=== PATIENT | female | born 1940 | race Caucasian/White ===

== ENCOUNTER 2018-04-17 18:29 | Emergency (ER) | payer MEDICARE, OTHER, SELFPAY ==
[2018-04-17] VITALS (12 sets, daily range): BP systolic 121–184; BP diastolic 53–89; PULSE 18–74; RESP 13–72; TEMP 37.4; O2SAT 58–99; BMI 42.5
--- NOTE | 2018-04-17 18:37 | DI.CT.S_ITS ---
PROCEDURE: CT HEAD/BRAIN WO CON INDICATIONS: visual changes in L eye, Pressure in head TECHNIQUE: Noncontrast 4.5 mm thick angled axial sections acquired from the foramen magnum to the vertex, with coronal and sagittal reformats. For radiation dose reduction, the following was used: automated exposure control, adjustment of mA and/or kV according to patient size. COMPARISON: [facility], CT, HEAD WITHOUT CONTRAST, 04/02/2016, 15:59. [facility], CT, HEAD WITHOUT CONTRAST, 11/27/2017, 9:40. FINDINGS: Image quality: Excellent. CSF spaces: Basal cisterns are patent. No extra-axial fluid collections. The ventricles are symmetric in size and shape. Brain: Linear 5 mm hyperdensity seen in the left frontal lobe on image 21 series 2. Elsewhere, no intracranial hemorrhage or masses. There is cerebral volume loss for age, with resultant ventricular and sulcal prominence. There are periventricular and deep white matter chronic small vessel ischemic changes. There is intracranial internal carotid artery atherosclerosis. Skull and face: Calvarium and visualized facial bones appear intact, without suspicious lesions. Sinuses: Mild left sphenoid sinus disease. IMPRESSION: Linear 5 mm hyperdensity in left frontal lobe, which is technically indeterminate, possibly cortical vessel, volume averaging artifact or calcification although this was not present on the prior studies. Technically cannot entirely exclude acute blood therefore as clinically warranted, a followup head CT in 6 hours could be performed. Elsewhere, no acute intracranial abnormality. Dictated by: Josse Marshall M.D. on 04/17/2018 at 19:36 Approved by: Josse Marshall M.D. on 04/17/2018 at 19:40
--- NOTE | 2018-04-17 18:44 | ED.HA ---
HPI - Headache General Chief Complaint: Headache Stated Complaint: HEAD PRESSURE AND HIGH BLOOD PRESSURE Time Seen by Provider: 04/17/18 18:44 Source: patient Mode of arrival: wheelchair Limitations: no limitations History of Present Illness HPI Narrative: The patient arrives with a headache, she describes a headache primarily as pressure. She has discomfort in the left adventism, and in the occipital area of the scalp. The discomfort is moderate. She has blurring to the left eye, but no visual field cut. She denies confusion or dysarthria. She is currently mobile and wheelchair. She has no new focal weakness. She denies recent illness. She has a prior history of CVA this started with similar symptoms. She does not currently feel ill other than the headache. Related Data Home Medications Medication Instructions Recorded Confirmed fluoxetine [Prozac] 10 mg PO QPM #0 05/06/10 [GLUCOSAMINE/CHONDROI] PO BID #0 11/27/17 acetaminophen 500 mg PO PRN PRN #0 11/27/17 calcium carbonate-vitamin D3 PO QDAY #0 11/27/17 [Oyster Shell Calcium-Vit D3] cyanocobalamin (vitamin B-12) 1,000 mcg PO QDAY #0 11/27/17 docusate sodium 100 mg PO BID #0 11/27/17 levothyroxine 0.112 mg PO QAM #0 11/27/17 loratadine 10 mg PO QDAY #0 11/27/17 multivitamin [Multiple Vitamins] 1 tab PO QDAY #0 11/27/17 primidone PO SEE INSTRUCTIONS #0 11/27/17 psyllium husk [Metamucil] 0.52 gm PO QID #0 11/27/17 sennosides-docusate sodium [Senna 1 tab PO BIDP PRN #0 11/27/17 with Docusate Sodium] triamcinolone acetonide [Nasacort] #0 11/27/17 vit C,H-Pm-tubbp-lutein-zeaxan 1 cap PO QPM #0 11/27/17 [Ocuvite Lutein and Zeaxanthin] diphenhydramine HCl [Benadryl 25 mg PO QPM #0 12/02/17 Allergy] Previous Rx's Medication Instructions Recorded carvedilol [Coreg] 25 mg PO BID 30 Days #0 tab 11/29/17 gabapentin [Neurontin] 300 mg PO HS 30 Days #0 cap 11/29/17 prednisone 10 mg PO [facility] #20 tab 11/29/17 Allergies Allergy/AdvReac Type Severity Reaction Status Date / Time ampicillin [AMPICILLIN] Allergy Unknown Unverified 02/12/18 11:55 Review of Systems Review of Systems All systems reviewed & are unremarkable except as noted in HPI and below Constitutional Denies chills, Denies fever(s), Reports headache(s), Denies lethargy and Reports weakness Eyes Reports as per HPI, Reports blurry vision, Denies loss of peripheral vision and Denies loss of vision ENT Ears, Nose, Mouth, and Throat: Reports headache(s) Cardiovascular Denies chest pain, Denies irregular heart rhythm, Denies lightheadedness, Denies palpitations, Denies dyspnea, Denies dyspnea on exertion and Denies orthopnea Respiratory Denies cough, Denies dyspnea, Denies dyspnea on exertion and Denies wheezing Gastrointestinal Gastrointestinal: Denies abdominal pain, Denies change in bowel habits, Denies diarrhea, Denies nausea and Denies vomiting Musculoskeletal Denies back pain, Reports muscle weakness ( Nonacute.), Denies numbness and Denies tingling Integumentary/Breasts Denies erythema and Denies rash Neurologic Reports headache(s), Denies loss of vision, Denies numbness, Denies tingling and Reports weakness Endocrine Denies palpitations Allergic/Immunologic Denies wheezing [facility] Social History Smoking Status: Never smoker Exam Initial Vital Signs Initial Vital Signs: Vital Signs Temperature 99.3 F 04/17/18 18:32 Pulse Rate 18 L 04/17/18 18:32 Respiratory Rate 72 H 04/17/18 18:32 Blood Pressure 134/73 H 04/17/18 18:32 Pulse Oximetry 98 04/17/18 18:32 Const General: cooperative, ill appearing and well hydrated Nutritional Appearance: well nourished Orientation: alert, awake, oriented x3 and not confused [facility] Head: normocephalic and atraumatic Ears: external ears normal and TM's normal bilaterally Nose: external nose normal and No nasal discharge Face and sinus: sinuses nontender, face symmetric, no sinus tenderness and No dry mucous membranes Mouth: oral mucosae normal and moist mucous membranes Teeth and gingiva: dentition normal Throat: tonsils normal and uvula midline Eyes General: appearance normal, both eyes and all related structures Visual Lambert: normal visual lambert by confrontation Eyelids: eyelids normal Conjunctivae: conjunctivae normal Sclera: sclerae normal Pupils: PERRL EOM: EOM intact bilaterally Neck Neck: normal visual inspection, trachea midline, No lymphadenopathy, No midline deformity, No JVD and other ( Palpable tenderness at the C1 level, left greater than right. no meningeal signs.) Thyroid: thyroid normal Lymphatic: No lymphedema Chest Chest: normal inspection of the chest Resp Effort & Inspection: normal respiratory effort, able to speak in complete sentences, no respiratory distress and no use of accessory muscles Auscultation: clear to auscultation bilaterally, no rales, no rhonchi and no wheezes GI Inspection: non-distended Palpation: soft, no hepatosplenomegaly, No guarding, No pulsatile mass and No tender Auscultation: normal bowel sounds Skin General: no rashes or lesions noted, No jaundice and No petechiae Neuro General: alert, oriented x3, no meningeal signs and no focal motor deficits Speech: speech normal Extrem General: normal to inspection, full ROM, no clubbing, cyanosis or edema and no pedal edema Course Hospital Course: 8:[address] result has been reviewed. Radiology suggested a repeat CT in 6 hr. The area of concern is small, there is no shift, and no obvious mass effect. I explored the possibility of an MRI, the MRI department is closed. The patient will be retained here for 6 hr for repeat head CT. Orders Ordered: ED Orders 04/17/18 18:37 CT head/brain wo con Stat 04/17/18 19:08 EKG-12 Lead Stat 04/17/18 20:37 B Type Natriuretic Peptide Stat Complete Blood Count AUTO DIFF Stat Comprehensive Metabolic Panel Stat Lipase Stat Partial Thromboplastin Time Stat Prothrombin Time INR Stat Troponin with CK Cardiac Panel Stat 04/18/18 00:25 Urine Microscopic Stat 04/18/18 00:32 CT head/brain wo con Stat Sodium Chloride (Normal Saline 0.9%) 1,000 mls @ 150 mls/hr IV CONT CB Last Admin: 04/17/18 22:00 Dose: 150 mls/hr Discontinued Medications Sodium Chloride (Normal Saline 0.9%) 1,000 mls @ 1,000 mls/hr IV BOLUS ONE Stop: 04/17/18 20:07 Last Infusion: 04/17/18 22:00 Dose: 1,000 mls/hr Admin: 04/17/18 19:49 Dose: 1,000 mls/hr Vital Signs - 8 hr 04/17/18 18:32 04/17/18 19:03 04/17/18 19:28 Temperature 99.3 F Pulse Rate 18 L 64 Pulse Rate [Orthostatic Lying] 63 Pulse Rate [Orthostatic Sitting] 69 Pulse Rate [Orthostatic Standing] 74 Respiratory Rate 72 H Blood Pressure 134/73 H Blood Pressure [Left Arm] 159/66 H Blood Pressure [Orthostatic Lying] 144/53 H Blood Pressure [Orthostatic Sitting] 164/75 H Blood Pressure [Orthostatic Standing] 146/70 H Blood Pressure [Right Arm] Pulse Oximetry 98 99 04/17/18 19:29 04/17/18 20:00 04/17/18 20:48 Temperature Pulse Rate 74 60 58 L Pulse Rate [Orthostatic Lying] Pulse Rate [Orthostatic Sitting] Pulse Rate [Orthostatic Standing] Respiratory Rate 13 16 20 Blood Pressure Blood Pressure [Left Arm] 146/70 H Blood Pressure [Orthostatic Lying] Blood Pressure [Orthostatic Sitting] Blood Pressure [Orthostatic Standing] Blood Pressure [Right Arm] 184/89 H Pulse Oximetry 99 94 04/17/18 21:00 04/17/18 21:30 04/17/18 22:00 Temperature Pulse Rate 58 L 68 63 Pulse Rate [Orthostatic Lying] Pulse Rate [Orthostatic Sitting] Pulse Rate [Orthostatic Standing] Respiratory Rate Blood Pressure Blood Pressure [Left Arm] 160/56 H Blood Pressure [Orthostatic Lying] Blood Pressure [Orthostatic Sitting] Blood Pressure [Orthostatic Standing] Blood Pressure [Right Arm] 130/81 H 135/66 H Pulse Oximetry 58 L 97 04/17/18 22:30 04/17/18 23:00 04/17/18 23:22 Temperature Pulse Rate 63 58 L 60 Pulse Rate [Orthostatic Lying] Pulse Rate [Orthostatic Sitting] Pulse Rate [Orthostatic Standing] Respiratory Rate 18 Blood Pressure Blood Pressure [Left Arm] Blood Pressure [Orthostatic Lying] Blood Pressure [Orthostatic Sitting] Blood Pressure [Orthostatic Standing] Blood Pressure [Right Arm] 135/66 H 126/60 H 121/59 H Pulse Oximetry 97 94 94 MDM - Headache Lab Data Result diagrams: 04/17/18 20:37 04/17/18 20:37 Lab Results 04/17/18 04/17/18 04/17/18 Range/Units 20:37 20:37 20:37 WBC 5.7 (4.5-11.0) X10^3/uL RBC 3.00 L (4.0-5.2) X10^6/uL Hgb 10.7 L (12.0-16.0) g/dL Hct 31.1 L (36-46) % MCV 103.4 H (80-100) fL MCH 35.6 H (26-34) PG MCHC 34.5 (30-36) % RDW 13.2 (11.6-14.8) % Plt Count 177 (150-400) X10^3/uL Neut % (Auto) 62.5 (50-75) % Lymph % (Auto) 21.9 L (25-40) % [place] % (Auto) 11.4 (3-14) % Eos % (Auto) 2.9 (2-4) % Baso % (Auto) 1.3 (0-2) % Neut # (Auto) 3600 (2018-0488) /uL PT 11.3 (10.1-12.7) SECONDS INR 1.0 (0.9-1.3) APTT 24 L (26.4-36.2) SECONDS Sodium 141 (137-145) mmol/L Potassium 4.7 (3.4-5.1) mmol/L Chloride 108 H (98-107) mmol/L Carbon Dioxide 26 (22-32) mmol/L BUN 33 H (7-17) mg/dL Creatinine 1.40 H (0.52-1.04) mg/dL Estimated GFR 36.4 L (>60) mL/min BUN/Creatinine Ratio 23.6 H (6-22) Glucose 102 (80-110) mg/dL Calcium 9.2 (8.4-10.2) mg/dL Total Bilirubin 0.2 (0.2-1.3) mg/dL AST 17 (14-36) IU/L ALT 28 (9-52) IU/L Alkaline Phosphatase 86 (38-126) U/L Total Creatine Kinase < 20 L (30-135) U/L Troponin I < 0.012 (0.01-0.034) ng/mL B-Natriuretic Peptide (<100) Total Protein 6.5 (6.3-8.2) g/dL Albumin 3.5 (3.5-5.0) g/dL Globulin 3.0 (1.7-4.1) g/dL Albumin/Globulin Ratio 1.2 (1.0-2.8) Lipase 143 (23-300) U/L / Range/Units 20:37 WBC (4.5-11.0) X10^3/uL RBC (4.0-5.2) X10^6/uL Hgb (12.0-16.0) g/dL Hct (36-46) % MCV (80-100) fL MCH (26-34) PG MCHC (30-36) % RDW (11.6-14.8) % Plt Count (150-400) X10^3/uL Neut % (Auto) (50-75) % Lymph % (Auto) (25-40) % Canyon % (Auto) (3-14) % Eos % (Auto) (2-4) % Baso % (Auto) (0-2) % Neut # (Auto) (0379-3405) /uL PT (10.1-12.7) SECONDS INR (0.9-1.3) APTT (26.4-36.2) SECONDS Sodium (137-145) mmol/L Potassium (3.4-5.1) mmol/L Chloride (98-107) mmol/L Carbon Dioxide (22-32) mmol/L BUN (7-17) mg/dL Creatinine (0.52-1.04) mg/dL Estimated GFR (>60) mL/min BUN/Creatinine Ratio (6-22) Glucose (80-110) mg/dL Calcium (8.4-10.2) mg/dL Total Bilirubin (0.2-1.3) mg/dL AST (14-36) IU/L ALT (9-52) IU/L Alkaline Phosphatase (38-126) U/L Total Creatine Kinase (30-135) U/L Troponin I (0.01-0.034) ng/mL B-Natriuretic Peptide 64.3 (<100) Total Protein (6.3-8.2) g/dL Albumin (3.5-5.0) g/dL Globulin (1.7-4.1) g/dL Albumin/Globulin Ratio (1.0-2.8) Lipase (23-300) U/L Imaging Data CT scan - head: Radiologist's impression: Linear 5 mm hyperdensity in left frontal lobe, which is technically indeterminate, possibly cortical vessel, volume averaging artifact or calcification although this was not present on the prior studies Repeat Head CT: Radiologist's impression: No acute intracranial process is identified. Atrophic changes are noted. Age-related ischemic changes are also noted in the white matter. The previously noted hyperdense linear focus is not appreciated. ECG Data Attestation: I personally reviewed and interpreted this ECG as follows: ( Sinus bradycardia rate 59. nonspecific ST T wave changes. No acute changes. Normal intervals. No ectopy.) Discharge Plan Departure Patient Disposition: Home, Self-Care Clinical Impression: Acute tension headache Instructions: Tension Headache Activity Restrictions/Additional Instructions: Tylenol 2 tablets every 4 hours as needed for headache, or Advil 2 tablets every 6 hours as needed for headache. Apply warm compresses to your posterior neck, this may help the headache also. Follow up with your doctor if symptoms persist, return here if significantly worse. Prescriptions: No Action fluoxetine [Prozac] 10 MG capsule 10 mg PO QPM Qty: 0 RF: 0 levothyroxine 112 MCG tablet 0.112 mg PO QAM Qty: 0 RF: 0 primidone 250 MG tablet PO SEE INSTRUCTIONS Qty: 0 RF: 0 calcium carbonate-vitamin D3 [Oyster Shell Calcium-Vit D3] 500 mg(1,250mg) -200 unit Tablet PO QDAY Qty: 0 RF: 0 acetaminophen 500 MG tablet 500 mg PO PRN PRNQty: 0 RF: 0 loratadine 10 MG tablet 10 mg PO QDAY Qty: 0 RF: 0 triamcinolone acetonide [Nasacort] 55 MCG/PUFF aerosol,spray Qty: 0 RF: 0 [GLUCOSAMINE/CHONDROI] PO BID Qty: 0 RF: 0 cyanocobalamin (vitamin B-12) 1,000 MCG tablet extended release 1,000 mcg PO QDAY Qty: 0 RF: 0 multivitamin [Multiple Vitamins] 1 EACH tablet 1 tab PO QDAY Qty: 0 RF: 0 vit C,P-Yt-ztuwf-lutein-zeaxan [Ocuvite Lutein and Zeaxanthin] 1 EACH capsule 1 cap PO QPM Qty: 0 RF: 0 docusate sodium 100 MG capsule 100 mg PO BID Qty: 0 RF: 0 psyllium husk [Metamucil] 0.52 GM capsule 0.52 gm PO QID Qty: 0 RF: 0 sennosides-docusate sodium [Senna with Docusate Sodium] 8.6 MG/50 MG tablet 1 tab PO BIDP PRNQty: 0 RF: 0 carvedilol [Coreg] 25 MG tablet 25 mg PO BID 30 Days Qty: 0 RF: 0 gabapentin [Neurontin] 300 MG capsule 300 mg PO HS 30 Days Qty: 0 RF: 0 prednisone 10 MG tablet 10 mg PO [facility] Qty: 20 RF: 0 diphenhydramine HCl [Benadryl Allergy] 25 MG tablet 25 mg PO QPM Qty: 0 RF: 0
--- NOTE | 2018-04-17 18:50 | ED_ITS ---
HPI - Headache General Chief Complaint: Headache Stated Complaint: HEAD PRESSURE AND HIGH BLOOD PRESSURE Time Seen by Provider: 04/17/18 18:44 Source: patient Mode of arrival: wheelchair Limitations: no limitations History of Present Illness HPI Narrative: The patient arrives with a headache, she describes a headache primarily as pressure. She has discomfort in the left jainism, and in the occipital area of the scalp. The discomfort is moderate. She has blurring to the left eye, but no visual field cut. She denies confusion or dysarthria. She is currently mobile and wheelchair. She has no new focal weakness. She denies recent illness. She has a prior history of CVA this started with similar symptoms. She does not currently feel ill other than the headache. Related Data Home Medications Medication Instructions Recorded Confirmed fluoxetine [Prozac] 10 mg PO QPM #0 05/06/10 [GLUCOSAMINE/CHONDROI] PO BID #0 11/27/17 acetaminophen 500 mg PO PRN PRN #0 11/27/17 calcium carbonate-vitamin D3 PO QDAY #0 11/27/17 [Oyster Shell Calcium-Vit D3] cyanocobalamin (vitamin B-12) 1,000 mcg PO QDAY #0 11/27/17 docusate sodium 100 mg PO BID #0 11/27/17 levothyroxine 0.112 mg PO QAM #0 11/27/17 loratadine 10 mg PO QDAY #0 11/27/17 multivitamin [Multiple Vitamins] 1 tab PO QDAY #0 11/27/17 primidone PO SEE INSTRUCTIONS #0 11/27/17 psyllium husk [Metamucil] 0.52 gm PO QID #0 11/27/17 sennosides-docusate sodium [Senna 1 tab PO BIDP PRN #0 11/27/17 with Docusate Sodium] triamcinolone acetonide [Nasacort] #0 11/27/17 vit C,A-Rs-yaeua-lutein-zeaxan 1 cap PO QPM #0 11/27/17 [Ocuvite Lutein and Zeaxanthin] diphenhydramine HCl [Benadryl 25 mg PO QPM #0 12/02/17 Allergy] Previous Rx's Medication Instructions Recorded carvedilol [Coreg] 25 mg PO BID 30 Days #0 tab 11/29/17 gabapentin [Neurontin] 300 mg PO HS 30 Days #0 cap 11/29/17 prednisone 10 mg PO [facility] #20 tab 11/29/17 Allergies Allergy/AdvReac Type Severity Reaction Status Date / Time ampicillin [AMPICILLIN] Allergy Unknown Unverified 02/12/18 11:55 Review of Systems Review of Systems All systems reviewed & are unremarkable except as noted in HPI and below Constitutional Denies chills, Denies fever(s), Reports headache(s), Denies lethargy and Reports weakness Eyes Reports as per HPI, Reports blurry vision, Denies loss of peripheral vision and Denies loss of vision ENT Ears, Nose, Mouth, and Throat: Reports headache(s) Cardiovascular Denies chest pain, Denies irregular heart rhythm, Denies lightheadedness, Denies palpitations, Denies dyspnea, Denies dyspnea on exertion and Denies orthopnea Respiratory Denies cough, Denies dyspnea, Denies dyspnea on exertion and Denies wheezing Gastrointestinal Gastrointestinal: Denies abdominal pain, Denies change in bowel habits, Denies diarrhea, Denies nausea and Denies vomiting Musculoskeletal Denies back pain, Reports muscle weakness ( Nonacute.), Denies numbness and Denies tingling Integumentary/Breasts Denies erythema and Denies rash Neurologic Reports headache(s), Denies loss of vision, Denies numbness, Denies tingling and Reports weakness Endocrine Denies palpitations Allergic/Immunologic Denies wheezing [facility] Social History Smoking Status: Never smoker Exam Initial Vital Signs Initial Vital Signs: Vital Signs Temperature 99.3 F 04/17/18 18:32 Pulse Rate 18 L 04/17/18 18:32 Respiratory Rate 72 H 04/17/18 18:32 Blood Pressure 134/73 H 04/17/18 18:32 Pulse Oximetry 98 04/17/18 18:32 Const General: cooperative, ill appearing and well hydrated Nutritional Appearance: well nourished Orientation: alert, awake, oriented x3 and not confused [facility] Head: normocephalic and atraumatic Ears: external ears normal and TM's normal bilaterally Nose: external nose normal and No nasal discharge Face and sinus: sinuses nontender, face symmetric, no sinus tenderness and No dry mucous membranes Mouth: oral mucosae normal and moist mucous membranes Teeth and gingiva: dentition normal Throat: tonsils normal and uvula midline Eyes General: appearance normal, both eyes and all related structures Visual Lambert: normal visual lambert by confrontation Eyelids: eyelids normal Conjunctivae: conjunctivae normal Sclera: sclerae normal Pupils: PERRL EOM: EOM intact bilaterally Neck Neck: normal visual inspection, trachea midline, No lymphadenopathy, No midline deformity, No JVD and other ( Palpable tenderness at the C1 level, left greater than right. no meningeal signs.) Thyroid: thyroid normal Lymphatic: No lymphedema Chest Chest: normal inspection of the chest Resp Effort & Inspection: normal respiratory effort, able to speak in complete sentences, no respiratory distress and no use of accessory muscles Auscultation: clear to auscultation bilaterally, no rales, no rhonchi and no wheezes GI Inspection: non-distended Palpation: soft, no hepatosplenomegaly, No guarding, No pulsatile mass and No tender Auscultation: normal bowel sounds Skin General: no rashes or lesions noted, No jaundice and No petechiae Neuro General: alert, oriented x3, no meningeal signs and no focal motor deficits Speech: speech normal Extrem General: normal to inspection, full ROM, no clubbing, cyanosis or edema and no pedal edema Course Hospital Course: 8:[address] result has been reviewed. Radiology suggested a repeat CT in 6 hr. The area of concern is small, there is no shift, and no obvious mass effect. I explored the possibility of an MRI, the MRI department is closed. The patient will be retained here for 6 hr for repeat head CT. Orders Ordered: ED Orders 04/17/18 18:37 CT head/brain wo con Stat 04/17/18 19:08 EKG-12 Lead Stat 04/17/18 20:37 B Type Natriuretic Peptide Stat Complete Blood Count AUTO DIFF Stat Comprehensive Metabolic Panel Stat Lipase Stat Partial Thromboplastin Time Stat Prothrombin Time INR Stat Troponin with CK Cardiac Panel Stat 04/18/18 00:25 Urine Microscopic Stat 04/18/18 00:32 CT head/brain wo con Stat Sodium Chloride (Normal Saline 0.9%) 1,000 mls @ 150 mls/hr IV CONT CB Last Admin: 04/17/18 22:00 Dose: 150 mls/hr Discontinued Medications Sodium Chloride (Normal Saline 0.9%) 1,000 mls @ 1,000 mls/hr IV BOLUS ONE Stop: 04/17/18 20:07 Last Infusion: 04/17/18 22:00 Dose: 1,000 mls/hr Admin: 04/17/18 19:49 Dose: 1,000 mls/hr Vital Signs - 8 hr 04/17/18 18:32 04/17/18 19:03 04/17/18 19:28 Temperature 99.3 F Pulse Rate 18 L 64 Pulse Rate [Orthostatic Lying] 63 Pulse Rate [Orthostatic Sitting] 69 Pulse Rate [Orthostatic Standing] 74 Respiratory Rate 72 H Blood Pressure 134/73 H Blood Pressure [Left Arm] 159/66 H Blood Pressure [Orthostatic Lying] 144/53 H Blood Pressure [Orthostatic Sitting] 164/75 H Blood Pressure [Orthostatic Standing] 146/70 H Blood Pressure [Right Arm] Pulse Oximetry 98 99 04/17/18 19:29 04/17/18 20:00 04/17/18 20:48 Temperature Pulse Rate 74 60 58 L Pulse Rate [Orthostatic Lying] Pulse Rate [Orthostatic Sitting] Pulse Rate [Orthostatic Standing] Respiratory Rate 13 16 20 Blood Pressure Blood Pressure [Left Arm] 146/70 H Blood Pressure [Orthostatic Lying] Blood Pressure [Orthostatic Sitting] Blood Pressure [Orthostatic Standing] Blood Pressure [Right Arm] 184/89 H Pulse Oximetry 99 94 04/17/18 21:00 04/17/18 21:30 04/17/18 22:00 Temperature Pulse Rate 58 L 68 63 Pulse Rate [Orthostatic Lying] Pulse Rate [Orthostatic Sitting] Pulse Rate [Orthostatic Standing] Respiratory Rate Blood Pressure Blood Pressure [Left Arm] 160/56 H Blood Pressure [Orthostatic Lying] Blood Pressure [Orthostatic Sitting] Blood Pressure [Orthostatic Standing] Blood Pressure [Right Arm] 130/81 H 135/66 H Pulse Oximetry 58 L 97 04/17/18 22:30 04/17/18 23:00 04/17/18 23:22 Temperature Pulse Rate 63 58 L 60 Pulse Rate [Orthostatic Lying] Pulse Rate [Orthostatic Sitting] Pulse Rate [Orthostatic Standing] Respiratory Rate 18 Blood Pressure Blood Pressure [Left Arm] Blood Pressure [Orthostatic Lying] Blood Pressure [Orthostatic Sitting] Blood Pressure [Orthostatic Standing] Blood Pressure [Right Arm] 135/66 H 126/60 H 121/59 H Pulse Oximetry 97 94 94 MDM - Headache Lab Data Result diagrams: 04/17/18 20:37 04/17/18 20:37 Lab Results 04/17/18 04/17/18 04/17/18 Range/Units 20:37 20:37 20:37 WBC 5.7 (4.5-11.0) X10^3/uL RBC 3.00 L (4.0-5.2) X10^6/uL Hgb 10.7 L (12.0-16.0) g/dL Hct 31.1 L (36-46) % MCV 103.4 H (80-100) fL MCH 35.6 H (26-34) PG MCHC 34.5 (30-36) % RDW 13.2 (11.6-14.8) % Plt Count 177 (150-400) X10^3/uL Neut % (Auto) 62.5 (50-75) % Lymph % (Auto) 21.9 L (25-40) % [place] % (Auto) 11.4 (3-14) % Eos % (Auto) 2.9 (2-4) % Baso % (Auto) 1.3 (0-2) % Neut # (Auto) 3600 (0190-1546) /uL PT 11.3 (10.1-12.7) SECONDS INR 1.0 (0.9-1.3) APTT 24 L (26.4-36.2) SECONDS Sodium 141 (137-145) mmol/L Potassium 4.7 (3.4-5.1) mmol/L Chloride 108 H (98-107) mmol/L Carbon Dioxide 26 (22-32) mmol/L BUN 33 H (7-17) mg/dL Creatinine 1.40 H (0.52-1.04) mg/dL Estimated GFR 36.4 L (>60) mL/min BUN/Creatinine Ratio 23.6 H (6-22) Glucose 102 (80-110) mg/dL Calcium 9.2 (8.4-10.2) mg/dL Total Bilirubin 0.2 (0.2-1.3) mg/dL AST 17 (14-36) IU/L ALT 28 (9-52) IU/L Alkaline Phosphatase 86 (38-126) U/L Total Creatine Kinase < 20 L (30-135) U/L Troponin I < 0.012 (0.01-0.034) ng/mL B-Natriuretic Peptide (<100) Total Protein 6.5 (6.3-8.2) g/dL Albumin 3.5 (3.5-5.0) g/dL Globulin 3.0 (1.7-4.1) g/dL Albumin/Globulin Ratio 1.2 (1.0-2.8) Lipase 143 (23-300) U/L / Range/Units 20:37 WBC (4.5-11.0) X10^3/uL RBC (4.0-5.2) X10^6/uL Hgb (12.0-16.0) g/dL Hct (36-46) % MCV (80-100) fL MCH (26-34) PG MCHC (30-36) % RDW (11.6-14.8) % Plt Count (150-400) X10^3/uL Neut % (Auto) (50-75) % Lymph % (Auto) (25-40) % [place] % (Auto) (3-14) % Eos % (Auto) (2-4) % Baso % (Auto) (0-2) % Neut # (Auto) (6925-5036) /uL PT (10.1-12.7) SECONDS INR (0.9-1.3) APTT (26.4-36.2) SECONDS Sodium (137-145) mmol/L Potassium (3.4-5.1) mmol/L Chloride (98-107) mmol/L Carbon Dioxide (22-32) mmol/L BUN (7-17) mg/dL Creatinine (0.52-1.04) mg/dL Estimated GFR (>60) mL/min BUN/Creatinine Ratio (6-22) Glucose (80-110) mg/dL Calcium (8.4-10.2) mg/dL Total Bilirubin (0.2-1.3) mg/dL AST (14-36) IU/L ALT (9-52) IU/L Alkaline Phosphatase (38-126) U/L Total Creatine Kinase (30-135) U/L Troponin I (0.01-0.034) ng/mL B-Natriuretic Peptide 64.3 (<100) Total Protein (6.3-8.2) g/dL Albumin (3.5-5.0) g/dL Globulin (1.7-4.1) g/dL Albumin/Globulin Ratio (1.0-2.8) Lipase (23-300) U/L Imaging Data CT scan - head: Radiologist's impression: Linear 5 mm hyperdensity in left frontal lobe, which is technically indeterminate, possibly cortical vessel, volume averaging artifact or calcification although this was not present on the prior studies Repeat Head CT: Radiologist's impression: No acute intracranial process is identified. Atrophic changes are noted. Age-related ischemic changes are also noted in the white matter. The previously noted hyperdense linear focus is not appreciated. ECG Data Attestation: I personally reviewed and interpreted this ECG as follows: ( Sinus bradycardia rate 59. nonspecific ST T wave changes. No acute changes. Normal intervals. No ectopy.) Discharge Plan Departure Patient Disposition: Home, Self-Care Clinical Impression: Acute tension headache Instructions: Tension Headache Activity Restrictions/Additional Instructions: Tylenol 2 tablets every 4 hours as needed for headache, or Advil 2 tablets every 6 hours as needed for headache. Apply warm compresses to your posterior neck, this may help the headache also. Follow up with your doctor if symptoms persist, return here if significantly worse. Prescriptions: No Action fluoxetine [Prozac] 10 MG capsule 10 mg PO QPM Qty: 0 RF: 0 levothyroxine 112 MCG tablet 0.112 mg PO QAM Qty: 0 RF: 0 primidone 250 MG tablet PO SEE INSTRUCTIONS Qty: 0 RF: 0 calcium carbonate-vitamin D3 [Oyster Shell Calcium-Vit D3] 500 mg(1,250mg) - 200 unit Tablet PO QDAY Qty: 0 RF: 0 acetaminophen 500 MG tablet 500 mg PO PRN PRNQty: 0 RF: 0 loratadine 10 MG tablet 10 mg PO QDAY Qty: 0 RF: 0 triamcinolone acetonide [Nasacort] 55 MCG/PUFF aerosol,spray Qty: 0 RF: 0 [GLUCOSAMINE/CHONDROI] PO BID Qty: 0 RF: 0 cyanocobalamin (vitamin B-12) 1,000 MCG tablet extended release 1,000 mcg PO QDAY Qty: 0 RF: 0 multivitamin [Multiple Vitamins] 1 EACH tablet 1 tab PO QDAY Qty: 0 RF: 0 vit C,F-Jd-bmfpc-lutein-zeaxan [Ocuvite Lutein and Zeaxanthin] 1 EACH capsule 1 cap PO QPM Qty: 0 RF: 0 docusate sodium 100 MG capsule 100 mg PO BID Qty: 0 RF: 0 psyllium husk [Metamucil] 0.52 GM capsule 0.52 gm PO QID Qty: 0 RF: 0 sennosides-docusate sodium [Senna with Docusate Sodium] 8.6 MG/50 MG tablet 1 tab PO BIDP PRNQty: 0 RF: 0 carvedilol [Coreg] 25 MG tablet 25 mg PO BID 30 Days Qty: 0 RF: 0 gabapentin [Neurontin] 300 MG capsule 300 mg PO HS 30 Days Qty: 0 RF: 0 prednisone 10 MG tablet 10 mg PO [facility] Qty: 20 RF: 0 diphenhydramine HCl [Benadryl Allergy] 25 MG tablet 25 mg PO QPM Qty: 0 RF: 0
[2018-04-17] MEDS: SODIUM CHLORIDE 0.9% 1,000 ML 1000 ML IV (19:49)
[2018-04-17 20:58] LABS: Alanine Aminotransferase 28 IU/L (9-52); Albumin 3.5 g/dL (3.5-5.0); Albumin Globulin Ratio 1.2 (1.0-2.8); Alkaline Phosphatase 86 U/L (38-126); Aspartate Aminotransferase 17 IU/L (14-36); BUN Creatinine Ratio 23.6 (6-22); Bilirubin Total 0.2 mg/dL (0.2-1.3); Blood Urea Nitrogen 33 mg/dL (7-17); Calcium 9.2 mg/dL (8.4-10.2); Carbon Dioxide 26 mmol/L (22-32); Chloride 108 mmol/L (98-107); Creatine Kinase < 20 U/L (30-135); Estimated Glomerular Filt Rate 36.4 mL/min (>60); Glucose 102 mg/dL (80-110); HEMOLYSIS < 15 (0-50); Lipase 143 U/L (23-300); Potassium 4.7 mmol/L (3.4-5.1); Sodium 141 mmol/L (137-145); Total Protein 6.5 g/dL (6.3-8.2)
[2018-04-17 21:00] LABS: Prothrombin Time 11.3 SECONDS (10.1-12.7)
[2018-04-17 21:03] LABS: PTT Partial Thromboplastin Tim 24 SECONDS (26.4-36.2)
[2018-04-17 21:10] LABS: Troponin I < 0.012 ng/mL (0.01-0.034)
[2018-04-17 21:14] LABS: Add Manual Diff / Slide Review NO; Basophils Percent Auto 1.3 % (0-2); Eosinophils Percent Auto 2.9 % (2-4); Hematocrit 31.1 % (36-46); Hemoglobin 10.7 g/dL (12.0-16.0); Lymphocytes Percent Auto 21.9 % (25-40); Mean Corpuscular HGB Conc 34.5 % (30-36); Mean Corpuscular Hemoglobin 35.6 PG (26-34); Mean Corpuscular Volume 103.4 fL (80-100); Monocytes Percent Auto 11.4 % (3-14); Neutrophils Absolute Auto 3600 /uL (3000-5900); Neutrophils Percent Auto 62.5 % (50-75); Platelet Count 177 X10^3/uL (150-400); Red Cell Distribution Width 13.2 % (11.6-14.8); White Blood Cell Count 5.7 X10^3/uL (4.5-11.0)
[2018-04-17 21:28] LABS: B Type Natriuretic Peptide 64.3 (<100)
[2018-04-17] MEDS: SODIUM CHLORIDE 0.9% 1,000 ML 150 ML IV (22:00)
[2018-04-18] VITALS: BP 123/52; PULSE 68; RESP 17; O2SAT 96
--- NOTE | 2018-04-18 00:32 | DI.CT.S_ITS ---
PROCEDURE: CT HEAD/BRAIN WO CON INDICATIONS: Headache. Possible small hemorrhage TECHNIQUE: Noncontrast 4.5 mm thick angled axial sections acquired from the foramen magnum to the vertex, with coronal and sagittal reformats. For radiation dose reduction, the following was used: automated exposure control, adjustment of mA and/or kV according to patient size. COMPARISON: [facility], CT, HEAD WITHOUT CONTRAST, 11/27/2017, 9:40. [facility], CT, CT HEAD/BRAIN WO CON, 04/17/2018, 18:35. [facility], CT, HEAD WITHOUT CONTRAST, 04/02/2016, 15:59. [facility], CT, HEAD WITHOUT CONTRAST, 06/20/2015, 15:25. FINDINGS: Image quality: Excellent. CSF spaces: Basal cisterns are patent. No extra-axial fluid collections. The ventricles are symmetric in size and shape. Brain: No intracranial bleeds or masses. Hyperdensity is identified in the posterior left frontal lobe is not seen on the current study. There is cerebral volume loss for age, with resultant ventricular and sulcal prominence. There are periventricular and deep white matter chronic small vessel ischemic changes. Small, chronic bilateral internal capsule lacunar infarcts are stable compared to prior exams. There is intracranial internal carotid artery atherosclerosis. Skull and face: Calvarium and visualized facial bones appear intact, without suspicious lesions. Sinuses: Visualized sinuses and mastoids are clear. IMPRESSION: No acute intracranial disease process. Dictated by: Delia Diaz MD, PhD on 04/18/2018 at 7:22 Approved by: Delia Diaz MD, PhD on 04/18/2018 at 7:27
[2018-04-18 01:42] LABS: RBC Urine None Seen (0-5/HPF)
[2018-04-18 01:48] LABS: WBC Urine 1-5/HPF (0-5/HPF)
[2018-04-18 01:49] VITALS: BP 166/69; PULSE 62; RESP 13; O2SAT 96
[2018-04-18 01:49] LABS: Bacteria Urine Few (2-10); Culture Indicated Urine Specimen Cultured; Hyaline Casts Urine 0-1/LPF
== END 2018-04-18 01:49 | disposition home or self-care (01) ==
PROVIDERS: Emergency Provider Emergency Medicine; PCP Family Medicine
DX: G44.209 Tension-type headache, unspecified, not intractable (principal)
CPT/HCPCS: 70450; 80053; 81003; 81015; 82550; 82553; 83690; 83880; 84484; 85025; 85610; 85730; 87086; 93005; 96360; 96361; 99285

== ENCOUNTER → 2021-11-09 15:37 | Outpatient (CLI) | payer MEDICARE, OTHER, MEDICAID, SELFPAY ==
--- NOTE | 2021-11-09 15:45 | DI.MRI.S_ITS ---
PROCEDURE: MR HIP RT WO CON INDICATIONS: RULING OUT FRACTURE TECHNIQUE: Noncontrast coronal T1 spin echo and STIR through the bony pelvis. Coronal and axial T2 fast spin echo with fat saturation, sagittal T1 spin echo, and oblique axial T2 fast spin echo with fat saturation through the hip. COMPARISON: None. FINDINGS: Image quality: Excellent. Bones and joints: Osteoarthritic changes are noted in bilateral hip joints slightly worse on the right side with bilateral superior joint space narrowing, subchondral sclerosis and lateral small marginal osteophyte formation. No marrow edema. No intraosseous lesions or fractures. No avascular necrosis of the femoral heads. The visualized lower lumbar spine appears normally aligned. Tendons and ligaments: Right gluteus medius and minimus tendinosis and low-grade partial-thickness tear at their insertions on greater trochanter is seen extending to musculotendinous junction, without associated muscle atrophy. The nearby proximal iliotibial band also appears intact. The iliopsoas tendon appears intact, without adjacent bursal fluid collections or evidence for impingement syndrome. Tendinosis involving origin of hamstring tendons at their insertions on ischial tuberosity is seen. There is mild muscle strain/low-grade partial-thickness tear involving right pectineus muscle and right adductor longus and brevis muscles. The ligamentum teres appears intact where visualized. Labrum and cartilage: Focal area of signal abnormality involving superior anterior right hip labrum concerning for focal labral tear. Thinning of articulating cartilages of femoral head is also seen. The alpha angle of the femur is within normal limits at less than 55 degrees. Soft tissues: Visualized muscles demonstrate normal bulk and internal signal. Quadratus femoris muscle demonstrates no internal edema to suggest ischiofemoral impingement. The proximal sciatic neurovascular bundle appears normal adjacent to the hamstring tendons. No free pelvic fluid. Bladder wall thickness is normal. Genitourinary structures and bowel loops appear normal where visualized. IMPRESSION: 1. No acute pelvic or right hip fracture. No hip dislocation. Right worse than left bilateral hip joint osteoarthritis. No evidence of avascular necrosis of femoral head. 2. Tendinosis and low-grade partial-thickness tear involving right gluteus medius and minimus tendons extending to musculotendinous junction. Tendinosis involving right hamstring tendon origins at ischial tuberosity. Mild muscle strain/low-grade intrasubstance partial-thickness tear involving right pectineus muscle and right adductor longus and brevis muscles. 3. Finding is concerning for focal superior anterior right hip labral tear. Thinning of articulating cartilages in right femoral head. Dictated by: Andrew Logan M.D. on 11/10/2021 at 8:30 Approved by: Andrew Logan M.D. on 11/10/2021 at 8:40
--- NOTE | 2021-11-09 15:45 | DI.MRI.S_ITS ---
PROCEDURE: MR LUMBAR SPINE WO CON INDICATIONS: Clinical concern for FRACTURE TECHNIQUE: Noncontrast sagittal T1 spin echo and T2 fast echo, sagittal STIR, axial T1 and T2 fast spin echo through the lumbar spine. In cases with scoliosis, additional coronal T2 fast spin echo may be performed. COMPARISON: [facility], MR, L-SPINE WITHOUT CONTRAST, 09/23/2014, 10:47. [facility], MR, L-SPINE WITHOUT CONTRAST, 04/20/2008, 17:45. [facility], MR, L-SPINE WITHOUT CONTRAST, 02/12/2006, 10:51. [facility], MR, L-SPINE W&WO CONTRAST, 11/28/2017, 13:20. [facility], MR, L-SPINE WITHOUT CONTRAST, 02/08/2016, 10:17. FINDINGS: Image quality: This examination is limited by involuntary motion artifact. Alignment and Curvature: There is [id number] levoconvex lumbar scoliosis. Minimal retrolisthesis is seen at L3-L4 and L4-L5. Bone Marrow: Marrow is of normal overall signal. Areas of fatty metaplasia can be seen, including involving the sacrum. No acute vertebral body compression fractures. Spinal Cord: Conus medullaris terminates at the L1 level. Visualized cord demonstrates normal signal and size. Paraspinous Soft Tissues: No paravertebral masses. T12-L1: Wzas-bv-qrnnzexl loss of disc height and disc signal can be seen. Mild to moderate disc bulge is seen, which is eccentric the left. Moderate facet joint hypertrophy is seen. There is moderate right-sided and moderate to severe left-sided neural foraminal narrowing seen. There is a degree of compression seen upon exiting left T12 nerve root. Mild central canal narrowing is seen. When comparison is made with the prior images, these findings are similar. L1-L2: Moderate to severe loss of disc height and disc signal can be seen. Bridging endplate osteophytes are seen. At least moderate disc bulge is seen, which is eccentric to the right. Bridging endplate osteophytes are seen on the right, as on series 2, image 6. Moderate facet joint hypertrophy is seen. There is moderate to severe right-sided neural foraminal narrowing, with a degree of compression upon exiting right L1 nerve root. Mild left-sided neural foraminal narrowing can be seen. Mild to moderate central canal narrowing is seen. No significant change from the prior. L2-L3: Moderate to severe loss of disc height and disc signal can be seen on the right side. Bridging endplate osteophytes are seen on the right, as on series 2, image 5. At least moderate disc bulge is seen, which is eccentric to the right. Moderate facet joint hypertrophy is seen. There is moderate right-sided and minimal left-sided neural foraminal narrowing seen. Moderate central canal narrowing is seen. No significant change from the prior. L3-L4: At least moderate loss of disc height and disc signal can be seen. Bridging endplate osteophytes are seen right side. Moderate disc bulge is seen, which is eccentric to the right. There is a central/left disc protrusion seen. Moderate to prominent facet hypertrophy can be seen at this level. There is at least moderate bilateral neural foraminal narrowing seen. There is a degree of compression seen upon the exiting nerve roots. Moderate to severe central canal narrowing is seen at this level. Stable from the prior study. L4-L5: Moderate to severe loss of disc height and disc signal can be seen. Bridging endplate osteophytes are seen on the left, as on series 2, image 5. At least moderate disc bulge is seen, which is eccentric to the left. There is at least moderate facet hypertrophy seen. There is moderate to severe bilateral neural foraminal narrowing seen, right worse than left. There is a degree of compression seen upon the exiting nerve roots. Moderate central canal narrowing is seen. When comparison is made with the prior images, these findings are similar. L5-S1: The disc height is well-preserved. Loss of disc signal is seen at this level. Moderate disc bulge is seen, which is eccentric to the left. Bridging endplate osteophytes are seen on the left, as on series 2, image 6. Mild to moderate disc bulge is seen. There is a focal annular fissure seen posteriorly. Moderate facet joint hypertrophy is seen. There is at least moderate bilateral neural foraminal narrowing seen, right worse than left. There is a degree of compression seen upon the exiting nerve roots. Mild to moderate central canal narrowing is seen. When comparison is made with the prior images, these findings are similar. IMPRESSION: Multiple levels of relatively prominent lumbar spine degenerative change are seen, which are similar to the images of 2018. [id number] levoconvex lumbar scoliosis is seen. Dictated by: Skipisabelle Yang M.D. on 11/09/2021 at 16:35 Approved by: Skip Yang M.D. on 11/09/2021 at 16:43
== END ==
PROVIDERS: PCP Family Medicine; Referring Provider Physician Assistant Medical; Visit Provider Physician Assistant Medical
DX: M47.816 Spondylosis without myelopathy or radiculopathy, lumbar region (principal); M47.817 Spondylosis without myelopathy or radiculopathy, lumbosacral region; M48.062 Spinal stenosis, lumbar region with neurogenic claudication; M41.86 Other forms of scoliosis, lumbar region; M16.0 Bilateral primary osteoarthritis of hip; S76.311A Strain of muscle, fascia and tendon of the posterior muscle group at thigh level, right thigh, initial encounter; M25.551 Pain in right hip
CPT/HCPCS: 72148; 73721

== ENCOUNTER → 2021-11-24 11:05 | Outpatient (CLI) | payer MEDICARE, OTHER, MEDICAID, SELFPAY ==
--- NOTE | 2021-11-24 | DI.RAD.S_ITS ---
PROCEDURE: FL JOINT INJECTION LARGE RT INDICATIONS: Bilateral primary osteoarthritis of hip COMPARISON: None. TECHNIQUE: The indications, alternatives, benefits, risks, and complications of the procedure were explained to the patient. Written informed consent was obtained and placed in the chart. The patient was placed in an appropriate position on the fluoroscopy table, and a site was chosen for percutaneous access under fluoroscopic guidance. The site was prepped and draped in a sterile fashion. Local anesthetic was administered using a 1% lidocaine solution. A hypodermic or spinal needle was then used to access the symptomatic joint. Intra-articular location of the needle tip was confirmed by injecting a small amount of contrast, followed by steroid administration. The needle was then withdrawn, and a bandage applied to the puncture site. FINDINGS: Joint injected: Right hip Medications injected: 1 mL of 40 mg/mL Kenalog and 0.5% Ropivacaine mixture. Patient's pain before injection: 5 out of 10. Patient's pain after injection: 2 out of 10. Complications: None. IMPRESSION: Successful fluoroscopically guided administration of steroid and anaesthetic solution into the right hip joint. Dictated by: Gabe Sinclair M.D. on 11/24/2021 at 12:35 Approved by: Gabe Sinclair M.D. on 11/24/2021 at 12:36
== END ==
PROVIDERS: PCP Family Medicine; Referring Provider Orthopaedic Surgery; Visit Provider Orthopaedic Surgery
DX: M16.0 Bilateral primary osteoarthritis of hip (principal)
CPT/HCPCS: 20610; 77002

== ENCOUNTER → 2022-03-16 12:33 | Outpatient (CLI) | payer MEDICARE, OTHER, MEDICAID, SELFPAY ==
--- NOTE | 2022-03-16 | DI.MG.S_ITS ---
UNILATERAL LEFT DIGITAL DIAGNOSTIC MAMMOGRAM 3D/2D: 03/16/2022 CLINICAL: Short term follow up for the left breast. Comparison is made to exams dated: 06/23/2021 ultrasound biopsy, 06/23/2021 ultrasound biopsy, 06/23/2021 mammogram, 06/15/2021 ultrasound, 06/15/2021 mammogram, and 06/01/2021 mammogram - [facility]. There are scattered fibroglandular elements in left breast. There is a 1.2 cm irregular mass with a spiculated margin in the left breast at 4 o'clock middle depth. This is not significantly changed and correlates with the biopsy. There also is a 0.9 cm irregular mass in the left breast at 11 o'clock middle depth. This is not significantly changed and correlates with the biopsy. No other significant masses or calcifications are seen in the breast. IMPRESSION: INCOMPLETE: NEEDS ADDITIONAL IMAGING EVALUATION The 1.2 cm irregular mass in the left breast at 4 o'clock middle depth is consistent with the known carcinoma. The 0.9 cm irregular mass in the left breast at 11 o'clock middle depth is consistent with the known carcinoma. A targeted ultrasound is recommended and will immediately follow. This exam was interpreted at Station ID: [id number]. NOTE: For mammograms, a report in lay terms will be sent to the patient. Approximately 15% of breast malignancies will not be visualized mammographically. In the management of a palpable breast mass, a negative mammogram must not discourage biopsy of a clinically suspicious lesion. Electronically Signed By: Elmer Melendez M.D. slc/:03/16/2022 13:19:18 ACR BI-RADS Category 0: Incomplete [id number]
--- NOTE | 2022-03-16 | DI.US.S_ITS ---
LIMITED ULTRASOUND OF LEFT BREAST: 03/16/2022 CLINICAL: 3 month follow-up post biopsy. Comparison is made to exams dated: 03/16/2022 mammogram - [facility], 06/23/2021 ultrasound biopsy, 06/23/2021 ultrasound biopsy, 06/23/2021 mammogram, 06/15/2021 ultrasound, and 06/01/2021 mammogram - [facility]. Color flow and real-time ultrasound of the left breast 4 o'clock and 10 o'clock regions were performed. [place] scale images of the real-time examination were reviewed. There is a 1.1 cm x 0.9 cm x 0.5 cm mass (previously 1.3 cm x 1.2 cm x 1.1 cm on 06/15/2021) in the left breast at 4 o'clock middle depth 8 cm from the nipple. This abnormality is decreased in size. There is an associated biopsy clip. There also is a 1.3 cm x 1.2 cm x 0.9 cm mass (previously 1.6 cm x 1.5 cm x 1.1 cm on 06/15/2021) in the left breast at 10 o'clock middle depth 17 cm from the nipple. This abnormality is decreased in size. There is an associated biopsy clip. IMPRESSION: KNOWN BIOPSY PROVEN MALIGNANCY Left breast at 4 o'clock middle depth mass measuring 1.1 cm is decreased in size. Biopsy positive for malignancy. Left breast at 10 o'clock middle depth mass measuring 1.3 cm is decreased in size. Biopsy positive for malignancy. Clinical follow-up recommended. Exam findings were conveyed to the patient. This exam was interpreted at Station ID: [id number]. Electronically Signed By: Elmer Melendez M.D. [facility] [place]/:03/16/2022 14:44:59 letter sent: Clinical Evaluation Ultrasound BI-RADS: 6 Known biopsy proven malignancy
== END ==
PROVIDERS: Referring Provider Internal Medicine Hematology & Oncology; Visit Provider Internal Medicine Hematology & Oncology
DX: R92.8 Other abnormal and inconclusive findings on diagnostic imaging of breast (principal); C50.212 Malignant neoplasm of upper-inner quadrant of left female breast; C50.512 Malignant neoplasm of lower-outer quadrant of left female breast
CPT/HCPCS: 76642; 77065; G0279

== ENCOUNTER → 2022-03-19 13:54 | Outpatient (CLI) | payer MEDICARE, OTHER, MEDICAID, SELFPAY ==
--- NOTE | 2022-03-19 14:01 | DI.MRI.S_ITS ---
PROCEDURE: MR CERVICAL SPINE WO CON INDICATIONS: Cervicalgia TECHNIQUE: Noncontrast sagittal T1 spin echo and T2 fast spin echo, sagittal STIR, foraminal oblique sagittal T2 fast spin echo, and axial gradient echo or T2 fast spin echo through the cervical spine. COMPARISON: None. FINDINGS: Image quality: Excellent. Alignment and Curvature: There is loss of normal cervical lordosis. 2 mm of anterolisthesis of C4 on C5. 5 mm of anterolisthesis of C5 on C6. 2 mm of retrolisthesis of C7 on T1. Bone Marrow: Marrow demonstrates normal overall signal. There is moderate reactive signal within the endplates adjacent to the C6-C7 and C7-T1 intervertebral discs. Mild reactive signal within the endplates adjacent to the remaining cervical and upper thoracic intervertebral discs. Spinal Cord: Visualized spinal cord has normal size and signal. No cerebellar tonsillar herniation. Paraspinous Soft Tissues: No paravertebral masses. Prevertebral soft tissues are normal in thickness. C2-C3: Moderate disc desiccation. Mild disc height loss and diffuse disc bulge. Mild canal stenosis. Moderate left foraminal stenosis. Mild right foraminal stenosis. C3-C4: Mild disc height loss. Moderate disc desiccation. Mild diffuse disc bulge with superimposed left posterolateral and paracentral protrusion/osteophyte. Mild facet and uncovertebral hypertrophy bilaterally. Moderate canal stenosis. Moderate left and mild right foraminal stenosis. C4-C5: Moderate disc height loss and desiccation. Mild diffuse disc bulge. Moderate left and mild right facet and uncovertebral hypertrophy. Mild canal stenosis. Severe left and mild right foraminal stenosis. C5-C6: Moderate disc height loss and desiccation. Mild diffuse disc bulge. Mild facet and uncovertebral hypertrophy bilaterally. Mild canal stenosis. Moderate bilateral foraminal stenosis. C6-C7: Moderate disc height loss and desiccation. Mild diffuse disc bulge. Mild facet and uncovertebral hypertrophy bilaterally. Mild canal stenosis. Mild bilateral foraminal stenosis. C7-T1: Moderate disc height loss and desiccation. Moderate diffuse disc bulge with superimposed right far lateral protrusion/osteophyte. Moderate facet and uncovertebral hypertrophy bilaterally. Moderate canal stenosis. Severe right greater than left foraminal stenosis with right greater than left C8 nerve root compression. IMPRESSION: 1. Multilevel degenerative disc and facet disease, as well as uncovertebral hypertrophy. 2. Multilevel canal stenoses, worst at C3-C4 and C7-T1 where there are moderate canal stenosis. 3. Multilevel foraminal stenoses, worst at C7-T1 where there is associated intraforaminal nerve root compression. Recommend correlation with clinical symptoms to ascertain relevance of this finding. Dictated by: Teresa Gooden M.D. on 03/19/2022 at 15:04 Approved by: Teresa Gooden M.D. on 03/19/2022 at 16:48
[2022-03-22 12:14] LABS: Acetylcholine Receptor Bind AB 0.03 nmol/L (0.00-0.24)
[2022-03-25 22:36] LABS: MuSK Antibodies <1.0 U/mL (.)
== END ==
PROVIDERS: PCP Internal Medicine Critical Care Medicine; Referring Provider Physical Medicine & Rehabilitation Pain Medicine; Visit Provider Physical Medicine & Rehabilitation Pain Medicine
DX: M50.31 Other cervical disc degeneration, high cervical region (principal); M48.02 Spinal stenosis, cervical region; M48.03 Spinal stenosis, cervicothoracic region; G70.01 Myasthenia gravis with (acute) exacerbation; G25.0 Essential tremor; G62.9 Polyneuropathy, unspecified
CPT/HCPCS: 36415; 72141; 83519; 86255

== ENCOUNTER → 2023-01-01 13:29 | Outpatient (CLI) | payer MEDICARE, OTHER, MEDICAID, SELFPAY ==
--- NOTE | 2023-01-01 | DI.US.S_ITS ---
LIMITED ULTRASOUND OF LEFT BREAST: 01/01/2023 CLINICAL: Known left breast cancer. Comparison is made to exams dated: 01/01/2023 mammogram, 03/16/2022 ultrasound, 03/16/2022 mammogram - [facility], 06/23/2021 ultrasound biopsy, 06/23/2021 ultrasound biopsy, and 06/23/2021 mammogram - [facility]. Color flow and real-time ultrasound of the left breast 4 o'clock and 10 o'clock regions were performed. [place] scale images of the real-time examination were reviewed. New hypoechoic shadowing mass at the 4 o'clock position in the periareolar region measuring 7 mm, highly suspicious for new carcinoma. Vcmoaz-wkvj-rfhq mass at the 4 o'clock position 8 cm from the nipple measures involution of a predominantly cystic portion of the mass seen previously. The taller than wide solid vascular portion is unchanged. Hypoechoic taller high on the wide mass at the 10 o'clock position 17 cm from the nipple with angular and spiculated margins is not significantly changed in size. IMPRESSION: KNOWN BIOPSY PROVEN MALIGNANCY Essentially stable appearance of 2 previously seen masses in the left breast, both hypoechoic and shadowing with angular margins, consistent with known biopsy-proven carcinoma. New shadowing hypoechoic lesion with angular margins in the left breast at 4:00 a.m. Position highly suspicious for new carcinoma. Continued clinical management recommended. If the results of biopsy would impact management, then ultrasound guided biopsy of the new mass could be performed. This exam was interpreted at Station ID: [id number]. Electronically Signed By: Collin Ramirez M.D. jr/:01/02/2023 16:05:00 letter sent: Clinical Evaluation Ultrasound BI-RADS: 6 Known biopsy proven malignancy
--- NOTE | 2023-01-01 | DI.MG.S_ITS ---
BILATERAL DIGITAL DIAGNOSTIC MAMMOGRAM 3D/2D: 01/01/2023 CLINICAL: Breast cancer. Comparison is made to exams dated: 03/16/2022 mammogram - [facility], 06/23/2021 mammogram, 06/15/2021 mammogram, and 06/01/2021 mammogram - [facility]. There are scattered areas of fibroglandular density in both breasts (category b / 25%-50% glandular tissue). There is a 1.2 cm mass in the left breast at 4 o'clock middle depth. This is not significantly changed. There also is a 0.9 cm mass in the left breast at 11 o'clock middle depth. This is not significantly changed. IMPRESSION: KNOWN BIOPSY PROVEN MALIGNANCY No change in either left breast mass, both consistent with biopsy-proven carcinomas. Ultrasound was ordered and will be performed now. This exam was interpreted at Station ID: [id number]. NOTE: For mammograms, a report in lay terms will be sent to the patient. Approximately 15% of breast malignancies will not be visualized mammographically. In the management of a palpable breast mass, a negative mammogram must not discourage biopsy of a clinically suspicious lesion. Electronically Signed By: Collin Ramirez M.D. jr/:01/02/2023 16:03:54 letter sent: Clinical Evaluation ACR BI-RADS Category 6: Known biopsy proven malignancy [id number]
== END ==
PROVIDERS: PCP Internal Medicine Critical Care Medicine; Referring Provider Internal Medicine Hematology & Oncology; Visit Provider Internal Medicine Hematology & Oncology
DX: C50.212 Malignant neoplasm of upper-inner quadrant of left female breast (principal); C50.211 Malignant neoplasm of upper-inner quadrant of right female breast; C50.512 Malignant neoplasm of lower-outer quadrant of left female breast
CPT/HCPCS: 76642; 77066; G0279

== ENCOUNTER → 2023-02-09 12:32 | Outpatient (ROUT) | payer MEDICARE, OTHER, MEDICAID, SELFPAY ==
[2023-02-09 12:40] LABS: Appearance Urine UA CLEAR; Bilirubin Urine UA NEGATIVE (NEGATIVE); Color Urine UA YELLOW; Glucose Urine UA NEGATIVE (Negative); Ketones Urine UA NEGATIVE (NEGATIVE); Leukocyte Esterase Urine UA NEGATIVE (NEGATIVE); Nitrite Urine UA NEGATIVE (Negative); Occult Blood Urine UA NEGATIVE (Negative); Protein Urine UA NEGATIVE (Negative); Specific Gravity Urine UA <=1.005 (1.000-1.035); Urobilinogen Urine UA 0.2 E.U./dL (0.2)
[2023-02-09 12:41] LABS: pH Urine UA 6.5 (4.5-8.0)
[2023-02-09 12:47] LABS: Bacteria Urine None Seen; Culture Indicated Urine Cult Not Indicated; RBC Urine None Seen (0-5/HPF); Urine Comments Microscopic Normal; WBC Urine None Seen (0-5/HPF)
== END ==
PROVIDERS: PCP Internal Medicine Critical Care Medicine; Visit Provider Internal Medicine
DX: Z13.9 Encounter for screening, unspecified (principal)
CPT/HCPCS: 81001

== ENCOUNTER 2023-07-08 15:40 | Emergency (ER) | payer MEDICARE, OTHER, MEDICAID, SELFPAY ==
[2023-07-08] VITALS (12 sets, daily range): BP systolic 171–196; BP diastolic 74–91; PULSE 75–80; RESP 12–19; TEMP 36.7; O2SAT 95–98
--- NOTE | 2023-07-08 15:55 | DI.RAD.S_ITS ---
PROCEDURE: XR CHEST 1V INDICATIONS: GEN WEAKNESS TECHNIQUE: One view of the chest was acquired. COMPARISON: [facility], , CHEST 2 VIEW, 03/12/2011, 14:07. FINDINGS: Surgical changes and devices: None. Lungs and pleura: Bilateral suprahilar infiltrates. No pleural effusions or pneumothorax. Mediastinum: Mediastinal contours appear normal. Heart size is normal. Bones and chest wall: No suspicious bony lesions. Overlying soft tissues appear unremarkable. IMPRESSION: Bilateral suprahilar infiltrates suspicious for pneumonia. Dictated by: Lavinia Oleary M.D. on 07/08/2023 at 16:55 Approved by: Lavinia Oleary M.D. on 07/08/2023 at 16:57
--- NOTE | 2023-07-08 15:55 | DI.CT.S_ITS ---
PROCEDURE: CT HEAD/BRAIN WO CON INDICATIONS: SPRINGER, BLURRED VISION TECHNIQUE: Noncontrast 4.5 mm thick angled axial sections acquired from the foramen magnum to the vertex, with coronal and sagittal reformats. For radiation dose reduction, the following was used: automated exposure control, adjustment of mA and/or kV according to patient size. COMPARISON: [facility], CT, CT HEAD/BRAIN WO CON, 04/17/2018, 18:35. [facility], CT, CT HEAD/BRAIN WO CON, 04/18/2018, 0:33. FINDINGS: Image quality: This examination is limited by involuntary motion artifact. Images are repeated, with some improvement. CSF spaces: Basal cisterns are patent. No extra-axial fluid collections. The ventricles are symmetric in size and shape. Brain: No intracranial bleeds or masses. There is cerebral volume loss for age, with resultant ventricular and sulcal prominence. There are periventricular and deep white matter chronic small vessel ischemic changes. There is intracranial internal carotid artery atherosclerosis. Skull and face: Calvarium and visualized facial bones appear intact, without suspicious lesions. Sinuses: Moderate mucosal thickening is seen within the left sphenoid sinus, with a mucous retention cyst within the right sphenoid sinus. The visualized paranasal sinuses are otherwise clear. No abnormal fluid is seen within the mastoid air cells. IMPRESSION: No acute intracranial hemorrhage is seen. No acute intracranial process is seen. Additional findings: Focal left sphenoid sinus disease Dictated by: Skip Yang M.D. on 07/08/2023 at 15:17 Approved by: Skip Yang M.D. on 07/08/2023 at 15:19
--- NOTE | 2023-07-08 15:58 | ED_ITS ---
HPI - Weakness General Chief complaint: Weakness Stated complaint: weakness Time Seen by Provider: 07/08/23 15:50 History of Present Illness HPI Narrative: 83-year-old female with history of breast cancer on oral chemotherapy pill, hypertension, hyperlipidemia, CKD stage 4 (not on dialysis) presents by EMS from physical therapy for generalized weakness. Patient was on a bicycle performing physical therapy exercises when she felt ?a pop? in her head with head pain. She also noted generalized weakness and EMS was called for evaluation. On arrival patient reports pain in her head but denies other complaints. Patient has chronic weakness in her L arm from arthritis, this is at baseline per patient. Related Data Home Medications Medication Instructions Recorded Confirmed fluoxetine 10 mg capsule (Prozac) 10 mg PO QPM ##0 05/06/10 [GLUCOSAMINE/CHONDROI] PO BID ##0 11/27/17 acetaminophen 500 mg tablet 500 mg PO PRN PRN ##0 11/27/17 calcium carbonate 500 mg-vitamin PO QDAY ##0 11/27/17 D3 5 mcg (200 unit) tablet (Oyster Shell Calcium-Vitamin D3) cyanocobalamin (vitamin B-12) 1,000 mcg PO QDAY ##0 11/27/17 1,000 mcg tablet,extended release docusate sodium 100 mg capsule 100 mg PO BID ##0 11/27/17 levothyroxine 112 mcg tablet 0.112 mg PO QAM ##0 11/27/17 loratadine 10 mg tablet 10 mg PO QDAY ##0 11/27/17 multivitamin (Multiple Vitamins 1 tab PO QDAY ##0 11/27/17 tablet) primidone 250 mg tablet PO SEE INSTRUCTIONS ##0 11/27/17 psyllium husk 0.52 gram capsule 0.52 gm PO QID ##0 11/27/17 (Metamucil) sennosides 8.6 mg-docusate sodium 1 tab PO BIDP PRN ##0 11/27/17 50 mg tablet (Senna with Docusate Sodium) triamcinolone acetonide 55 mcg ##0 11/27/17 nasal spray aerosol (Nasacort) vit C,V-Dj-uhwngq-lutein-zeaxan 60 1 cap PO QPM ##0 11/27/17 mg-13.5 mg-15 mg-2 mg-6 mg capsule (Ocuvite Lutein and Zeaxanthin) diphenhydramine HCl 25 mg tablet 25 mg PO QPM ##0 12/02/17 (Benadryl Allergy) Previous Rx's Medication Instructions Recorded carvedilol 25 mg tablet (Coreg) 25 mg PO BID 30 days #0 tabs 11/29/17 gabapentin 300 mg capsule 300 mg PO HS 30 days #0 caps 11/29/17 (Neurontin) prednisone 10 mg tablet 10 mg PO AMCC #20 tabs 11/29/17 sulfamethoxazole 800 1 tab PO Q12H #20 tabs 07/08/23 mg-trimethoprim 160 mg tablet (Bactrim DS) Allergies Allergy/AdvReac Type Severity Reaction Status Date / Time ampicillin [AMPICILLIN] Allergy Unknown Swelling Verified 07/08/23 18:18 of Lip/Tongue/Throat adhesive tape Allergy Hives Verified 07/08/23 18:12 latex Allergy Hives Verified 07/08/23 18:12 lactose AdvReac Diarrhea Verified 07/08/23 18:12 NSAIDS (Non-Steroidal AdvReac Verified 07/08/23 18:12 Anti-Inflamma Review of Systems Review of Systems Narrative: CONSTITUTIONAL- Denies: fever, chills, fatigue HEENT- Denies: sore throat, nosebleed, vision changes RESPIRATORY- Denies: shortness of breath, cough, wheezing CARDIAC- Denies: chest pain, edema, orthopnea GI- Denies: abdominal pain, nausea, vomiting, constipation, diarrhea - Denies: frequency, dysuria, hematuria, flank pain MSK- Denies: extremity pain, extremity swelling, joint pain, joint swelling SKIN- Denies: rash, itching, burn, swelling NEUROLOGICAL-reports: Headache, generalized weakness Denies: numbness, dizziness PSYCHIATRIC- Denies: anxiety, depression, suicidal ideation, homicidal ideation Patient History Social History Smoking Status: Never smoker Smoking Status: Never smoker alcohol intake frequency: holidays/special occasions only Substance Use Type: does not use Exam Initial Vital Signs Initial Vital Signs: Vital Signs Blood Pressure 185/89 H 07/08/23 15:46 Const: awake, alert, debilitated, frail, morbidly obese, appears chronically unwell Eyes: PERRL, EOMI, conjunctiva normal ENT: Atraumatic, mucous membranes moist Cardiac: regular rate, regular rhythm RESP: unlabored, clear bilaterally, no wheezing GI: Atraumatic, soft, nontender, nondistended, no rebound, no guarding MSK: Atraumatic, full range of motion, pulses equal Skin: Warm, Dry, intact, no rashes Neuro: AO x3, CN II-XII grossly intact, moves all extremities, LUE weakness (chronic, at baseline per patient) Psych: appropriate for given condition Course Orders Ordered: Discontinued Medications Ceftriaxone Sodium 2,000 mg/ (Sodium Chloride) 100 mls @ 200 mls/hr IV NOW ONE Stop: 07/08/23 17:41 Last Infusion: 07/08/23 18:58 Dose: 0 mls/hr Documented By: Admin: 07/08/23 18:18 Dose: 200 mls/hr Documented By: ROZ Vital Signs Vital signs: Vital Signs - 8 hr 07/08/23 15:57 07/08/23 15:46 07/08/23 15:47 Temperature 98.1 F Pulse Rate 79 78 Respiratory Rate 16 Blood Pressure 191/74 H 185/89 H Pulse Oximetry 98 98 Oxygen Delivery Method Room Air 07/08/23 15:51 07/08/23 15:51 07/08/23 16:00 Temperature Pulse Rate 76 Respiratory Rate 12 Blood Pressure 174/86 H 191/84 H Pulse Oximetry 97 Oxygen Delivery Method 07/08/23 16:00 07/08/23 16:30 07/08/23 16:30 Temperature Pulse Rate 79 75 Respiratory Rate 19 13 Blood Pressure 196/91 H Pulse Oximetry 97 96 Oxygen Delivery Method 07/08/23 17:00 07/08/23 17:00 07/08/23 17:35 Temperature Pulse Rate 79 77 Respiratory Rate 15 Blood Pressure 176/83 H Pulse Oximetry 95 98 Oxygen Delivery Method 07/08/23 17:59 07/08/23 17:59 07/08/23 18:00 Temperature Pulse Rate 79 Respiratory Rate 13 Blood Pressure 171/79 H 185/81 H Pulse Oximetry 98 Oxygen Delivery Method 07/08/23 18:00 07/08/23 18:30 07/08/23 18:30 Temperature Pulse Rate 80 78 Respiratory Rate 16 15 Blood Pressure 177/84 H Pulse Oximetry 98 98 Oxygen Delivery Method 07/08/23 19:00 07/08/23 19:00 Temperature Pulse Rate 79 Respiratory Rate 15 Blood Pressure 173/79 H Pulse Oximetry 98 Oxygen Delivery Method MDM - Weakness Differential Diagnosis Differential diagnosis: Likely anemia, hypoglycemia and dehydration Lab Data 07/08/23 16:25 07/08/23 16:25 Labs: Lab Results 07/08/23 07/08/23 07/08/23 Range/Units 16:25 16:25 16:25 WBC 5.0 (4.5-11.0) X10^3/uL RBC 3.11 L (4.0-5.2) X10^6/uL Hgb 10.8 L (12.0-16.0) g/dL Hct 32.1 L (36-46) % MCV 103.1 H (80-100) fL MCH 34.7 H (26-34) PG MCHC 33.6 (30-36) % RDW 13.1 (11.6-14.8) % Plt Count 188 (150-400) X10^3/uL Neut % (Auto) 71.7 (50-75) % Lymph % (Auto) 14.4 L (25-40) % [place] % (Auto) 9.2 (3-14) % Eos % (Auto) 3.6 (2-4) % Baso % (Auto) 1.1 (0-2) % Neut # (Auto) 3600 (8840-1137) /uL Lymph # (Auto) 700 L (3648-4746) /uL [place] # (Auto) 500 (0-900) /uL Eos # (Auto) 200 (0-450) /uL Baso # (Auto) 100 (0-100) /uL Sodium 138 (137-145) mmol/L Potassium 4.4 (3.4-5.1) mmol/L Chloride 107 (98-107) mmol/L Carbon Dioxide 25 (22-32) mmol/L BUN 54 H (7-17) mg/dL Creatinine 2.13 H (0.52-1.04) mg/dL Estimated GFR 22 L (>60) mL/min BUN/Creatinine Ratio 25.4 H (6-22) Glucose 91 (80-110) mg/dL Calcium 8.6 (8.4-10.2) mg/dL Total Bilirubin 0.1 L (0.2-1.3) mg/dL AST 29 (14-36) IU/L ALT 30 (<35) IU/L Alkaline Phosphatase 132 H (38-126) U/L Ammonia < 9 L (9-30) umol/L Total Creatine Kinase (30-135) U/L Troponin I (0.01-0.034) ng/mL Total Protein 6.9 (6.3-8.2) g/dL Albumin 3.5 (3.5-5.0) g/dL Globulin 3.4 (1.7-4.1) g/dL Albumin/Globulin Ratio 1.0 (1.0-2.8) Urine Color Urine Appearance Urine pH (4.5-8.0) Ur Specific [place] (1.000-1.035) Urine Protein (Negative) Urine Glucose (UA) (Negative) g/dL Urine Ketones (NEGATIVE) Urine Occult Blood (Negative) Urine Nitrate (Negative) Urine Bilirubin (NEGATIVE) Urine Urobilinogen (0.2) E.U./dL Ur Leukocyte Esterase (NEGATIVE) Urine RBC (0-5/HPF) Urine WBC (0-5/HPF) Ur Squamous Epith Cells (0-5/HPF) Urine Bacteria (None) Ur Culture Indicated? 07/08/23 07/08/23 Range/Units 16:25 17:15 WBC (4.5-11.0) X10^3/uL RBC (4.0-5.2) X10^6/uL Hgb (12.0-16.0) g/dL Hct (36-46) % MCV (80-100) fL MCH (26-34) PG MCHC (30-36) % RDW (11.6-14.8) % Plt Count (150-400) X10^3/uL Neut % (Auto) (50-75) % Lymph % (Auto) (25-40) % [place] % (Auto) (3-14) % Eos % (Auto) (2-4) % Baso % (Auto) (0-2) % Neut # (Auto) (1577-1368) /uL Lymph # (Auto) (9961-8477) /uL [place] # (Auto) (0-900) /uL Eos # (Auto) (0-450) /uL Baso # (Auto) (0-100) /uL Sodium (137-145) mmol/L Potassium (3.4-5.1) mmol/L Chloride (98-107) mmol/L Carbon Dioxide (22-32) mmol/L BUN (7-17) mg/dL Creatinine (0.52-1.04) mg/dL Estimated GFR (>60) mL/min BUN/Creatinine Ratio (6-22) Glucose (80-110) mg/dL Calcium (8.4-10.2) mg/dL Total Bilirubin (0.2-1.3) mg/dL AST (14-36) IU/L ALT (<35) IU/L Alkaline Phosphatase (38-126) U/L Ammonia (9-30) umol/L Total Creatine Kinase 27 L (30-135) U/L Troponin I < 0.012 (0.01-0.034) ng/mL Total Protein (6.3-8.2) g/dL Albumin (3.5-5.0) g/dL Globulin (1.7-4.1) g/dL Albumin/Globulin Ratio (1.0-2.8) Urine Color Yellow Urine Appearance Cloudy Urine pH 7.0 (4.5-8.0) Ur Specific [place] 1.010 (1.000-1.035) Urine Protein Negative (Negative) Urine Glucose (UA) Negative (Negative) g/dL Urine Ketones Negative (NEGATIVE) Urine Occult Blood 1+ H (Negative) Urine Nitrate Positive H (Negative) Urine Bilirubin Negative (NEGATIVE) Urine Urobilinogen 0.2 (0.2) E.U./dL Ur Leukocyte Esterase 3+ H (NEGATIVE) Urine RBC 1-5/hpf (0-5/HPF) Urine WBC >100/hpf H (0-5/HPF) Ur Squamous Epith Cells 0-1 /hpf (0-5/HPF) Urine Bacteria Moderate (10-30) H (None) Ur Culture Indicated? Specimen cultured MDM Narrative Medical decision making narrative: Chronically unwell appearing but not acutely toxic patient presenting for generalized weakness and headache after performing physical therapy exercises. Patient does have left upper extremity weakness compared to right upper extremity, however she is awake, alert, oriented, states that this is chronic and not her baseline. Labs and imaging to be obtained. Laboratory work is reviewed. Patient has elevated creatinine, she has known stage 4 kidney disease and is not on dialysis. Chest x-ray concerning for pos sible pneumonia, however CT of the chest shows no evidence of infectious process in the lungs. CT brain reviewed, no acute abnormalities identified. Patient does have quite significant urinary tract infection. Reported anaphylaxis to ampicillin, however tolerated IV Rocephin without difficulty. Discharged on course of antibiotics. Patient and daughter informed of all lab and imaging findings and are in agreement with plan. All questions answered at time of discharge. Discharge Plan Departure Patient Disposition: Home Clinical Impression: Generalized weakness, Urinary tract infection, Chronic renal disease, stage IV, senior living resident Instructions: DI for Urinary Tract Infection (UTI) Prescriptions: New sulfamethoxazole-trimethoprim [Bactrim DS] 800-160 mg tablet 1 tab PO Q12H Qty: 20 0RF No Action fluoxetine [Prozac] 10 MG capsule 10 mg PO QPM Qty: 0 levothyroxine 112 MCG tablet 0.112 mg PO QAM Qty: 0 primidone 250 MG tablet PO SEE INSTRUCTIONS Qty: 0 calcium carbonate-vitamin D3 [Oyster Shell Calcium-Vit D3] 500 mg(1,250mg) - 200 unit tablet PO QDAY Qty: 0 acetaminophen 500 MG tablet 500 mg PO PRN PRNQty: 0 loratadine 10 MG tablet 10 mg PO QDAY Qty: 0 triamcinolone acetonide [Nasacort] 55 MCG/PUFF aerosol,spray Qty: 0 [GLUCOSAMINE/CHONDROI] PO BID Qty: 0 cyanocobalamin (vitamin B-12) 1,000 MCG tablet extended release 1,000 mcg PO QDAY Qty: 0 multivitamin [Multiple Vitamins] 1 EACH tablet 1 tab PO QDAY Qty: 0 vit C,X-Xl-mhlyu-lutein-zeaxan [Ocuvite Lutein and Zeaxanthin] 1 EACH capsule 1 cap PO QPM Qty: 0 docusate sodium 100 MG capsule 100 mg PO BID Qty: 0 psyllium husk [Metamucil] 0.52 GM capsule 0.52 gm PO QID Qty: 0 sennosides-docusate sodium [Senna with Docusate Sodium] 8.6 MG/50 MG tablet 1 tab PO BIDP PRNQty: 0 carvedilol [Coreg] 25 MG tablet 25 mg PO BID 30 Days Qty: 0 0RF gabapentin [Neurontin] 300 MG capsule 300 mg PO HS 30 Days Qty: 0 0RF prednisone 10 MG tablet 10 mg PO AMCC Qty: 20 0RF diphenhydramine HCl [Benadryl Allergy] 25 MG tablet 25 mg PO QPM Qty: 0 Referrals: Fernandez Carson MD [Primary Care Provider] - Stand Alone Forms: Patient Portal/API
--- NOTE | 2023-07-08 16:02 | PC.NURSE ---
Patient left department with interactive video technician.
[2023-07-08 16:31] LABS: Add Manual Diff / Slide Review NO; Basophils Absolute Auto 100 /uL (0-100); Basophils Percent Auto 1.1 % (0-2); Eosinophils Absolute Auto 200 /uL (0-450); Eosinophils Percent Auto 3.6 % (2-4); Hematocrit 32.1 % (36-46); Hemoglobin 10.8 g/dL (12.0-16.0); Lymphocytes Absolute Auto 700 /uL (1100-4500); Lymphocytes Percent Auto 14.4 % (25-40); Mean Corpuscular HGB Conc 33.6 % (30-36); Mean Corpuscular Hemoglobin 34.7 PG (26-34); Mean Corpuscular Volume 103.1 fL (80-100); Monocytes Absolute Auto 500 /uL (0-900); Monocytes Percent Auto 9.2 % (3-14); Neutrophils Absolute Auto 3600 /uL (1500-7000); Neutrophils Percent Auto 71.7 % (50-75); Platelet Count 188 X10^3/uL (150-400); Red Blood Cell Count 3.11 X10^6/uL (4.0-5.2); Red Cell Distribution Width 13.1 % (11.6-14.8)
[2023-07-08 16:43] LABS: Ammonia (NH3) < 9 umol/L (9-30)
[2023-07-08 16:44] LABS: Alanine Aminotransferase 30 IU/L (<35); Albumin 3.5 g/dL (3.5-5.0); Alkaline Phosphatase 132 U/L (38-126); Aspartate Aminotransferase 29 IU/L (14-36); BUN Creatinine Ratio 25.4 (6-22); Bilirubin Total 0.1 mg/dL (0.2-1.3); Blood Urea Nitrogen 54 mg/dL (7-17); Calcium 8.6 mg/dL (8.4-10.2); Carbon Dioxide 25 mmol/L (22-32); Chloride 107 mmol/L (98-107); Estimated Glomerular Filt Rate 22 mL/min (>60); Globulin 3.4 g/dL (1.7-4.1); Glucose 91 mg/dL (80-110); HEMOLYSIS < 15 (0-50); Potassium 4.4 mmol/L (3.4-5.1); Sodium 138 mmol/L (137-145); Total Protein 6.9 g/dL (6.3-8.2)
[2023-07-08 16:46] LABS: Creatine Kinase 27 U/L (30-135)
[2023-07-08 16:59] LABS: Troponin I < 0.012 ng/mL (0.01-0.034)
--- NOTE | 2023-07-08 17:20 | DI.CT.S_ITS ---
PROCEDURE: CT CHEST WO CON INDICATIONS: abnormal CXR TECHNIQUE: Noncontrast 5 mm thick sections acquired from the pulmonary apices to the posterior costophrenic angles. 1 mm lung window, 5 mm thick coronal and sagittal and 7 mm axial MIP reformats were then acquired. For radiation dose reduction, the following was used: automated exposure control, adjustment of mA and/or kV according to patient size. COMPARISON: Outside Facility, RG, CT ABDOMEN W/WO CONTRAST, 10/03/2015, 12:13. [facility], CR, XR CHEST 1V, 07/08/2023, 16:00. FINDINGS: Image quality: Excellent. Lungs and pleura: Left hemidiaphragm elevation. There is a linear density in the left upper lobe compatible with discoid atelectasis. No focal consolidation. No pleural effusions or pneumothorax. Central and peripheral airways are patent and normal in caliber. Mediastinum: Heart size is normal. Severe coronary artery atherosclerosis. Trace pericardial effusion. No mediastinal adenopathy by size criteria. Thoracic aorta and central pulmonary arteries are normal in size. Esophagus is normal in caliber. Small hiatal hernia. Bones and chest wall: No suspicious bony lesions. Mild chronic compression fracture of T9. No axillary or supraclavicular adenopathy by size criteria. Thyroid gland is normal. Abdomen: There is a 2.3 cm left adrenal nodule with CT density 9.3 HU, compatible with an adrenal adenoma IMPRESSION: 1. Left hemidiaphragm elevation with discoid atelectasis in the left upper lobe. 2. No acute cardiopulmonary process. 3. Severe coronary artery atherosclerosis. 4. Left adrenal adenoma. 5. Mild chronic T9 compression fracture. Dictated by: Lavinia Oleary M.D. on 07/08/2023 at 18:20 Approved by: Lavinia Oleary M.D. on 07/08/2023 at 18:25
[2023-07-08 17:30] LABS: Appearance Urine UA CLOUDY; Bilirubin Urine UA NEGATIVE (NEGATIVE); Color Urine UA YELLOW; Glucose Urine UA NEGATIVE (Negative); Ketones Urine UA NEGATIVE (NEGATIVE); Leukocyte Esterase Urine UA 3+ (NEGATIVE); Nitrite Urine UA POSITIVE (Negative); Occult Blood Urine UA 1+ (Negative); Protein Urine UA NEGATIVE (Negative); Urobilinogen Urine UA 0.2 E.U./dL (0.2)
[2023-07-08 17:40] LABS: Bacteria Urine Moderate (10-30); Culture Indicated Urine Specimen Cultured; RBC Urine 1-5/HPF (0-5/HPF); Squamous Epithelial Cell Urine 0-1 /HPF (0-5/HPF); WBC Urine >100/HPF (0-5/HPF)
[2023-07-08] MEDS: cefTRIAXone 2,000 MG in SODIUM CHLORIDE 0.9% 100 ML 200 MG IV (18:18)
--- NOTE | 2023-07-08 19:14 | PC.NURSE ---
This RN gave report Court EMT from [facility]. This RN gave report to RETA Mcnally at [facility]. This RN gave both parties the phone number for this department for any further questions.
== END 2023-07-08 19:13 | disposition home or self-care (01) ==
PROVIDERS: Emergency Provider Emergency Medicine; PCP Internal Medicine Critical Care Medicine
DX: N39.0 Urinary tract infection, site not specified (principal); N18.4 Chronic kidney disease, stage 4 (severe); R53.1 Weakness; R51.9 Headache, unspecified; R42 Dizziness and giddiness
CPT/HCPCS: 36415; 51701; 70450; 71045; 71250; 80053; 81001; 82140; 82550; 84484; 85025; 87077; 87086; 87186; 96365; 99284; J0696

== ENCOUNTER → 2023-08-04 09:44 | Outpatient (ROUT) | payer MEDICARE, OTHER, MEDICAID, SELFPAY ==
[2023-08-04 09:51] LABS: Appearance Urine UA CLEAR; Bilirubin Urine UA NEGATIVE (NEGATIVE); Color Urine UA YELLOW; Glucose Urine UA NEGATIVE (Negative); Ketones Urine UA NEGATIVE (NEGATIVE); Leukocyte Esterase Urine UA TRACE (NEGATIVE); Nitrite Urine UA NEGATIVE (Negative); Occult Blood Urine UA NEGATIVE (Negative); Protein Urine UA NEGATIVE (Negative); Urobilinogen Urine UA 0.2 E.U./dL (0.2)
[2023-08-04 09:52] LABS: pH Urine UA 5.5 (4.5-8.0)
[2023-08-04 10:02] LABS: Amorphous Sediment Urine 1+; Bacteria Urine Occasional (0-1); RBC Urine None Seen (0-5/HPF); Squamous Epithelial Cell Urine 0-1 /HPF (0-5/HPF); Transitional Epi Cells Urine 0-1/HPF (0-5/HPF); WBC Urine 1-5/HPF (0-5/HPF)
== END ==
PROVIDERS: PCP Internal Medicine Critical Care Medicine; Visit Provider Internal Medicine
DX: F31.9 Bipolar disorder, unspecified (principal); E66.01 Morbid (severe) obesity due to excess calories; N17.9 Acute kidney failure, unspecified; N39.0 Urinary tract infection, site not specified; R26.2 Difficulty in walking, not elsewhere classified
CPT/HCPCS: 81001; 87077; 87086; 87186

== ENCOUNTER → 2023-08-08 16:16 | Outpatient (ROUT) | payer MEDICARE, OTHER, MEDICAID, SELFPAY ==
[2023-08-08 16:28] LABS: Appearance Urine UA CLEAR; Bilirubin Urine UA NEGATIVE (NEGATIVE); Color Urine UA YELLOW; Glucose Urine UA NEGATIVE (Negative); Ketones Urine UA NEGATIVE (NEGATIVE); Leukocyte Esterase Urine UA 1+ (NEGATIVE); Nitrite Urine UA NEGATIVE (Negative); Occult Blood Urine UA TRACE-INTACT (Negative); Protein Urine UA NEGATIVE (Negative); Specific Gravity Urine UA 1.015 (1.000-1.035); Urobilinogen Urine UA 0.2 E.U./dL (0.2)
[2023-08-08 16:54] LABS: pH Urine UA 5.5 (4.5-8.0)
[2023-08-08 16:56] LABS: Bacteria Urine Many (>30); Culture Indicated Urine Specimen Cultured; RBC Urine 1-5/HPF (0-5/HPF); Squamous Epithelial Cell Urine 0-1 /HPF (0-5/HPF); Transitional Epi Cells Urine 0-1/HPF (0-5/HPF); WBC Urine 10-30/HPF (0-5/HPF)
== END ==
PROVIDERS: PCP Internal Medicine Critical Care Medicine; Visit Provider Nurse Practitioner Family
DX: N39.0 Urinary tract infection, site not specified (principal)
CPT/HCPCS: 81001; 87086

== ENCOUNTER → 2023-08-16 21:39 | Outpatient (ROUT) | payer MEDICARE, OTHER, MEDICAID, SELFPAY ==
[2023-08-17 00:58] LABS: Appearance Urine UA CLEAR; Bilirubin Urine UA NEGATIVE (NEGATIVE); Color Urine UA YELLOW; Glucose Urine UA NEGATIVE (Negative); Ketones Urine UA NEGATIVE (NEGATIVE); Leukocyte Esterase Urine UA 2+ (NEGATIVE); Nitrite Urine UA NEGATIVE (Negative); Occult Blood Urine UA NEGATIVE (Negative); Protein Urine UA 1+ (Negative); Urobilinogen Urine UA 0.2 E.U./dL (0.2)
[2023-08-17 00:59] LABS: pH Urine UA 5.5 (4.5-8.0)
[2023-08-17 01:16] LABS: Bacteria Urine Occasional (0-1); RBC Urine None Seen (0-5/HPF); Squamous Epithelial Cell Urine None Seen (0-5/HPF); WBC Urine 10-30/HPF (0-5/HPF)
== END ==
PROVIDERS: PCP Internal Medicine Critical Care Medicine; Visit Provider Nurse Practitioner Family
DX: E66.01 Morbid (severe) obesity due to excess calories (principal); F31.9 Bipolar disorder, unspecified; N17.9 Acute kidney failure, unspecified; N39.0 Urinary tract infection, site not specified
CPT/HCPCS: 81001; 87086

== ENCOUNTER 2023-08-28 13:33 | Emergency (ER) | payer MEDICARE, OTHER, MEDICAID, SELFPAY ==
[2023-08-28] VITALS (12 sets, daily range): BP systolic 149–181; BP diastolic 70–99; PULSE 69–81; RESP 10–20; TEMP 36.4; O2SAT 95–98; BMI 40.1
--- NOTE | 2023-08-28 15:12 | DI.RAD.S_ITS ---
PROCEDURE: XR CHEST 1V INDICATIONS: GEN WEAKNESS TECHNIQUE: One view of the chest was acquired. COMPARISON: [facility], CR, XR CHEST 1V, 07/08/2023, 16:00. FINDINGS: Surgical changes and devices: None. Lungs and pleura: Lungs are clear. No pleural effusions or pneumothorax. Mediastinum: Mediastinal contours appear normal. Heart size is normal. Bones and chest wall: No suspicious bony lesions. Overlying soft tissues appear unremarkable. IMPRESSION: Portable chest within normal limits for age. Dictated by: Korin Perez M.D. on 08/28/2023 at 16:15 Approved by: Korin Perez M.D. on 08/28/2023 at 16:15
[2023-08-28] MEDS: SODIUM CHLORIDE 0.9% 1,000 ML 1000 ML IV (16:09)
--- NOTE | 2023-08-28 16:19 | ED.WEAKNESS ---
HPI - Weakness General Chief complaint: Weakness Stated complaint: Critical Labs Time Seen by Provider: 08/28/23 15:12 Source: patient Mode of arrival: Wheelchair History of Present Illness HPI Narrative: 83-year-old female presents from [facility] facility for abnormal labs. Patient was found to have an elevated calcium level and an elevated parathyroid hormone level. These lab results are not with the patient currently. EMS states that the patient was sent in for evaluation of calcium and ?endocrinology consult?. Patient states that she was previously feeling very poorly and noticed a lot of weight gain. She was started on Lasix and states that since then she is lost some weight and feels improved. Reports remote history of parathyroid problems, she had a single parathyroid gland removed several years ago. Related Data Home Medications Medication Instructions Recorded Confirmed fluoxetine 10 mg capsule (Prozac) 10 mg PO QPM ##0 05/06/10 [GLUCOSAMINE/CHONDROI] PO BID ##0 11/27/17 acetaminophen 500 mg tablet 500 mg PO PRN PRN ##0 11/27/17 calcium carbonate 500 mg-vitamin PO QDAY ##0 11/27/17 D3 5 mcg (200 unit) tablet (Oyster Shell Calcium-Vitamin D3) cyanocobalamin (vitamin B-12) 1,000 mcg PO QDAY ##0 11/27/17 1,000 mcg tablet,extended release docusate sodium 100 mg capsule 100 mg PO BID ##0 11/27/17 levothyroxine 112 mcg tablet 0.112 mg PO QAM ##0 11/27/17 loratadine 10 mg tablet 10 mg PO QDAY ##0 11/27/17 multivitamin (Multiple Vitamins 1 tab PO QDAY ##0 11/27/17 tablet) primidone 250 mg tablet PO SEE INSTRUCTIONS ##0 11/27/17 psyllium husk 0.52 gram capsule 0.52 gm PO QID ##0 11/27/17 (Metamucil) sennosides 8.6 mg-docusate sodium 1 tab PO BIDP PRN ##0 11/27/17 50 mg tablet (Senna with Docusate Sodium) triamcinolone acetonide 55 mcg ##0 11/27/17 nasal spray aerosol (Nasacort) vit C,V-Fy-kjwquu-lutein-zeaxan 60 1 cap PO QPM ##0 11/27/17 mg-13.5 mg-15 mg-2 mg-6 mg capsule (Ocuvite Lutein and Zeaxanthin) diphenhydramine HCl 25 mg tablet 25 mg PO QPM ##0 12/02/17 (Benadryl Allergy) Previous Rx's Medication Instructions Recorded carvedilol 25 mg tablet (Coreg) 25 mg PO BID 30 days #0 tabs 11/29/17 gabapentin 300 mg capsule 300 mg PO HS 30 days #0 caps 11/29/17 (Neurontin) prednisone 10 mg tablet 10 mg PO AMCC #20 tabs 11/29/17 sulfamethoxazole 800 1 tab PO Q12H #20 tabs 07/08/23 mg-trimethoprim 160 mg tablet (Bactrim DS) Allergies Allergy/AdvReac Type Severity Reaction Status Date / Time ampicillin [AMPICILLIN] Allergy Unknown Swelling Verified 08/28/23 14:26 of Lip/Tongue/Throat adhesive tape Allergy Hives Verified 08/28/23 14:26 latex Allergy Hives Verified 08/28/23 14:26 lactose AdvReac Diarrhea Verified 08/28/23 14:26 NSAIDS (Non-Steroidal AdvReac Verified 08/28/23 14:26 Anti-Inflamma Review of Systems Review of Systems Narrative: Negative except as noted above Patient History Social History Smoking Status: Never smoker Smoking Status: Never smoker alcohol intake frequency: holidays/special occasions only Substance Use Type: does not use Exam Initial Vital Signs Initial Vital Signs: Vital Signs Temperature 97.6 F 08/28/23 14:18 Pulse Rate 79 08/28/23 14:18 Respiratory Rate 20 08/28/23 14:18 Blood Pressure 161/92 H 08/28/23 14:18 Pulse Oximetry 98 08/28/23 14:18 Oxygen Delivery Method Room Air 08/28/23 14:18 Const: Awake, alert, no acute distress, frail, fatigued Eyes: PERRL, EOMI, conjunctiva normal ENT: Atraumatic, dentition normal, mucous membranes moist Cardiac: regular rate, regular rhythm RESP: unlabored, clear bilaterally, no wheezing GI: Atraumatic, soft, nontender, nondistended, no rebound, no guarding MSK: Atraumatic, full range of motion, pulses equal, trace pitting edema bilateral lwer extremities to knee Skin: Warm, Dry, intact, no rashes Neuro: AO x3, CN II-XII grossly intact, moves all extremities Course Course Course Narrative: Patient is sent in for elevated calcium and parathyroid hormone. Several weeks of generalized unwell feeling. Patient's laboratory work today is negative for hypercalcemia. She is chronic kidney disease, at baseline. She does not appear to be volume overloaded. Parathyroid hormone can be followed with Endocrinology or primary care. Patient discharged back to nursing facility in stable condition. Orders Ordered: Discontinued Medications Sodium Chloride (Normal Saline 0.9%) 1,000 mls @ 1,000 mls/hr IV BOLUS ONE Stop: 08/28/23 16:11 Last Infusion: 08/28/23 18:13 Dose: Infused Documented By: Admin: 08/28/23 16:09 Dose: 1,000 mls/hr Documented By: LASHELL Vital Signs Vital signs: Vital Signs - 8 hr 08/28/23 14:18 08/28/23 15:23 08/28/23 15:25 Temperature 97.6 F Pulse Rate 79 80 Respiratory Rate 20 13 Blood Pressure 161/92 H 149/71 H Pulse Oximetry 98 98 Oxygen Delivery Method Room Air 08/28/23 15:25 08/28/23 15:30 08/28/23 15:30 Temperature Pulse Rate 78 74 Respiratory Rate 11 L 13 Blood Pressure 170/77 H Pulse Oximetry 98 98 Oxygen Delivery Method 08/28/23 16:00 08/28/23 16:00 08/28/23 16:30 Temperature Pulse Rate 71 69 Respiratory Rate 14 10 L Blood Pressure 179/76 H Pulse Oximetry 96 96 Oxygen Delivery Method 08/28/23 16:31 08/28/23 16:31 08/28/23 17:00 Temperature Pulse Rate 70 Respiratory Rate 11 L Blood Pressure 179/84 H 181/79 H Pulse Oximetry 95 Oxygen Delivery Method 08/28/23 17:00 08/28/23 17:30 08/28/23 17:31 Temperature Pulse Rate 81 74 Respiratory Rate 16 12 Blood Pressure 159/70 H Pulse Oximetry 96 96 Oxygen Delivery Method 08/28/23 17:31 08/28/23 18:00 08/28/23 18:00 Temperature Pulse Rate 72 73 Respiratory Rate 18 17 Blood Pressure 173/76 H Pulse Oximetry 95 97 Oxygen Delivery Method 08/28/23 18:30 08/28/23 18:30 Temperature Pulse Rate 75 Respiratory Rate 14 Blood Pressure 175/99 H Pulse Oximetry 97 Oxygen Delivery Method MDM - Weakness Differential Diagnosis Differential diagnosis: Likely anemia, hypoglycemia and hypothyroidism Lab Data 08/28/23 16:50 08/28/23 16:50 Labs: Lab Results 08/28/23 08/28/23 Range/Units 16:50 17:09 WBC 3.8 L (4.5-11.0) X10^3/uL RBC 2.83 L (4.0-5.2) X10^6/uL Hgb 9.8 L (12.0-16.0) g/dL Hct 29.4 L (36-46) % MCV 103.6 H (80-100) fL MCH 34.7 H (26-34) PG MCHC 33.5 (30-36) % RDW 13.2 (11.6-14.8) % Plt Count 175 (150-400) X10^3/uL Neut % (Auto) 62.7 (50-75) % Lymph % (Auto) 17.5 L (25-40) % [place] % (Auto) 14.3 H (3-14) % Eos % (Auto) 4.3 H (2-4) % Baso % (Auto) 1.2 (0-2) % Neut # (Auto) 2400 (0227-4319) /uL Lymph # (Auto) 700 L (1991-6503) /uL [place] # (Auto) 500 (0-900) /uL Eos # (Auto) 200 (0-450) /uL Baso # (Auto) 0 (0-100) /uL Sodium 136 L (137-145) mmol/L Potassium 4.4 (3.4-5.1) mmol/L Chloride 109 H (98-107) mmol/L Carbon Dioxide 20 L (22-32) mmol/L BUN 40 H (7-17) mg/dL Creatinine 1.74 H (0.52-1.04) mg/dL Estimated GFR 29 L (>60) mL/min BUN/Creatinine Ratio 23.0 H (6-22) Glucose 101 (80-110) mg/dL Calcium 8.8 (8.4-10.2) mg/dL Total Bilirubin < 0.1 L (0.2-1.3) mg/dL AST 20 (14-36) IU/L ALT 17 (<35) IU/L Alkaline Phosphatase 110 (38-126) U/L Total Protein 6.1 L (6.3-8.2) g/dL Albumin 3.2 L (3.5-5.0) g/dL Globulin 2.9 (1.7-4.1) g/dL Albumin/Globulin Ratio 1.1 (1.0-2.8) Urine Color Yellow Urine Appearance Clear Urine pH 5.0 (4.5-8.0) Ur Specific [place] <=1.005 (1.000-1.035) Urine Protein Negative (Negative) Urine Glucose (UA) Negative (Negative) g/dL Urine Ketones Negative (NEGATIVE) Urine Occult Blood Negative (Negative) Urine Nitrate Negative (Negative) Urine Bilirubin Negative (NEGATIVE) Urine Urobilinogen 0.2 (0.2) E.U./dL Ur Leukocyte Esterase 1+ H (NEGATIVE) Urine RBC 0-1/hpf (0-5/HPF) Urine WBC 1-5/hpf (0-5/HPF) Ur Squamous Epith Cells 0-1 /hpf (0-5/HPF) Urine Bacteria Few (2-10) H (None) Ur Culture Indicated? Specimen cultured Discharge Plan Departure Patient Disposition: Home Clinical Impression: Edema Instructions: Calcium Activity Restrictions/Additional Instructions: YOUR CALCIUM HERE WAS NORMAL. CONTINUE TO TAKE ALL OF YOUR MEDICATIONS PRESCRIBED. FOLLOW UP WITH AN [employer]. Prescriptions: No Action fluoxetine [Prozac] 10 MG capsule 10 mg PO QPM Qty: 0 levothyroxine 112 MCG tablet 0.112 mg PO QAM Qty: 0 primidone 250 MG tablet PO SEE INSTRUCTIONS Qty: 0 calcium carbonate-vitamin D3 [Oyster Shell Calcium-Vit D3] 500 mg(1,250mg) -200 unit tablet PO QDAY Qty: 0 acetaminophen 500 MG tablet 500 mg PO PRN PRNQty: 0 loratadine 10 MG tablet 10 mg PO QDAY Qty: 0 triamcinolone acetonide [Nasacort] 55 MCG/PUFF aerosol,spray Qty: 0 [GLUCOSAMINE/CHONDROI] PO BID Qty: 0 cyanocobalamin (vitamin B-12) 1,000 MCG tablet extended release 1,000 mcg PO QDAY Qty: 0 multivitamin [Multiple Vitamins] 1 EACH tablet 1 tab PO QDAY Qty: 0 vit C,P-Ha-drrwh-lutein-zeaxan [Ocuvite Lutein and Zeaxanthin] 1 EACH capsule 1 cap PO QPM Qty: 0 docusate sodium 100 MG capsule 100 mg PO BID Qty: 0 psyllium husk [Metamucil] 0.52 GM capsule 0.52 gm PO QID Qty: 0 sennosides-docusate sodium [Senna with Docusate Sodium] 8.6 MG/50 MG tablet 1 tab PO BIDP PRNQty: 0 carvedilol [Coreg] 25 MG tablet 25 mg PO BID 30 Days Qty: 0 0RF gabapentin [Neurontin] 300 MG capsule 300 mg PO HS 30 Days Qty: 0 0RF prednisone 10 MG tablet 10 mg PO AMCC Qty: 20 0RF diphenhydramine HCl [Benadryl Allergy] 25 MG tablet 25 mg PO QPM Qty: 0 sulfamethoxazole-trimethoprim [Bactrim DS] 800-160 mg tablet 1 tab PO Q12H Qty: 20 0RF Referrals: Fernandez Carson MD [Primary Care Provider] - Stand Alone Forms: Patient Portal/API
[2023-08-28 16:59] LABS: Add Manual Diff / Slide Review NO; Basophils Absolute Auto 0 /uL (0-100); Basophils Percent Auto 1.2 % (0-2); Eosinophils Absolute Auto 200 /uL (0-450); Eosinophils Percent Auto 4.3 % (2-4); Hematocrit 29.4 % (36-46); Hemoglobin 9.8 g/dL (12.0-16.0); Lymphocytes Absolute Auto 700 /uL (1100-4500); Lymphocytes Percent Auto 17.5 % (25-40); Mean Corpuscular HGB Conc 33.5 % (30-36); Mean Corpuscular Hemoglobin 34.7 PG (26-34); Mean Corpuscular Volume 103.6 fL (80-100); Monocytes Absolute Auto 500 /uL (0-900); Monocytes Percent Auto 14.3 % (3-14); Neutrophils Absolute Auto 2400 /uL (1500-7000); Neutrophils Percent Auto 62.7 % (50-75); Platelet Count 175 X10^3/uL (150-400); Red Blood Cell Count 2.83 X10^6/uL (4.0-5.2); Red Cell Distribution Width 13.2 % (11.6-14.8); White Blood Cell Count 3.8 X10^3/uL (4.5-11.0)
[2023-08-28 17:18] LABS: Appearance Urine UA CLEAR; Bilirubin Urine UA NEGATIVE (NEGATIVE); Color Urine UA YELLOW; Glucose Urine UA NEGATIVE (Negative); Ketones Urine UA NEGATIVE (NEGATIVE); Leukocyte Esterase Urine UA 1+ (NEGATIVE); Nitrite Urine UA NEGATIVE (Negative); Occult Blood Urine UA NEGATIVE (Negative); Protein Urine UA NEGATIVE (Negative); Specific Gravity Urine UA <=1.005 (1.000-1.035); Urobilinogen Urine UA 0.2 E.U./dL (0.2)
[2023-08-28 17:20] LABS: Alanine Aminotransferase 17 IU/L (<35); Albumin 3.2 g/dL (3.5-5.0); Albumin Globulin Ratio 1.1 (1.0-2.8); Alkaline Phosphatase 110 U/L (38-126); Aspartate Aminotransferase 20 IU/L (14-36); Blood Urea Nitrogen 40 mg/dL (7-17); Calcium 8.8 mg/dL (8.4-10.2); Carbon Dioxide 20 mmol/L (22-32); Chloride 109 mmol/L (98-107); Estimated Glomerular Filt Rate 29 mL/min (>60); Globulin 2.9 g/dL (1.7-4.1); Glucose 101 mg/dL (80-110); HEMOLYSIS < 15 (0-50); Potassium 4.4 mmol/L (3.4-5.1); Sodium 136 mmol/L (137-145); Total Protein 6.1 g/dL (6.3-8.2)
[2023-08-28 17:21] LABS: Bilirubin Total < 0.1 mg/dL (0.2-1.3)
[2023-08-28 17:31] LABS: Bacteria Urine Few (2-10); Culture Indicated Urine Specimen Cultured; RBC Urine 0-1/HPF (0-5/HPF); Squamous Epithelial Cell Urine 0-1 /HPF (0-5/HPF); WBC Urine 1-5/HPF (0-5/HPF)
== END 2023-08-28 18:59 | disposition home or self-care (01) ==
PROVIDERS: Emergency Provider Emergency Medicine; PCP Internal Medicine Critical Care Medicine
DX: R60.9 Edema, unspecified (principal); R79.89 Other specified abnormal findings of blood chemistry
CPT/HCPCS: 71045; 80053; 81001; 85025; 87086; 96360; 96361; 99284

== ENCOUNTER → 2023-09-03 12:28 | Outpatient (CLI) | payer MEDICARE, OTHER, MEDICAID, SELFPAY ==
--- NOTE | 2023-09-03 | DI.US.S_ITS ---
LIMITED ULTRASOUND OF LEFT BREAST: 09/03/2023 CLINICAL: Patient returns today to evaluate a focal asymmetry in the left breast. Comparison is made to exams dated: 01/01/2023 ultrasound, 01/01/2023 mammogram, 03/16/2022 ultrasound, 03/16/2022 mammogram - [facility], 06/23/2021 ultrasound biopsy, and 06/23/2021 ultrasound biopsy - [facility]. Color flow and continuous wave Doppler ultrasound of the left breast 7 o'clock region were performed. Patient with a known history of breast cancer in the 4:00 position 8 cm from the nipple and 10:00 position 17 cm from the nipple both of which are biopsy-proven. A new 4:00 retroareolar lesion discovered on 12/2022 for which a biopsy was recommended but not yet performed. In the 7:00 retroareolar position (previously labeled as 4:00 position) a hypoechoic mass with rim calcifications and heavy shadowing is seen measuring 1.1 x 0.9 cm, similar to the prior study when it measured 1.0 x 0.7 cm. Correlating this with prior mammogram, it is possible that this corresponds to a large calcification and not the previously described mass, especially given the degree of shadowing present. Given the multitude of findings in the left breast mammogram would be very helpful to better evaluate the left breast overall. No axillary adenopathy on the left. IMPRESSION: KNOWN BIOPSY PROVEN MALIGNANCY Stable left retroareolar mass which is questionably related to a calcification seen on mammogram. Recommend left mammogram for comparison to the prior mammogram in December. This has been scheduled for September 17. This exam was interpreted at Station ID: [id number]. Electronically Signed By: Lasha Burrell M.D. acr/:09/03/2023 15:06:11 Entry: - 09/06/2023 10:56:11 letter sent: Additional Imaging Needed Ultrasound BI-RADS: 6 Known biopsy proven malignancy
== END ==
PROVIDERS: PCP Internal Medicine Critical Care Medicine; Referring Provider Internal Medicine Hematology & Oncology; Visit Provider Internal Medicine Hematology & Oncology
DX: C50.512 Malignant neoplasm of lower-outer quadrant of left female breast (principal); C50.212 Malignant neoplasm of upper-inner quadrant of left female breast; N63.42 Unspecified lump in left breast, subareolar; Z17.0 Estrogen receptor positive status [ER+]
CPT/HCPCS: 76642

== ENCOUNTER → 2023-09-16 10:51 | Outpatient (CLI) | payer MEDICARE, OTHER, MEDICAID, SELFPAY ==
--- NOTE | 2023-09-16 | DI.US.S_ITS ---
PROCEDURE: US ABDOMEN LIMITED INDICATIONS: HX OF ULCERS AND HERNIA W/INCREASING PAIN TECHNIQUE: Real-time focused scanning was performed of the abdomen, with image documentation. COMPARISON: Outside Facility, RG, CT ABDOMEN W/WO CONTRAST, 10/03/2015, 12:13. FINDINGS: Ultrasound was performed in the areas of interest with Valsalva. In the right lower quadrant, there appears to be a hernia containing containing bowel during Valsalva. The hernia neck measures 2.8 cm. No hernia is seen in the left lower quadrant. IMPRESSION: 1. Suspect a ventral hernia in the right lower quadrant. 2. No hernia is identified in the left lower quadrant. If clinically indicated, consider CT for further evaluation. Dictated by: Lavinia Oleary M.D. on 09/16/2023 at 16:36 Approved by: Lavinia Oleary M.D. on 09/17/2023 at 8:21
== END ==
PROVIDERS: Family Provider Registered Nurse; PCP Internal Medicine Critical Care Medicine; Referring Provider Registered Nurse; Visit Provider Registered Nurse
DX: K46.0 Unspecified abdominal hernia with obstruction, without gangrene (principal)
CPT/HCPCS: 76705

== ENCOUNTER → 2023-09-17 11:44 | Outpatient (CLI) | payer MEDICARE, OTHER, MEDICAID, SELFPAY ==
--- NOTE | 2023-09-17 | DI.MG.S_ITS ---
UNILATERAL LEFT DIGITAL DIAGNOSTIC MAMMOGRAM 3D/2D: 09/17/2023 CLINICAL: Stage breast cancer. No prior exams were available for comparison. There are scattered areas of fibroglandular density in the left breast (category b / 25%-50% glandular tissue). There is a stable 0.9 cm mass with a spiculated margin in the left breast at 11 o'clock posterior depth 13.8 cm from the nipple. There also is a 0.6 cm mass with a spiculated margin in the left breast at 4 o'clock middle depth 11 cm from the nipple. IMPRESSION: KNOWN BIOPSY PROVEN MALIGNANCY The stable 0.9 cm mass in the left breast at 11 o'clock posterior depth is a known biopsy positive for malignancy. The 0.6 cm mass in the left breast at 4 o'clock middle depth is a known biopsy positive for malignancy. A 1 year follow up mammogram is recommended. This exam was interpreted at Station ID: [id number]. NOTE: For mammograms, a report in lay terms will be sent to the patient. Approximately 15% of breast malignancies will not be visualized mammographically. In the management of a palpable breast mass, a negative mammogram must not discourage biopsy of a clinically suspicious lesion. Electronically Signed By: Lasha Burrell M.D. acr/:09/17/2023 12:36:32 Entry: - 09/18/2023 10:36:37 letter sent: Clinical Evaluation ACR BI-RADS Category 6: Known biopsy proven malignancy [id number]
[2023-09-17 15:56] LABS: Appearance Urine UA SL CLOUDY; Bilirubin Urine UA NEGATIVE (NEGATIVE); Color Urine UA YELLOW; Glucose Urine UA NEGATIVE (Negative); Ketones Urine UA NEGATIVE (NEGATIVE); Leukocyte Esterase Urine UA 3+ (NEGATIVE); Nitrite Urine UA POSITIVE (Negative); Occult Blood Urine UA TRACE-INTACT (Negative); Protein Urine UA TRACE (Negative); Specific Gravity Urine UA 1.015 (1.000-1.035); Urobilinogen Urine UA 0.2 E.U./dL (0.2)
[2023-09-17 16:33] LABS: Bacteria Urine Moderate (10-30); Calcium Oxalate Crystals Urine Few; Culture Indicated Urine Specimen Cultured; Granular Casts Urine 1-5/LPF; RBC Urine 1-5/HPF (0-5/HPF); Squamous Epithelial Cell Urine 1-5 /HPF (0-5/HPF); Triple Phosphate Crystal Urine Few; WBC Urine 30-100/HPF (0-5/HPF)
== END ==
PROVIDERS: Family Provider Registered Nurse; PCP Internal Medicine Critical Care Medicine; Referring Provider Internal Medicine Hematology & Oncology; Visit Provider Internal Medicine Hematology & Oncology
DX: C50.212 Malignant neoplasm of upper-inner quadrant of left female breast; C50.512 Malignant neoplasm of lower-outer quadrant of left female breast; N39.0 Urinary tract infection, site not specified; Z17.0 Estrogen receptor positive status [ER+]
CPT/HCPCS: 77065; 81001; 87077; 87086; 87186; G0279

== ENCOUNTER → 2023-10-14 21:54 | Outpatient (ROUT) | payer MEDICARE, OTHER, MEDICAID, SELFPAY ==
[2023-10-14 22:48] LABS: Appearance Urine UA CLEAR; Bilirubin Urine UA NEGATIVE (NEGATIVE); Color Urine UA YELLOW; Glucose Urine UA NEGATIVE (Negative); Ketones Urine UA NEGATIVE (NEGATIVE); Leukocyte Esterase Urine UA NEGATIVE (NEGATIVE); Nitrite Urine UA NEGATIVE (Negative); Occult Blood Urine UA NEGATIVE (Negative); Protein Urine UA NEGATIVE (Negative); Specific Gravity Urine UA <=1.005 (1.000-1.035); Urobilinogen Urine UA 0.2 E.U./dL (0.2)
[2023-10-15 00:37] LABS: Culture Indicated Urine Cult Not Indicated; RBC Urine 0-1/HPF (0-5/HPF); Squamous Epithelial Cell Urine None Seen (0-5/HPF)
[2023-10-15 00:40] LABS: Bacteria Urine None Seen; WBC Urine None Seen (0-5/HPF)
== END ==
PROVIDERS: Nurse Practitioner Acute Care; Family Provider Registered Nurse; PCP Internal Medicine Critical Care Medicine; Visit Provider Nurse Practitioner Family
DX: N39.0 Urinary tract infection, site not specified (principal)
CPT/HCPCS: 81001

== ENCOUNTER → 2023-10-31 14:20 | Outpatient (CLI) | payer MEDICARE, OTHER, MEDICAID, SELFPAY ==
--- NOTE | 2023-10-31 | DI.US.S_ITS ---
PROCEDURE: US THYROID INDICATIONS: history of thyroid cancer TECHNIQUE: Real-time scanning was performed of the thyroid gland, with image documentation. COMPARISON: None. FINDINGS: Right: Thyroid lobe measures 3.6 x 1.5 x 1.0 cm, and is homogeneous in echotexture. Left: Thyroid lobe measures 3.5 x 1.4 x 1.1 cm, and is homogenous in echotexture. Isthmus: 0.3 cm thick. Nodule number: 1 Location: Inferior right thyroid lobe Size: 0.7 x 0.6 x 0.8 cm. Composition: Solid Echogenicity: Isoechoic Shape: wider than tall. Margins: Smooth Echogenic foci: None Total points: 3 ACR TI-RADS category: Mildly suspicious IMPRESSION: There is a TI-RADS 3 (mildly suspicious) inferior right thyroid nodule measuring up to 0.8 cm in size. Recommend imaging follow-up per consensus recommendations below: ACR TI-RADS definitions and recommendations: TI-RADS 1 (benign): 0 points. FNA not needed. TI-RADS 2 (not suspicious): 2 points. FNA not needed. TI-RADS 3 (mildly suspicious): 3 points. * FNA if 2.5 cm or larger, follow up if 1.5 cm or larger (at 1, 3, and 5 years). TI-RADS 4 (moderately suspicious): 4-6 points. * FNA if 1.5 cm or larger, follow up if 1 cm or larger (at 1, 2, 3, and 5 years). TI-RADS 5 (highly suspicious): 7 points or more. * FNA if 1 cm or larger, follow up if 0.5 cm or larger (every year for 5 years). Dictated by: Zohaib Perez M.D. on 10/31/2023 at 17:58 Approved by: Zohaib Perez M.D. on 10/31/2023 at 18:01
== END ==
PROVIDERS: Family Provider Registered Nurse; Referring Provider Internal Medicine Endocrinology, Diabetes & Metabolism; Visit Provider Internal Medicine Endocrinology, Diabetes & Metabolism
DX: C73 Malignant neoplasm of thyroid gland (principal); E27.8 Other specified disorders of adrenal gland; E04.1 Nontoxic single thyroid nodule
CPT/HCPCS: 76536

== ENCOUNTER 2023-11-01 10:20 | Emergency (ER) | payer MEDICARE, OTHER, MEDICAID, SELFPAY ==
[2023-11-01] VITALS (21 sets, daily range): BP systolic 137–197; BP diastolic 60–81; PULSE 60–78; RESP 11–18; TEMP 36.6; O2SAT 94–98
[2023-11-01 11:33] LABS: Add Manual Diff / Slide Review NO; Basophils Absolute Auto 100 /uL (0-100); Basophils Percent Auto 1.2 % (0-2); Eosinophils Absolute Auto 200 /uL (0-450); Eosinophils Percent Auto 3.6 % (2-4); Hematocrit 27.7 % (36-46); Hemoglobin 9.4 g/dL (12.0-16.0); Lymphocytes Absolute Auto 700 /uL (1100-4500); Lymphocytes Percent Auto 14.6 % (25-40); Mean Corpuscular HGB Conc 34.1 % (30-36); Mean Corpuscular Hemoglobin 34.9 PG (26-34); Mean Corpuscular Volume 102.5 fL (80-100); Monocytes Absolute Auto 600 /uL (0-900); Monocytes Percent Auto 11.7 % (3-14); Neutrophils Absolute Auto 3400 /uL (1500-7000); Neutrophils Percent Auto 68.9 % (50-75); Platelet Count 170 X10^3/uL (150-400); Red Cell Distribution Width 12.8 % (11.6-14.8); White Blood Cell Count 4.9 X10^3/uL (4.5-11.0)
[2023-11-01 11:46] LABS: Prothrombin Time 11.3 SECONDS (9.4-12.5)
[2023-11-01 11:48] LABS: PTT Partial Thromboplastin Tim 27 SECONDS (25.1-36.5)
--- NOTE | 2023-11-01 11:49 | ED.GIBLEED ---
HPI - GI Bleed General Chief complaint: GI Bleed Stated complaint: GI Bleed Time Seen by Provider: 11/01/23 10:38 History of Present Illness HPI Narrative: 83-year-old woman currently at [facility], hypothyroidism with parathyroid surgery 12 years ago, neuropathic pain, depression, coronary artery disease, currently not on blood thinners presents with mild abdominal pain and bloody stool noted this morning. She is not aware of previous GI bleeding and this morning notes that she had the urge to have a bowel movement and had a blood clot as large as her hand followed by some diarrheal stool with another blood clot as large as her hand. She has a history of stage 4 kidney disease, had seen her natural gas shothole driller regarding her parathyroid and thyroid abnormalities and apparently the natural gas shothole driller had ordered an adrenal CT. Her GFR is only 23 so IV contrast will not be appropriate. Related Data Home Medications Medication Instructions Recorded Confirmed fluoxetine 10 mg capsule (Prozac) 10 mg PO QPM ##0 05/06/10 [GLUCOSAMINE/CHONDROI] PO BID ##0 11/27/17 acetaminophen 500 mg tablet 500 mg PO PRN PRN ##0 11/27/17 calcium carbonate 500 mg-vitamin PO QDAY ##0 11/27/17 D3 5 mcg (200 unit) tablet (Oyster Shell Calcium-Vitamin D3) cyanocobalamin (vitamin B-12) 1,000 mcg PO QDAY ##0 11/27/17 1,000 mcg tablet,extended release docusate sodium 100 mg capsule 100 mg PO BID ##0 11/27/17 levothyroxine 112 mcg tablet 0.112 mg PO QAM ##0 11/27/17 loratadine 10 mg tablet 10 mg PO QDAY ##0 11/27/17 multivitamin (Multiple Vitamins 1 tab PO QDAY ##0 11/27/17 tablet) primidone 250 mg tablet PO SEE INSTRUCTIONS ##0 11/27/17 psyllium husk 0.52 gram capsule 0.52 gm PO QID ##0 11/27/17 (Metamucil) sennosides 8.6 mg-docusate sodium 1 tab PO BIDP PRN ##0 11/27/17 50 mg tablet (Senna with Docusate Sodium) triamcinolone acetonide 55 mcg ##0 11/27/17 nasal spray aerosol (Nasacort) vit C,E-Rr-ajfvdh-lutein-zeaxan 60 1 cap PO QPM ##0 11/27/17 mg-13.5 mg-15 mg-2 mg-6 mg capsule (Ocuvite Lutein and Zeaxanthin) diphenhydramine HCl 25 mg tablet 25 mg PO QPM ##0 12/02/17 (Benadryl Allergy) Previous Rx's Medication Instructions Recorded carvedilol 25 mg tablet (Coreg) 25 mg PO BID 30 days #0 tabs 11/29/17 gabapentin 300 mg capsule 300 mg PO HS 30 days #0 caps 11/29/17 (Neurontin) prednisone 10 mg tablet 10 mg PO AMCC #20 tabs 11/29/17 sulfamethoxazole 800 1 tab PO Q12H #20 tabs 07/08/23 mg-trimethoprim 160 mg tablet (Bactrim DS) Allergies Allergy/AdvReac Type Severity Reaction Status Date / Time ampicillin [AMPICILLIN] Allergy Unknown Swelling Verified 11/01/23 10:30 of Lip/Tongue/Throat adhesive tape Allergy Hives Verified 11/01/23 10:30 latex Allergy Hives Verified 11/01/23 10:30 lactose AdvReac Diarrhea Verified 11/01/23 10:30 NSAIDS (Non-Steroidal AdvReac Verified 11/01/23 10:30 Anti-Inflamma Review of Systems Review of Systems Narrative: Pertinent positive and negative findings as per HPI Patient History Medical History Parathyroid abnormality Hypothyroidism (acquired) Social History Smoking Status: Never smoker Smoking Status: Never smoker alcohol intake frequency: holidays/special occasions only Substance Use Type: does not use Exam Initial Vital Signs Initial Vital Signs: Vital Signs Temperature 97.8 F 11/01/23 10:23 Pulse Rate 78 11/01/23 10:23 Respiratory Rate 16 11/01/23 10:23 Blood Pressure 137/60 11/01/23 10:23 Pulse Oximetry 98 11/01/23 10:23 Oxygen Delivery Method Room Air 11/01/23 10:23 General: Frail-appearing appearing, in no acute distress. Able to give a complete and coherent history. Respiratory: Lungs are clear to auscultation, no wheezing no rales no rhonchi. Full and symmetrical air movement Cardiac: Regular rate and rhythm no murmurs no bruits Abdomen: Soft, nontender, lower abdominal midline hernia nonincarcerated. Skin: Pale but otherwise Warm and dry, no rashes Neurologic: Globally weak but otherwise Grossly neurologically intact with no obvious asymmetries or abnormalities Extremities: No trauma, well perfused Psych: Cooperative, appropriate insight and affect Course Orders Ordered: Discontinued Medications Sodium Chloride (Normal Saline 0.9%) 1,000 mls @ 1,000 mls/hr IV BOLUS ONE Stop: 11/01/23 14:24 Last Infusion: 11/01/23 15:45 Dose: Infused Documented By: Infusion: 11/01/23 14:24 Dose: 850 mls/hr Documented By: Admin: 11/01/23 13:36 Dose: 1,000 mls/hr Documented By: MACK Ondansetron HCl (Ondansetron 4 Mg/2 Ml Inj) 4 mg IV NOW PRN PRN Reason: Nausea And Vomiting Ondansetron HCl (Ondansetron 4 Mg Odt) 4 mg SL NOW PRN PRN Reason: Nausea And Vomiting Pantoprazole Sodium (Pantoprazole 40 Mg Vial) 80 mg IV NOW ONE Stop: 11/01/23 10:31 Last Admin: 11/01/23 13:36 Dose: 80 mg Documented By: MACK Vital Signs Vital signs: Vital Signs - 8 hr 11/01/23 10:23 11/01/23 11:47 11/01/23 11:54 Temperature 97.8 F Pulse Rate 78 64 Respiratory Rate 16 14 Blood Pressure 137/60 168/74 H Pulse Oximetry 98 98 Oxygen Delivery Method Room Air 11/01/23 11:54 11/01/23 12:00 11/01/23 12:00 Temperature Pulse Rate 63 62 Respiratory Rate 16 13 Blood Pressure 152/67 H Pulse Oximetry 97 94 Oxygen Delivery Method 11/01/23 12:30 11/01/23 13:00 11/01/23 13:30 Temperature Pulse Rate 66 66 60 Respiratory Rate 16 18 12 Blood Pressure Pulse Oximetry 95 97 95 Oxygen Delivery Method 11/01/23 13:31 11/01/23 13:31 11/01/23 14:00 Temperature Pulse Rate 62 65 Respiratory Rate 13 17 Blood Pressure 171/76 H Pulse Oximetry 95 95 Oxygen Delivery Method Room Air 11/01/23 14:01 11/01/23 14:01 11/01/23 14:19 Temperature Pulse Rate 64 66 Respiratory Rate 15 13 Blood Pressure 195/79 H Pulse Oximetry 94 96 Oxygen Delivery Method 11/01/23 14:19 11/01/23 14:30 Temperature Pulse Rate 66 Respiratory Rate 15 Blood Pressure 197/81 H Pulse Oximetry 97 Oxygen Delivery Method MDM - GI Bleed Lab Data 11/01/23 14:31 11/01/23 11:15 Labs: Lab Results 11/01/23 11/01/23 11/01/23 Range/Units 11:15 11:23 14:31 WBC 4.9 (4.5-11.0) X10^3/uL RBC 2.70 L (4.0-5.2) X10^6/uL Hgb 9.4 L 9.4 L (12.0-16.0) g/dL Hct 27.7 L 27.9 L (36-46) % MCV 102.5 H (80-100) fL MCH 34.9 H (26-34) PG MCHC 34.1 (30-36) % RDW 12.8 (11.6-14.8) % Plt Count 170 (150-400) X10^3/uL Neut % (Auto) 68.9 (50-75) % Lymph % (Auto) 14.6 L (25-40) % [place] % (Auto) 11.7 (3-14) % Eos % (Auto) 3.6 (2-4) % Baso % (Auto) 1.2 (0-2) % Neut # (Auto) 3400 (9527-7652) /uL Lymph # (Auto) 700 L (7198-4555) /uL [place] # (Auto) 600 (0-900) /uL Eos # (Auto) 200 (0-450) /uL Baso # (Auto) 100 (0-100) /uL PT 11.3 (9.4-12.5) SECONDS INR 1.0 (0.9-1.3) APTT 27 (25.1-36.5) SECONDS Sodium 136 L (137-145) mmol/L Potassium 3.9 (3.4-5.1) mmol/L Chloride 105 (98-107) mmol/L Carbon Dioxide 26 (22-32) mmol/L BUN 58 H (7-17) mg/dL Creatinine 2.05 H (0.52-1.04) mg/dL Estimated GFR 23 L (>60) mL/min BUN/Creatinine Ratio 28.3 H (6-22) Glucose 103 (80-110) mg/dL Calcium 10.1 (8.4-10.2) mg/dL Total Bilirubin 0.4 (0.2-1.3) mg/dL AST 21 (14-36) IU/L ALT 17 (<35) IU/L Alkaline Phosphatase 83 (38-126) U/L Total Protein 6.5 (6.3-8.2) g/dL Albumin 3.3 L (3.5-5.0) g/dL Globulin 3.2 (1.7-4.1) g/dL Albumin/Globulin Ratio 1.0 (1.0-2.8) Urine RBC (0-5/HPF) Urine WBC (0-5/HPF) Ur Squamous Epith Cells (0-5/HPF) Urine Bacteria (None) Ur Culture Indicated? Blood Type O Positive Antibody Screen Negative 11/01/23 Range/Units 16:50 WBC (4.5-11.0) X10^3/uL RBC (4.0-5.2) X10^6/uL Hgb (12.0-16.0) g/dL Hct (36-46) % MCV (80-100) fL MCH (26-34) PG MCHC (30-36) % RDW (11.6-14.8) % Plt Count (150-400) X10^3/uL Neut % (Auto) (50-75) % Lymph % (Auto) (25-40) % [place] % (Auto) (3-14) % Eos % (Auto) (2-4) % Baso % (Auto) (0-2) % Neut # (Auto) (9288-3852) /uL Lymph # (Auto) (6236-2514) /uL [place] # (Auto) (0-900) /uL Eos # (Auto) (0-450) /uL Baso # (Auto) (0-100) /uL PT (9.4-12.5) SECONDS INR (0.9-1.3) APTT (25.1-36.5) SECONDS Sodium (137-145) mmol/L Potassium (3.4-5.1) mmol/L Chloride (98-107) mmol/L Carbon Dioxide (22-32) mmol/L BUN (7-17) mg/dL Creatinine (0.52-1.04) mg/dL Estimated GFR (>60) mL/min BUN/Creatinine Ratio (6-22) Glucose (80-110) mg/dL Calcium (8.4-10.2) mg/dL Total Bilirubin (0.2-1.3) mg/dL AST (14-36) IU/L ALT (<35) IU/L Alkaline Phosphatase (38-126) U/L Total Protein (6.3-8.2) g/dL Albumin (3.5-5.0) g/dL Globulin (1.7-4.1) g/dL Albumin/Globulin Ratio (1.0-2.8) Urine RBC None seen (0-5/HPF) Urine WBC None seen (0-5/HPF) Ur Squamous Epith Cells None seen (0-5/HPF) Urine Bacteria None seen (None) Ur Culture Indicated? Cult not indicated Blood Type Antibody Screen Urine Dip Bedside Urine Glucose Negative Bedside Urine Bilirubin - Negative Bedside Urine Ketone - Negative Urine Specific [place] 1.010 Bedside Urine Occult Blood - Negative Bedside Urine pH 6.5 Bedside Urine Protein - Negative Bedside Urine Urobilinogen - Negative Bedside Urine Nitrite - Negative Bedside Urine Leukocytes +/- [address] scan - abdomen/pelvis: Radiologist's Impression: FINDINGS: Image quality: Diminished visualization given absence of both oral and intravenous contrast.. Lower Chest: No significant lung findings but the coronary arteries are prominently calcified. URINARY: Right Kidney: No stones or hydronephrosis. Right Ureter: No hydroureter. Left Kidney: No stones or hydronephrosis. Left Ureter: No hydroureter. Bladder: Normal wall thickness. No stones. ABDOMEN: Liver: No contour-deforming solid mass. Gallbladder: No radiopaque gallstones or wall thickening. Biliary ducts: No biliary dilation. Pancreas: No ductal dilation. Spleen: Size is within normal limits. Adrenal Glands: No adrenal nodules. Stomach and Bowel: Normal colonic caliber, without significant wall thickening. Mild colonic obstipation within the abdomen and pelvis. Peritoneum: No abnormal intraperitoneal fluid. No free air. Ventral Wall: No hernia. Abdominal Nodes: No enlarged retroperitoneal or mesenteric lymph nodes. Vessels: Aorta and inferior vena cava are normal in size. PELVIS: Pelvic Organs: Unremarkable. Pelvic Nodes: Unremarkable. Miscellaneous: No inguinal hernias are seen. A normal or abnormal appendix could not be located. No secondary CT evidence of acute appendicitis is found, however. Bones: Unremarkable. IMPRESSION: Mild colonic obstipation within the abdomen and pelvis. No definite acute disease. No obstructing stones or hydronephrosis. Dictated by: Chirs Rowley M.D. on 11/01/2023 at 15:00 [facility] Narrative Medical decision making narrative: CC: Blood clots per rectum Complicating co-morbidities: No prior abdominal bleeding not on thinners. Patient does not walk and is currently a full-time resident at [facility]. Patient was recently told that she had an inferior right thyroid nodule it is mildly suspicious for recurrent cancer, is supposed to have an adrenal ultrasound and follow-up with her physicians regarding this. Data collected from: patient Medical records reviewed: No medical records for significant review available Differential considered: Upper GI bleed, diverticular bleed, hemorrhoidal bleed, Exam documented above, pertinent findings include: Frail-appearing woman no acute distress mild abdominal tenderness without rebound or guarding. No significant tachycardia. Lab Test results independently reviewed as above. Pertinent findings: CBC shows no leukocytosis. H and H is 9.4 and 27.4 compared to August was 9.8 and 29.4 Chemistries are notable for creatinine at 2.05 with a GFR of 23. Slight decline from her baseline. Remainder of chemistries are reassuring Repeat H&H after 3 hours shows no significant decrease Imaging studies independently reviewed: CT scan does not show any obvious abscess abnormalities but does note obstipation Consultations: Dr. Oconnor, surgery. Agrees with admit to hospitalist service for observation with concerns for likely diverticular bleed. If symptoms worsen or change we will happily consult if requested by hospitalist service Treatments: 1 L of normal saline, pantoprazole, Zofran Discussion: 83-year-old woman with painless rectal bleeding today. She describes 2 large clots when before stool 1 after a stool with some clot mixed in with the stool. There has been a slight decrease in her H&H from August. But she is been stable in terms of H&H over the last 3 hours in the emergency department. There was no evidence that this is an upper GI bleed and does not look like hemorrhoidal bleeding. Currently hemodynamically stable. We will be appropriate for admission, observation and conservative management. Surgery will be available if requested. Has been reviewed with Dr. Pryor, hospitalist service. As she [place] [facility] [place] [facility] of the facility she can easily be observed there for any additional bleeding. If she has a additional bleeding we will happily have her return to the hospital for further evaluation. Discharge Plan Departure Patient Disposition: Home Clinical Impression: Diverticular hemorrhage Instructions: Gastrointestinal Bleeding Activity Restrictions/Additional Instructions: Thank you for coming in today Based on your history it sounds like you have had a small diverticular bleed. These are typically quite stable. We repeated a CT scan today that did not show any significant abnormalities Your hemoglobin and hematocrit dropped slightly from August with a hemoglobin at 9.8 in August, 9.4 with your initial present to the emergency department and again 9.4 after 3 hours of observation in the emergency department You have not had any additional bloody stool while in the emergency department I have discussed her case with our surgeon who feels that intervention is not required at this point given the overall stability. I have talked with the hospitalist in the light of the fact that you can return to half-way facility I believe that discharge back to your half-way facility is safe and appropriate. If there is further bleeding, drop in blood pressure or other concerns you can return to the emergency department and we will again re-evaluate. Prescriptions: No Action fluoxetine [Prozac] 10 MG capsule 10 mg PO QPM Qty: 0 levothyroxine 112 MCG tablet 0.112 mg PO QAM Qty: 0 primidone 250 MG tablet PO SEE INSTRUCTIONS Qty: 0 calcium carbonate-vitamin D3 [Oyster Shell Calcium-Vit D3] 500 mg(1,250mg) -200 unit tablet PO QDAY Qty: 0 acetaminophen 500 MG tablet 500 mg PO PRN PRNQty: 0 loratadine 10 MG tablet 10 mg PO QDAY Qty: 0 triamcinolone acetonide [Nasacort] 55 MCG/PUFF aerosol,spray Qty: 0 [GLUCOSAMINE/CHONDROI] PO BID Qty: 0 cyanocobalamin (vitamin B-12) 1,000 MCG tablet extended release 1,000 mcg PO QDAY Qty: 0 multivitamin [Multiple Vitamins] 1 EACH tablet 1 tab PO QDAY Qty: 0 vit C,F-Ci-qdcjf-lutein-zeaxan [Ocuvite Lutein and Zeaxanthin] 1 EACH capsule 1 cap PO QPM Qty: 0 docusate sodium 100 MG capsule 100 mg PO BID Qty: 0 psyllium husk [Metamucil] 0.52 GM capsule 0.52 gm PO QID Qty: 0 sennosides-docusate sodium [Senna with Docusate Sodium] 8.6 MG/50 MG tablet 1 tab PO BIDP PRNQty: 0 carvedilol [Coreg] 25 MG tablet 25 mg PO BID 30 Days Qty: 0 0RF gabapentin [Neurontin] 300 MG capsule 300 mg PO HS 30 Days Qty: 0 0RF prednisone 10 MG tablet 10 mg PO AMCC Qty: 20 0RF diphenhydramine HCl [Benadryl Allergy] 25 MG tablet 25 mg PO QPM Qty: 0 sulfamethoxazole-trimethoprim [Bactrim DS] 800-160 mg tablet 1 tab PO Q12H Qty: 20 0RF Stand Alone Forms: Patient Portal/API
[2023-11-01 11:50] LABS: Alanine Aminotransferase 17 IU/L (<35); Albumin 3.3 g/dL (3.5-5.0); Alkaline Phosphatase 83 U/L (38-126); Aspartate Aminotransferase 21 IU/L (14-36); BUN Creatinine Ratio 28.3 (6-22); Bilirubin Total 0.4 mg/dL (0.2-1.3); Blood Urea Nitrogen 58 mg/dL (7-17); Calcium 10.1 mg/dL (8.4-10.2); Carbon Dioxide 26 mmol/L (22-32); Chloride 105 mmol/L (98-107); Estimated Glomerular Filt Rate 23 mL/min (>60); Globulin 3.2 g/dL (1.7-4.1); Glucose 103 mg/dL (80-110); HEMOLYSIS < 15 (0-50); Potassium 3.9 mmol/L (3.4-5.1); Sodium 136 mmol/L (137-145); Total Protein 6.5 g/dL (6.3-8.2)
--- NOTE | 2023-11-01 13:25 | DI.CT.S_ITS ---
PROCEDURE: CT ABDOMEN PELVIS WO CON INDICATIONS: Abdominal pain, GI bleeding, TECHNIQUE: Axial sections were acquired from the lung bases to the pubic symphysis. Coronal and sagittal reformats were performed. For radiation dose reduction, the following was used: automated exposure control, adjustment of mA and/or kV according to patient size. COMPARISON: None. FINDINGS: Image quality: Diminished visualization given absence of both oral and intravenous contrast.. Lower Chest: No significant lung findings but the coronary arteries are prominently calcified. URINARY: Right Kidney: No stones or hydronephrosis. Right Ureter: No hydroureter. Left Kidney: No stones or hydronephrosis. Left Ureter: No hydroureter. Bladder: Normal wall thickness. No stones. ABDOMEN: Liver: No contour-deforming solid mass. Gallbladder: No radiopaque gallstones or wall thickening. Biliary ducts: No biliary dilation. Pancreas: No ductal dilation. Spleen: Size is within normal limits. Adrenal Glands: No adrenal nodules. Stomach and Bowel: Normal colonic caliber, without significant wall thickening. Mild colonic obstipation within the abdomen and pelvis. Peritoneum: No abnormal intraperitoneal fluid. No free air. Ventral Wall: No hernia. Abdominal Nodes: No enlarged retroperitoneal or mesenteric lymph nodes. Vessels: Aorta and inferior vena cava are normal in size. PELVIS: Pelvic Organs: Unremarkable. Pelvic Nodes: Unremarkable. Miscellaneous: No inguinal hernias are seen. A normal or abnormal appendix could not be located. No secondary CT evidence of acute appendicitis is found, however. Bones: Unremarkable. IMPRESSION: Mild colonic obstipation within the abdomen and pelvis. No definite acute disease. No obstructing stones or hydronephrosis. Dictated by: Chris Rowley M.D. on 11/01/2023 at 15:00 Approved by: Chris Rowley M.D. on 11/01/2023 at 15:03
[2023-11-01] MEDS: PANTOPRAZOLE 40 MG VIAL 80 MG IV (13:36)
[2023-11-01] MEDS: SODIUM CHLORIDE 0.9% 1,000 ML 1000 ML IV (13:36)
--- NOTE | 2023-11-01 13:55 | PC.NURSE ---
Pt denies SOB, lightheaded, or dizziness. She feels weak the past few days and foggy headed. Pt has history of hernias, no GI bleed history. Today while in the shower room at her facility, pt had dark red clots the size of my hand and bright red blood with it.
[2023-11-01 14:37] LABS: Hematocrit 27.9 % (36-46); Hemoglobin 9.4 g/dL (12.0-16.0)
[2023-11-01 17:56] LABS: Bacteria Urine None Seen; Culture Indicated Urine Cult Not Indicated; RBC Urine None Seen (0-5/HPF); Squamous Epithelial Cell Urine None Seen (0-5/HPF); WBC Urine None Seen (0-5/HPF)
== END 2023-11-01 18:45 | disposition home or self-care (01) ==
PROVIDERS: Emergency Provider Emergency Medicine; Family Provider Registered Nurse
DX: K57.31 Diverticulosis of large intestine without perforation or abscess with bleeding (principal)
CPT/HCPCS: 36415; 74176; 80053; 81003; 81015; 85014; 85018; 85025; 85610; 85730; 86850; 86900; 86901; 96361; 96374; 99284; C9113

== ENCOUNTER → 2023-11-08 07:52 | Outpatient (CLI) | payer MEDICARE, OTHER, MEDICAID, SELFPAY ==
[2023-11-08 10:55] LABS: Free T4, Direct Thyroxine 1.01 ng/dL (0.78-2.19)
[2023-11-10 11:09] LABS: Adrenocorticotropic Hormone 13.5 pg/mL (7.2-63.3)
[2023-11-16 18:27] LABS: Dexamethasone, Serum <30 ng/dL (.)
[2023-11-18 09:41] LABS: Corticosteroid Bind Globulin 2.9
== END ==
LOC: LAB 07:55
PROVIDERS: Family Provider Registered Nurse; PCP Nurse Practitioner Family; Referring Provider Internal Medicine Endocrinology, Diabetes & Metabolism; Visit Provider Internal Medicine Endocrinology, Diabetes & Metabolism
DX: E27.8 Other specified disorders of adrenal gland (principal); C73 Malignant neoplasm of thyroid gland
CPT/HCPCS: 36415; 80375; 82024; 84439; 84443; 84449

== ENCOUNTER 2023-11-24 22:15 | Emergency (ER) | payer MEDICARE, OTHER, MEDICAID, SELFPAY ==
[2023-11-24 22:19] VITALS: BP 153/87; PULSE 89; PULSE 95; RESP 20; TEMP 36; O2SAT 96; O2SAT 97; BMI 40.0
[2023-11-24 22:20] VITALS: BP 153/87; PULSE 89; O2SAT 96
--- NOTE | 2023-11-24 22:26 | ED_ITS ---
HPI - Altered Mental Status General Chief Complaint: Altered Mental Status Stated Complaint: manic Time Seen by Provider: 11/24/23 22:26 History of Present Illness HPI narrative: 83-year-old female with history of breast cancer on oral chemotherapy, hypertension, dyslipidemia, CKD stage 4, not on dialysis, hypothyroidism with parathyroid surgery 12 years ago, neuropathic pain, depression, coronary artery disease who is currently living at [facility]. Patient states that she has been confused, she states that she was given baclofen she needs to get it out of her system and then it is making her confused and off. It does appear she was started on baclofen yesterday and has had at least 1 or 2 doses. Looks like it was started for muscles/back spasms. Patient had her hydralazine increased in October but otherwise appears to have had stable medications. There was some discussion that her primidone may have been increased but this appears to been started in July. Patient also reportedly has bipolar disorder. She denies pain, denies headache, denies any chest pain or shortness of breath, denies any nausea or vomiting. States she urinates regularly and that she thinks that her Lasix was recently increased and has been urinating more frequently. She states she did have a hospitalization for UTI in the past. She states there has been discussion about dialysis but that she does not have a fistula but her GFR runs in the 20s. She is alert, conversant, does seem somewhat confused. Patient has a POLST notes comfort measures. Patient is agreeable to labs and felt appropriate as she may have easily reversible/treatable cause of her confusion. Related Data Home Medications Medication Instructions Recorded Confirmed fluoxetine 10 mg capsule (Prozac) 10 mg PO QPM ##0 05/06/10 [GLUCOSAMINE/CHONDROI] PO BID ##0 11/27/17 acetaminophen 500 mg tablet 500 mg PO PRN PRN ##0 11/27/17 calcium carbonate 500 mg-vitamin PO QDAY ##0 11/27/17 D3 5 mcg (200 unit) tablet (Oyster Shell Calcium-Vitamin D3) cyanocobalamin (vitamin B-12) 1,000 mcg PO QDAY ##0 11/27/17 1,000 mcg tablet,extended release docusate sodium 100 mg capsule 100 mg PO BID ##0 11/27/17 levothyroxine 112 mcg tablet 0.112 mg PO QAM ##0 11/27/17 loratadine 10 mg tablet 10 mg PO QDAY ##0 11/27/17 multivitamin (Multiple Vitamins 1 tab PO QDAY ##0 11/27/17 tablet) primidone 250 mg tablet PO SEE INSTRUCTIONS ##0 11/27/17 psyllium husk 0.52 gram capsule 0.52 gm PO QID ##0 11/27/17 (Metamucil) sennosides 8.6 mg-docusate sodium 1 tab PO BIDP PRN ##0 11/27/17 50 mg tablet (Senna with Docusate Sodium) triamcinolone acetonide 55 mcg ##0 11/27/17 nasal spray aerosol (Nasacort) vit C,Y-Ya-vwykxh-lutein-zeaxan 60 1 cap PO QPM ##0 11/27/17 mg-13.5 mg-15 mg-2 mg-6 mg capsule (Ocuvite Lutein and Zeaxanthin) diphenhydramine HCl 25 mg tablet 25 mg PO QPM ##0 12/02/17 (Benadryl Allergy) Previous Rx's Medication Instructions Recorded carvedilol 25 mg tablet (Coreg) 25 mg PO BID 30 days #0 tabs 11/29/17 gabapentin 300 mg capsule 300 mg PO HS 30 days #0 caps 11/29/17 (Neurontin) prednisone 10 mg tablet 10 mg PO AMCC #20 tabs 11/29/17 sulfamethoxazole 800 1 tab PO Q12H #20 tabs 07/08/23 mg-trimethoprim 160 mg tablet (Bactrim DS) levofloxacin 750 mg tablet 750 mg PO DAILY 7 days #7 tabs 11/25/23 Allergies Allergy/AdvReac Type Severity Reaction Status Date / Time ampicillin [AMPICILLIN] Allergy Unknown Swelling Verified 11/01/23 10:30 of Lip/Tongue/Throat adhesive tape Allergy Hives Verified 11/01/23 10:30 latex Allergy Hives Verified 11/01/23 10:30 lactose AdvReac Diarrhea Verified 11/01/23 10:30 NSAIDS (Non-Steroidal AdvReac Verified 11/01/23 10:30 Anti-Inflamma Review of Systems Review of Systems ROS Unobtainable: All systems reviewed & are unremarkable except as noted in HPI and below Patient History Medical History Parathyroid abnormality Hypothyroidism (acquired) Social History Smoking Status: Never smoker Smoking Status: Never smoker alcohol intake frequency: holidays/special occasions only Substance Use Type: does not use Exam Narrative Exam Narrative: GEN: Obese, well appearing elderly female, alert and oriented to self and location, patient able to answer quite a bit of medical history but perseverates, patient appears to be in mild distress. HEENT: Atraumatic, pupils are equal round reactive to light, extraocular movements are intact, nares are clear, TMs are clear with no fluid, there is no conjunctival pallor. Throat is clear without any exudates, erythema, tonsillar enlargement or uvular deviation, no facial droop HEART: Regular rate and rhythm without murmur, clicks, rubs. LUNGS:Lungs clear to auscultation, no wheezes, rales, crackles, chest moves symmetrically ABD:bowel sounds normal, soft, non-tender, no guarding, rebound, rigidity, no masses noted, no hepatosplenomegaly :No CVA tenderness MSCL: Non-tender, no muscle atrophy, full range of motion of upper extremities. Patient does have some edema bilateral lower extremities. Has not ankle brace on the left NEURO:CN 2-12 intact, sensation normal. PSYCH: no SI or HI, confusion but does not appear to be having any hallucinations. Initial Vital Signs Initial Vital Signs: Vital Signs Temperature 96.8 F L 11/24/23 22:19 Pulse Rate 95 H 11/24/23 22:19 Respiratory Rate 20 11/24/23 22:19 Blood Pressure 153/87 H 11/24/23 22:19 Pulse Oximetry 96 11/24/23 22:19 Oxygen Delivery Method Room Air 11/24/23 22:19 Course Orders Ordered: ED Orders 11/24/23 22:48 XR chest 1V Stat 11/24/23 22:55 Acetaminophen Stat Ammonia (NH3) Stat Complete Blood Count AUTO DIFF Stat Comprehensive Metabolic Panel Stat Ethanol (ETOH) Stat Lactate (Lactic Acid) Stat PTT Partial Thromboplastin [place] Stat Prothrombin Time INR Stat Salicylate Stat Thyroid Stimulating Hormone Stat 11/24/23 23:35 Urinalysis and Microscopic Stat Urine Culture Stat Urine Drug Screen, Rapid Stat Discontinued Medications Sodium Chloride (Normal Saline 0.9%) 500 mls @ 1,000 mls/hr IV BOLUS ONE Stop: 11/25/23 00:32 Last Infusion: 11/25/23 00:52 Dose: Infused Documented By: Admin: 11/25/23 00:15 Dose: 1,000 mls/hr Documented By: ROSSY Levofloxacin (Levaquin) 750 mg in 150 mls @ 100 mls/hr IV NOW ONE Stop: 11/25/23 01:58 Last Admin: 11/25/23 00:45 Dose: 100 mls/hr Documented By: ROSSY Vital Signs Vital signs: Vital Signs - 8 hr 11/24/23 22:19 11/24/23 22:19 11/24/23 22:20 Temperature 96.8 F L Pulse Rate 95 H 89 Respiratory Rate 20 Blood Pressure 153/87 H 153/87 H Pulse Oximetry 96 97 Oxygen Delivery Method Room Air 11/24/23 22:20 11/24/23 22:30 11/24/23 22:30 Temperature Pulse Rate 89 88 Respiratory Rate Blood Pressure 154/83 H Pulse Oximetry 96 96 Oxygen Delivery Method 11/24/23 23:00 11/24/23 23:30 11/24/23 23:34 Temperature Pulse Rate 86 82 84 Respiratory Rate 18 Blood Pressure Pulse Oximetry 96 97 95 Oxygen Delivery Method Room Air Room Air 11/24/23 23:34 11/25/23 00:00 11/25/23 00:00 Temperature Pulse Rate 83 Respiratory Rate 18 Blood Pressure 196/90 H 198/92 H Pulse Oximetry 98 Oxygen Delivery Method 11/25/23 00:30 11/25/23 00:31 11/25/23 00:31 Temperature Pulse Rate 78 79 Respiratory Rate Blood Pressure 202/96 H Pulse Oximetry 97 97 Oxygen Delivery Method Room Air Room Air 11/25/23 00:44 11/25/23 00:44 11/25/23 01:00 Temperature Pulse Rate 77 78 Respiratory Rate Blood Pressure 236/108 H Pulse Oximetry 97 96 Oxygen Delivery Method Room Air 11/25/23 01:17 11/25/23 01:30 11/25/23 02:00 Temperature Pulse Rate 78 77 80 Respiratory Rate 20 18 Blood Pressure 168/88 H Pulse Oximetry 97 91 97 Oxygen Delivery Method Room Air MDM - Altered Mental Status Lab Data 11/24/23 22:55 11/24/23 22:55 Labs: Lab Results 11/24/23 11/24/23 11/24/23 Range/Units 22:55 23:35 23:35 WBC 9.1 (4.5-11.0) X10^3/uL RBC 3.15 L (4.0-5.2) X10^6/uL Hgb 10.8 L (12.0-16.0) g/dL Hct 32.1 L (36-46) % MCV 101.9 H (80-100) fL MCH 34.4 H (26-34) PG MCHC 33.7 (30-36) % RDW 13.6 (11.6-14.8) % Plt Count 220 (150-400) X10^3/uL Neut % (Auto) 81.6 H (50-75) % Lymph % (Auto) 9.8 L (25-40) % [place] % (Auto) 6.6 (3-14) % Eos % (Auto) 1.4 L (2-4) % Baso % (Auto) 0.6 (0-2) % Neut # (Auto) 7400 H (9997-9874) /uL Lymph # (Auto) 900 L (5285-8463) /uL [place] # (Auto) 600 (0-900) /uL Eos # (Auto) 100 (0-450) /uL Baso # (Auto) 100 (0-100) /uL PT 9.6 (9.4-12.5) SECONDS INR 0.8 L (0.9-1.3) APTT 30 (25.1-36.5) SECONDS Sodium 137 (137-145) mmol/L Potassium 3.5 (3.4-5.1) mmol/L Chloride 99 (98-107) mmol/L Carbon Dioxide 26 (22-32) mmol/L BUN 64 H (7-17) mg/dL Creatinine 2.37 H (0.52-1.04) mg/dL Estimated GFR 20 L (>60) mL/min BUN/Creatinine Ratio 27.0 H (6-22) Glucose 131 H (80-110) mg/dL Lactate 2.3 H (0.7-2.1) mmol/L Calcium 10.6 H (8.4-10.2) mg/dL Total Bilirubin 0.4 (0.2-1.3) mg/dL AST 22 (14-36) IU/L ALT 18 (<35) IU/L Alkaline Phosphatase 153 H (38-126) U/L Ammonia 11 (9-30) umol/L Total Protein 7.6 (6.3-8.2) g/dL Albumin 3.9 (3.5-5.0) g/dL Globulin 3.7 (1.7-4.1) g/dL Albumin/Globulin Ratio 1.1 (1.0-2.8) TSH 1.44 (0.47-4.68) uIU/mL Urine Color Yellow Urine Appearance Clear Urine pH 6.0 Not Reportable (4.5-8.0) Ur Specific [place] 1.015 (1.000-1.035) Urine Protein Trace H (Negative) Urine Glucose (UA) Negative (Negative) g/dL Urine Ketones Negative (NEGATIVE) Urine Occult Blood Negative (Negative) Urine Nitrate Negative (Negative) Urine Bilirubin Negative (NEGATIVE) Urine Urobilinogen 0.2 (0.2) E.U./dL Ur Leukocyte Esterase 1+ H (NEGATIVE) Urine RBC None seen (0-5/HPF) Urine WBC 10-30/hpf H (0-5/HPF) Ur Squamous Epith Cells 1-5 /hpf (0-5/HPF) Ur Transition Epith Cell 0-1/hpf (0-5/HPF) Ur Renal Epithelial Cell 0-1/hpf (0-1/HPF) Urine Bacteria Few (2-10) H (None) Hyaline Casts 0-1/lpf (None) Ur Culture Indicated? Specimen cultured Vol Urine Centrifuged 10ml (spun) Salicylates < 1.0 (<20) mg/dL U Opiates 300ng/mL cut Negative (Negative) Ur Oxycodone Screen Negative (Negative) Urine Methadone Screen Negative (Negative) Acetaminophen < 10 (10-30) ug/mL Ur Barbiturates Screen Positive H (Negative) U Tricyclic Antidepress Negative (Negative) Ur Phencyclidine Scrn Negative (Negative) Ur Amphetamines Screen Negative (Negative) U Methamphetamines Scrn Negative (Negative) Ur MDMA Scrn (Ecstasy) Negative (Negative) U Benzodiazepines Scrn Negative (Negative) Urine Cocaine Screen Negative (Negative) U Marijuana (THC) Screen Negative (Negative) Urine Specific [place] Not Reportable Ethyl Alcohol < 10 ( - 10) mg/dL Ur Creatinine Not Reportable 11/25/23 Range/Units 01:02 WBC (4.5-11.0) X10^3/uL RBC (4.0-5.2) X10^6/uL Hgb (12.0-16.0) g/dL Hct (36-46) % MCV (80-100) fL MCH (26-34) PG MCHC (30-36) % RDW (11.6-14.8) % Plt Count (150-400) X10^3/uL Neut % (Auto) (50-75) % Lymph % (Auto) (25-40) % [place] % (Auto) (3-14) % Eos % (Auto) (2-4) % Baso % (Auto) (0-2) % Neut # (Auto) (3315-0470) /uL Lymph # (Auto) (5007-1596) /uL [place] # (Auto) (0-900) /uL Eos # (Auto) (0-450) /uL Baso # (Auto) (0-100) /uL PT (9.4-12.5) SECONDS INR (0.9-1.3) APTT (25.1-36.5) SECONDS Sodium (137-145) mmol/L Potassium (3.4-5.1) mmol/L Chloride (98-107) mmol/L Carbon Dioxide (22-32) mmol/L BUN (7-17) mg/dL Creatinine (0.52-1.04) mg/dL Estimated GFR (>60) mL/min BUN/Creatinine Ratio (6-22) Glucose (80-110) mg/dL Lactate 1.2 (0.7-2.1) mmol/L Calcium (8.4-10.2) mg/dL Total Bilirubin (0.2-1.3) mg/dL AST (14-36) IU/L ALT (<35) IU/L Alkaline Phosphatase (38-126) U/L Ammonia (9-30) umol/L Total Protein (6.3-8.2) g/dL Albumin (3.5-5.0) g/dL Globulin (1.7-4.1) g/dL Albumin/Globulin Ratio (1.0-2.8) TSH (0.47-4.68) uIU/mL Urine Color Urine Appearance Urine pH (4.5-8.0) Ur Specific [place] (1.000-1.035) Urine Protein (Negative) Urine Glucose (UA) (Negative) g/dL Urine Ketones (NEGATIVE) Urine Occult Blood (Negative) Urine Nitrate (Negative) Urine Bilirubin (NEGATIVE) Urine Urobilinogen (0.2) E.U./dL Ur Leukocyte Esterase (NEGATIVE) Urine RBC (0-5/HPF) Urine WBC (0-5/HPF) Ur Squamous Epith Cells (0-5/HPF) Ur Transition Epith Cell (0-5/HPF) Ur Renal Epithelial Cell (0-1/HPF) Urine Bacteria (None) Hyaline Casts (None) Ur Culture Indicated? Vol Urine Centrifuged Salicylates (<20) mg/dL U Opiates 300ng/mL cut (Negative) Ur Oxycodone Screen (Negative) Urine Methadone Screen (Negative) Acetaminophen (10-30) ug/mL Ur Barbiturates Screen (Negative) U Tricyclic Antidepress (Negative) Ur Phencyclidine Scrn (Negative) Ur Amphetamines Screen (Negative) U Methamphetamines Scrn (Negative) Ur MDMA Scrn (Ecstasy) (Negative) U Benzodiazepines Scrn (Negative) Urine Cocaine Screen (Negative) U Marijuana (THC) Screen (Negative) Urine Specific [place] Ethyl Alcohol ( - 10) mg/dL Ur Creatinine Imaging Data Chest x-ray: Radiologist's Impression: Close Chest X-Ray (Signed) Lavinia Oleary - 11/24/23 Launch?Image [address] [address] XRay Report Signed Patient: Mary Sandoval MR#: [id number] : 1940 Acct:[id number] Age/Sex: 83 / F Date of Service: 11/24/23 Loc: ED Accession Number: [id number] Procedure: XR chest 1V Ordering Provider: Charity Caceres D.O. PROCEDURE: XR CHEST 1V INDICATIONS: confused TECHNIQUE: One view of the chest was acquired. COMPARISON: [facility], CR, XR CHEST 1V, 07/08/2023, 16:00. [facility], CR, XR CHEST 1V, 08/28/2023, 15:25. FINDINGS: Surgical changes and devices: None. Lungs and pleura: Mild left hemidiaphragm elevation. Lungs are clear. No pleural effusions or pneumothorax. Mediastinum: Mediastinal contours appear normal. Heart size is normal. Bones and chest wall: No suspicious bony lesions. Overlying soft tissues appear unremarkable. IMPRESSION: No acute cardiopulmonary abnormality is seen. Dictated by: Lavinia Oleary M.D. on 11/24/2023 at 23:39 Approved by: Lavinia Oleary M.D. on 11/24/2023 at 23:41 [facility] Narrative Medical decision making narrative: 83-year-old who presents with concern for confusion and feeling altered. She thinks it maybe the baclofen that was recently started. With her renal dysfunction this is certainly a possibility. Patient's seems mildly confused but otherwise appropriate. She does not appear to be manic at this time on my evaluation. She does have a history of depression/reported bipolar but appears to be on primidone and has on her MAR since July. Patient's white count 9, hemoglobin 10.8 consistent with priors, macrocytosis which is not new with platelets of 220. Coags are negative, normal electrolytes BUN is 64 creatinine 2.37 with a GFR of 20, patient states her GFR runs around 22-23. Glucose is 131 with a lactate of 2.3 and calcium was slightly elevated at 10.6. Alk-phos was elevated at 153 but normal bilirubin and AST ALT. TSH appropriate at 1.44. Ammonia is negative UDS is positive for barbiturates, this can be positive with the primidone. Tylenol/salicylate/ETOH is negative. UA shows trace protein, 1+ leuks, 10-30 WBCs with no RBCs 1-5 squamous epithelial and few bacteria patient was covered dose with IV Levaquin. Patient is felt appropriate for discharge back to [facility]. Can continue with oral antibiotics. Plan to hold baclofen. Patient appeared to be quite hypertensive but cuff was on her wrist and with manual is more appropriate than 160s. Discharge Plan Departure Patient Disposition: Home Clinical Impression: UTI (urinary tract infection) Activity Restrictions/Additional Instructions: I would recommend holding your baclofen at this time. This can cause contribute to confusion. Your urine shows some signs of infection, take antibiotics until completed. You seemed 1st dose of antibiotic through the IV today. Take antibiotics until completed. Prescription sent to [facility] pharmacy in [place]. Return for fevers, worsening altered mental status, new chest pain or shortness of breath, persistent vomiting, new abdominal back or flank pain or other new or concerning changes. Prescriptions: New levofloxacin 750 mg tablet 750 mg PO DAILY 7 Days Qty: 7 0RF No Action fluoxetine [Prozac] 10 MG capsule 10 mg PO QPM Qty: 0 levothyroxine 112 MCG tablet 0.112 mg PO QAM Qty: 0 primidone 250 MG tablet PO SEE INSTRUCTIONS Qty: 0 calcium carbonate-vitamin D3 [Oyster Shell Calcium-Vit D3] 500 mg(1,250mg) - 200 unit tablet PO QDAY Qty: 0 acetaminophen 500 MG tablet 500 mg PO PRN PRNQty: 0 loratadine 10 MG tablet 10 mg PO QDAY Qty: 0 triamcinolone acetonide [Nasacort] 55 MCG/PUFF aerosol,spray Qty: 0 [GLUCOSAMINE/CHONDROI] PO BID Qty: 0 cyanocobalamin (vitamin B-12) 1,000 MCG tablet extended release 1,000 mcg PO QDAY Qty: 0 multivitamin [Multiple Vitamins] 1 EACH tablet 1 tab PO QDAY Qty: 0 vit C,F-Vs-rqzpn-lutein-zeaxan [Ocuvite Lutein and Zeaxanthin] 1 EACH capsule 1 cap PO QPM Qty: 0 docusate sodium 100 MG capsule 100 mg PO BID Qty: 0 psyllium husk [Metamucil] 0.52 GM capsule 0.52 gm PO QID Qty: 0 sennosides-docusate sodium [Senna with Docusate Sodium] 8.6 MG/50 MG tablet 1 tab PO BIDP PRNQty: 0 carvedilol [Coreg] 25 MG tablet 25 mg PO BID 30 Days Qty: 0 0RF gabapentin [Neurontin] 300 MG capsule 300 mg PO HS 30 Days Qty: 0 0RF prednisone 10 MG tablet 10 mg PO AMCC Qty: 20 0RF diphenhydramine HCl [Benadryl Allergy] 25 MG tablet 25 mg PO QPM Qty: 0 sulfamethoxazole-trimethoprim [Bactrim DS] 800-160 mg tablet 1 tab PO Q12H Qty: 20 0RF Referrals: Landen Field ARNP [Primary Care Provider] - Stand Alone Forms: Patient Portal/API
[2023-11-24 22:30] VITALS: BP 154/83; PULSE 88; O2SAT 96
--- NOTE | 2023-11-24 22:48 | DI.RAD.S_ITS ---
PROCEDURE: XR CHEST 1V INDICATIONS: confused TECHNIQUE: One view of the chest was acquired. COMPARISON: [facility], CR, XR CHEST 1V, 07/08/2023, 16:00. [facility], CR, XR CHEST 1V, 08/28/2023, 15:25. FINDINGS: Surgical changes and devices: None. Lungs and pleura: Mild left hemidiaphragm elevation. Lungs are clear. No pleural effusions or pneumothorax. Mediastinum: Mediastinal contours appear normal. Heart size is normal. Bones and chest wall: No suspicious bony lesions. Overlying soft tissues appear unremarkable. IMPRESSION: No acute cardiopulmonary abnormality is seen. Dictated by: Lavinia Oleary M.D. on 11/24/2023 at 23:39 Approved by: Lavinia Oleary M.D. on 11/24/2023 at 23:41
[2023-11-24 23:00] VITALS: PULSE 86; RESP 18; O2SAT 96
[2023-11-24 23:14] LABS: Add Manual Diff / Slide Review NO; Basophils Absolute Auto 100 /uL (0-100); Basophils Percent Auto 0.6 % (0-2); Eosinophils Absolute Auto 100 /uL (0-450); Eosinophils Percent Auto 1.4 % (2-4); Hematocrit 32.1 % (36-46); Hemoglobin 10.8 g/dL (12.0-16.0); Lymphocytes Absolute Auto 900 /uL (1100-4500); Lymphocytes Percent Auto 9.8 % (25-40); Mean Corpuscular HGB Conc 33.7 % (30-36); Mean Corpuscular Hemoglobin 34.4 PG (26-34); Mean Corpuscular Volume 101.9 fL (80-100); Monocytes Absolute Auto 600 /uL (0-900); Monocytes Percent Auto 6.6 % (3-14); Neutrophils Absolute Auto 7400 /uL (1500-7000); Neutrophils Percent Auto 81.6 % (50-75); Platelet Count 220 X10^3/uL (150-400); Red Blood Cell Count 3.15 X10^6/uL (4.0-5.2); Red Cell Distribution Width 13.6 % (11.6-14.8); White Blood Cell Count 9.1 X10^3/uL (4.5-11.0)
[2023-11-24 23:26] LABS: PTT Partial Thromboplastin Tim 30 SECONDS (25.1-36.5)
[2023-11-24 23:30] VITALS: PULSE 82; O2SAT 97
[2023-11-24 23:30] LABS: Lactate (Lactic Acid) 2.3 mmol/L (0.7-2.1)
[2023-11-24 23:31] LABS: Alanine Aminotransferase 18 IU/L (<35); Albumin 3.9 g/dL (3.5-5.0); Albumin Globulin Ratio 1.1 (1.0-2.8); Alkaline Phosphatase 153 U/L (38-126); Aspartate Aminotransferase 22 IU/L (14-36); Bilirubin Total 0.4 mg/dL (0.2-1.3); Blood Urea Nitrogen 64 mg/dL (7-17); Calcium 10.6 mg/dL (8.4-10.2); Carbon Dioxide 26 mmol/L (22-32); Chloride 99 mmol/L (98-107); Estimated Glomerular Filt Rate 20 mL/min (>60); Globulin 3.7 g/dL (1.7-4.1); Glucose 131 mg/dL (80-110); HEMOLYSIS < 15 (0-50); Potassium 3.5 mmol/L (3.4-5.1); Sodium 137 mmol/L (137-145); Total Protein 7.6 g/dL (6.3-8.2)
[2023-11-24 23:34] VITALS: BP 196/90; PULSE 84; O2SAT 95
[2023-11-24 23:42] LABS: INR 0.8 (0.9-1.3); Prothrombin Time 9.6 SECONDS (9.4-12.5)
[2023-11-24 23:47] LABS: Urine Volume 10mL (spun)
[2023-11-24 23:48] LABS: Appearance Urine UA CLEAR; Bilirubin Urine UA NEGATIVE (NEGATIVE); Color Urine UA YELLOW; Glucose Urine UA NEGATIVE (Negative); Ketones Urine UA NEGATIVE (NEGATIVE); Leukocyte Esterase Urine UA 1+ (NEGATIVE); Nitrite Urine UA NEGATIVE (Negative); Occult Blood Urine UA NEGATIVE (Negative); Protein Urine UA TRACE (Negative); Specific Gravity Urine UA 1.015 (1.000-1.035); Urobilinogen Urine UA 0.2 E.U./dL (0.2)
[2023-11-24 23:59] LABS: UR Morphine/Opiate cutoff 300 Negative (Negative); Urine Amphetamines Negative (Negative); Urine Barbiturates Positive (Negative); Urine Benzodiazepines Negative (Negative); Urine Cocaine Negative (Negative); Urine MDMA Negative (Negative); Urine Methadone Negative (Negative); Urine Methamphetamines Negative (Negative); Urine Oxycodone Negative (Negative); Urine Phencyclidine Negative (Negative); Urine Tetrahydrocannabinol Negative (Negative); Urine Tricyclic Antidepressant Negative (Negative)
[2023-11-25] VITALS (9 sets, daily range): BP systolic 168–236; BP diastolic 86–108; PULSE 77–83; RESP 18–20; O2SAT 91–98
[2023-11-25] LABS: Thyroid Stimulating Hormone 1.44 uIU/mL (0.47-4.68)
[2023-11-25 00:13] LABS: Bacteria Urine Few (2-10); RBC Urine None Seen (0-5/HPF); WBC Urine 10-30/HPF (0-5/HPF)
[2023-11-25 00:14] LABS: Culture Indicated Urine Specimen Cultured; Hyaline Casts Urine 0-1/LPF; Renal Epithelial Cells Urine 0-1/HPF (0-1/HPF); Squamous Epithelial Cell Urine 1-5 /HPF (0-5/HPF); Transitional Epi Cells Urine 0-1/HPF (0-5/HPF)
[2023-11-25] MEDS: SODIUM CHLORIDE 0.9% 500 ML 1000 ML IV (00:15)
[2023-11-25] MEDS: levoFLOXacin 750 MG/150 ML PIGGYBACK 100 MG IV (00:45)
[2023-11-25 00:48] LABS: Reflexed Lactate in 2 Hours Y
[2023-11-25 01:21] LABS: Lactate 2HR (Lactic Acid Rflx) 1.2 mmol/L (0.7-2.1)
[2023-11-25 01:24] LABS: Ammonia (NH3) 11 umol/L (9-30)
[2023-11-25 01:32] LABS: Acetaminophen < 10 ug/mL (10-30); Ethanol (ETOH) < 10 mg/dL; Salicylate < 1.0 mg/dL (<20)
== END 2023-11-25 02:50 | disposition home or self-care (01) ==
PROVIDERS: Emergency Provider Emergency Medicine; Family Provider Registered Nurse; PCP Nurse Practitioner Family
DX: N39.0 Urinary tract infection, site not specified (principal); R41.0 Disorientation, unspecified
CPT/HCPCS: 36415; 71045; 80053; 80305; 80320; 80329; 81001; 82140; 83605; 84443; 85025; 85610; 85730; 87077; 87086; 96365; 96366; 99284; G0480; J1956

== ENCOUNTER → 2023-11-26 12:33 | Outpatient (ROUT) | payer MEDICARE, OTHER, MEDICAID, SELFPAY ==
[2023-11-26 12:44] LABS: Alanine Aminotransferase 17 IU/L (<35); Albumin 3.4 g/dL (3.5-5.0); Albumin Globulin Ratio 1.1 (1.0-2.8); Alkaline Phosphatase 101 U/L (38-126); Aspartate Aminotransferase 26 IU/L (14-36); BUN Creatinine Ratio 24.5 (6-22); Bilirubin Total 0.4 mg/dL (0.2-1.3); Blood Urea Nitrogen 57 mg/dL (7-17); Calcium 10.3 mg/dL (8.4-10.2); Carbon Dioxide 25 mmol/L (22-32); Chloride 106 mmol/L (98-107); Estimated Glomerular Filt Rate 20 mL/min (>60); Globulin 3.2 g/dL (1.7-4.1); Glucose 108 mg/dL (80-110); HEMOLYSIS < 15 (0-50); Potassium 3.9 mmol/L (3.4-5.1); Sodium 138 mmol/L (137-145); Total Protein 6.6 g/dL (6.3-8.2)
== END ==
PROVIDERS: Family Provider Registered Nurse; PCP Nurse Practitioner Family; Visit Provider Nurse Practitioner
DX: R41.0 Disorientation, unspecified (principal); F30.9 Manic episode, unspecified
CPT/HCPCS: 80053

== ENCOUNTER 2023-12-08 11:38 | Inpatient (IN) | payer MEDICARE, OTHER, MEDICAID, SELFPAY ==
[2023-12-08] VITALS (9 sets, daily range): BP systolic 133–163; BP diastolic 65–79; PULSE 71–87; RESP 12–18; TEMP 36.1–36.4; O2SAT 93–98; BMI 38.9
--- NOTE | 2023-12-08 11:56 | DI.RAD.S_ITS ---
PROCEDURE: XR KNEE LT 1TO2V INDICATIONS: pain after fall TECHNIQUE: 2 views of the knee were acquired. COMPARISON: [facility], CR, XR ANKLE RT 2V, 12/08/2023, 11:59. FINDINGS: Bones: A comminuted, moderately displaced, moderately angulated fracture of the distal femur can be seen, superior to the level of the arthroplasty hardware appear Soft tissues: Soft tissue swelling is seen. IMPRESSION: Distal femur fracture, with moderate angulation and moderate displacement. Dictated by: Skip Yang M.D. on 12/08/2023 at 11:35 Approved by: Skip Yang M.D. on 12/08/2023 at 11:36
--- NOTE | 2023-12-08 11:57 | DI.RAD.S_ITS ---
PROCEDURE: XR ANKLE RT 2V INDICATIONS: pain after fall TECHNIQUE: 2 views of the ankle were acquired. COMPARISON: None. FINDINGS: Bones: There is a potential fracture seen involving the distal fibula. Soft tissues: Generalized soft tissue swelling is seen. Atherosclerotic calcification is noted. IMPRESSION: Potential distal fibular fracture. Differential diagnosis includes artifact. Please correlate with focal tenderness. If clinically appropriate, please consider a follow-up CT. Dictated by: Skip Yang M.D. on 12/08/2023 at 11:37 Approved by: Skip Yang M.D. on 12/08/2023 at 11:38
--- NOTE | 2023-12-08 12:27 | DI.RAD.S_ITS ---
PROCEDURE: XR FEMUR LT MIN 2V INDICATIONS: distal femur fracture TECHNIQUE: 2 views of the femur were acquired. COMPARISON: [facility], CR, XR ANKLE RT 2V, 12/08/2023, 11:59. [facility], CR, XR KNEE LT 1TO2V, 12/08/2023, 11:59. FINDINGS: Bones: Distal femur fracture is again seen. No more proximal fracture is seen. Knee arthroplasty hardware is seen. Soft tissues: No suspicious soft tissue calcifications or masses. Atherosclerotic calcification is noted. IMPRESSION: Distal femur fracture, without a more proximal fracture identified. Dictated by: Skip Yang M.D. on 12/08/2023 at 12:15 Approved by: Skip Yang M.D. on 12/08/2023 at 12:17
--- NOTE | 2023-12-08 12:36 | ED.LOWEXIN ---
HPI - Extremity Injury (Lower) General Chief Complaint: Extremity Injury, Lower Stated Complaint: Fall Time Seen by Provider: 12/08/23 11:52 Source: patient and EMS Mode of arrival: EMS History of Present Illness HPI Narrative: Patient is an 83-year-old female. At baseline has mobility issues and uses a walker. States she can only walk about 50 ft without needing to sit down. This is because of stamina issues. She also has quite a bit of balance issues due to a ?brain injury? states that this morning she got up to go have a bowel movement. She used her walker. She only had to go about 10 ft. This is something that she does on a daily basis. Had no problem getting to the toilet. Had a normal bowel movement. She does need help with cleaning up afterwards. The nursing staff came in to help her. Patient states she did spend an extended period of time standing which made her very fatigued. She was walking back to the bed with her walker states she lost her balance and fell forward onto both of her knees and then fell backwards. She reports left knee pain and right ankle pain. No other injuries from the event. Did not hit her head. No loss of consciousness. Related Data Home Medications Medication Instructions Recorded Confirmed fluoxetine 10 mg capsule (Prozac) 10 mg PO QPM ##0 05/06/10 [GLUCOSAMINE/CHONDROI] PO BID ##0 11/27/17 acetaminophen 500 mg tablet 500 mg PO PRN PRN ##0 11/27/17 calcium carbonate 500 mg-vitamin PO QDAY ##0 11/27/17 D3 5 mcg (200 unit) tablet (Oyster Shell Calcium-Vitamin D3) cyanocobalamin (vitamin B-12) 1,000 mcg PO QDAY ##0 11/27/17 1,000 mcg tablet,extended release docusate sodium 100 mg capsule 100 mg PO BID ##0 11/27/17 levothyroxine 112 mcg tablet 0.112 mg PO QAM ##0 11/27/17 loratadine 10 mg tablet 10 mg PO QDAY ##0 11/27/17 multivitamin (Multiple Vitamins 1 tab PO QDAY ##0 11/27/17 tablet) primidone 250 mg tablet PO SEE INSTRUCTIONS ##0 11/27/17 psyllium husk 0.52 gram capsule 0.52 gm PO QID ##0 11/27/17 (Metamucil) sennosides 8.6 mg-docusate sodium 1 tab PO BIDP PRN ##0 11/27/17 50 mg tablet (Senna with Docusate Sodium) triamcinolone acetonide 55 mcg ##0 11/27/17 nasal spray aerosol (Nasacort) vit C,X-Hq-csgejh-lutein-zeaxan 60 1 cap PO QPM ##0 11/27/17 mg-13.5 mg-15 mg-2 mg-6 mg capsule (Ocuvite Lutein and Zeaxanthin) diphenhydramine HCl 25 mg tablet 25 mg PO QPM ##0 12/02/17 (Benadryl Allergy) Previous Rx's Medication Instructions Recorded carvedilol 25 mg tablet (Coreg) 25 mg PO BID 30 days #0 tabs 11/29/17 gabapentin 300 mg capsule 300 mg PO HS 30 days #0 caps 11/29/17 (Neurontin) prednisone 10 mg tablet 10 mg PO AMCC #20 tabs 11/29/17 sulfamethoxazole 800 1 tab PO Q12H #20 tabs 07/08/23 mg-trimethoprim 160 mg tablet (Bactrim DS) Allergies Allergy/AdvReac Type Severity Reaction Status Date / Time ampicillin [AMPICILLIN] Allergy Unknown Swelling Verified 11/01/23 10:30 of Lip/Tongue/Throat adhesive tape Allergy Hives Verified 11/01/23 10:30 latex Allergy Hives Verified 11/01/23 10:30 lactose AdvReac Diarrhea Verified 11/01/23 10:30 NSAIDS (Non-Steroidal AdvReac Verified 11/01/23 10:30 Anti-Inflamma Review of Systems Constitutional Constitutional: Reports system reviewed and no additional complaints, except as documented Respiratory Respiratory: Reports system reviewed and no additional complaints, except as documented Gastrointestinal Gastrointestinal: Reports system reviewed and no additional complaints, except as documented Musculoskeletal Musculoskeletal: Reports system reviewed and no additional complaints, except as documented Integumentary/Breasts Skin/Breast: Reports system reviewed and no additional complaints, except as documented Neurologic Neurologic: Reports system reviewed and no additional complaints, except as documented Patient History Medical History Parathyroid abnormality Hypothyroidism (acquired) Social History Smoking Status: Never smoker Smoking Status: Never smoker alcohol intake frequency: holidays/special occasions only Substance Use Type: does not use Exam Initial Vital Signs Initial Vital Signs: Vital Signs Pulse Rate 87 12/08/23 11:48 Pulse Oximetry 97 12/08/23 11:48 Resp Effort & Inspection: normal respiratory effort Cardio Rate: regular rate Skin Other: Superficial abrasion to the anterior portion of the left knee Extrem Other: Patient does have discomfort to the lateral malleolus. Also discomfort to the left knee. Unable to lift her leg. Unable to flex and extend her knee. Procedures Orthopedic Splinting/Casting Injury #1: Side: right Lower Extremity Injury Location: ankle Lower Extremity Immobilizer: boot orthosis Post splinting neuro exam: no change Post splinting vascular exam: no change Placed by: Nursing Injury #2: Side: left Lower Extremity Injury Location: knee Lower Extremity Immobilizer: knee immobilizer Post splinting neuro exam: no change Post splinting vascular exam: no change Placed by: Nursing Course Orders Ordered: ED Orders 12/08/23 11:56 XR knee LT 3V Stat 12/08/23 11:57 XR ankle RT min 3V Stat 12/08/23 12:27 XR femur LT min 2V Stat 12/08/23 12:51 Consult to Orthopedic Surgery Stat 12/08/23 13:35 Basic Metabolic Panel Stat Complete Blood Count AUTO DIFF Stat Discontinued Medications Morphine Sulfate (Morphine 4 Mg/Ml Inj) 4 mg IV NOW ONE Stop: 12/08/23 12:55 Last Admin: 12/08/23 13:31 Dose: 4 mg Documented By: MATIAS Vital Signs Vital signs: Vital Signs - 8 hr 12/08/23 11:48 12/08/23 11:49 12/08/23 11:49 Temperature Pulse Rate 87 86 Respiratory Rate Blood Pressure 163/79 H Pulse Oximetry 97 96 Oxygen Delivery Method 12/08/23 11:52 12/08/23 12:00 12/08/23 12:00 Temperature 97.6 F Pulse Rate 83 80 Respiratory Rate 18 Blood Pressure 163/79 H 148/72 H Pulse Oximetry 97 93 Oxygen Delivery Method Room Air 12/08/23 12:30 12/08/23 12:30 Temperature Pulse Rate 83 Respiratory Rate Blood Pressure 152/75 H Pulse Oximetry 98 Oxygen Delivery Method MDM - Extremity Injury (Lower) Lab Data Attestation: I reviewed the patient's lab results. 12/08/23 13:35 12/08/23 13:35 Labs: Lab Results 12/08/23 Range/Units 13:35 WBC 11.3 H (4.5-11.0) X10^3/uL RBC 3.00 L (4.0-5.2) X10^6/uL Hgb 10.3 L (12.0-16.0) g/dL Hct 30.9 L (36-46) % MCV 102.7 H (80-100) fL MCH 34.2 H (26-34) PG MCHC 33.3 (30-36) % RDW 14.2 (11.6-14.8) % Plt Count 219 (150-400) X10^3/uL Neut % (Auto) 84.7 H (50-75) % Lymph % (Auto) 7.4 L (25-40) % [place] % (Auto) 5.9 (3-14) % Eos % (Auto) 1.4 L (2-4) % Baso % (Auto) 0.6 (0-2) % Neut # (Auto) 9500 H (8116-2035) /uL Lymph # (Auto) 800 L (5795-7714) /uL [place] # (Auto) 700 (0-900) /uL Eos # (Auto) 200 (0-450) /uL Baso # (Auto) 100 (0-100) /uL Sodium 137 (137-145) mmol/L Potassium 4.0 (3.4-5.1) mmol/L Chloride 104 (98-107) mmol/L Carbon Dioxide 26 (22-32) mmol/L BUN 56 H (7-17) mg/dL Creatinine 2.09 H (0.52-1.04) mg/dL Estimated GFR 23 L (>60) mL/min BUN/Creatinine Ratio 26.8 H (6-22) Glucose 119 H (80-110) mg/dL Calcium 11.2 H (8.4-10.2) mg/dL Imaging Data Extremity x-ray #1: Radiologist's Impression: PROCEDURE: XR KNEE LT 1TO2V INDICATIONS: pain after fall TECHNIQUE: 2 views of the knee were acquired. COMPARISON: [facility], CR, XR ANKLE RT 2V, 12/08/2023, 11:59. FINDINGS: Bones: A comminuted, moderately displaced, moderately angulated fracture of the distal femur can be seen, superior to the level of the arthroplasty hardware appear Soft tissues: Soft tissue swelling is seen. IMPRESSION: Distal femur fracture, with moderate angulation and moderate displacement. Extremity x-ray #2: Radiologist's Impression: PROCEDURE: XR ANKLE RT 2V INDICATIONS: pain after fall TECHNIQUE: 2 views of the ankle were acquired. COMPARISON: None. FINDINGS: Bones: There is a potential fracture seen involving the distal fibula. Soft tissues: Generalized soft tissue swelling is seen. Atherosclerotic calcification is noted. IMPRESSION: Potential distal fibular fracture. Differential diagnosis includes artifact. Please correlate with focal tenderness. If clinically appropriate, please consider a follow-up CT. Extremity x-ray #3: Radiologist's Impression: PROCEDURE: XR FEMUR LT MIN 2V INDICATIONS: distal femur fracture TECHNIQUE: 2 views of the femur were acquired. COMPARISON: [facility], CR, XR ANKLE RT 2V, 12/08/2023, 11:59. [facility], CR, XR KNEE LT 1TO2V, 12/08/2023, 11:59. FINDINGS: Bones: Distal femur fracture is again seen. No more proximal fracture is seen. Knee arthroplasty hardware is seen. Soft tissues: No suspicious soft tissue calcifications or masses. Atherosclerotic calcification is noted. IMPRESSION: Distal femur fracture, without a more proximal fracture identified. MDM Narrative Medical decision making narrative: Patient does have a left periprosthetic femur fracture. Potentially has a right distal fibula fracture. No other injuries from the event. Discussed the case with Dr. Negron on-call for Orthopedic surgery who requested that the patient be admitted to medicine service. I then discussed the case with Dr. lobato who will admit for further evaluation treatment. Discharge Plan Departure Patient Disposition: Admitted As Inpatient Clinical Impression: Closed fracture of distal end of left femur, Distal radius fracture, right, Abrasion of skin Admit Date/Time: 12/08/23 14:06 Admit Provider: Antwan Lobato
[2023-12-08] MEDS: MORPHINE 4 MG/ML INJ IV ×3 (13:31→21:26)
[2023-12-08 13:45] LABS: Add Manual Diff / Slide Review NO; Basophils Absolute Auto 100 /uL (0-100); Basophils Percent Auto 0.6 % (0-2); Eosinophils Absolute Auto 200 /uL (0-450); Eosinophils Percent Auto 1.4 % (2-4); Hematocrit 30.9 % (36-46); Hemoglobin 10.3 g/dL (12.0-16.0); Lymphocytes Absolute Auto 800 /uL (1100-4500); Lymphocytes Percent Auto 7.4 % (25-40); Mean Corpuscular HGB Conc 33.3 % (30-36); Mean Corpuscular Hemoglobin 34.2 PG (26-34); Mean Corpuscular Volume 102.7 fL (80-100); Monocytes Absolute Auto 700 /uL (0-900); Monocytes Percent Auto 5.9 % (3-14); Neutrophils Absolute Auto 9500 /uL (1500-7000); Neutrophils Percent Auto 84.7 % (50-75); Platelet Count 219 X10^3/uL (150-400); Red Cell Distribution Width 14.2 % (11.6-14.8); White Blood Cell Count 11.3 X10^3/uL (4.5-11.0)
[2023-12-08 13:56] LABS: BUN Creatinine Ratio 26.8 (6-22); Blood Urea Nitrogen 56 mg/dL (7-17); Calcium 11.2 mg/dL (8.4-10.2); Carbon Dioxide 26 mmol/L (22-32); Chloride 104 mmol/L (98-107); Estimated Glomerular Filt Rate 23 mL/min (>60); Glucose 119 mg/dL (80-110); HEMOLYSIS < 15 (0-50); Sodium 137 mmol/L (137-145)
--- NOTE | 2023-12-08 14:04 | PM.HP.1 ---
History of Present Illness History of Present Illness Date Patient Seen: 12/08/23 Time Patient Seen: 14:04 Date of Onset of Symptoms: 12/08/23 Chief complaint: Fall Narrative: This is an 83-year-old lady who lives at [facility]. She has multiple medical problems including a history of rheumatoid arthritis and impaired renal function. She was transferring today when she fell and noted the acute onset of left knee pain. She does have a history of a left total knee arthroplasty which was done sometime prior to 2010. She notes that a rheumatoid has been fairly stable. She has a history of breast cancer which has been managed with oral medications. She has been followed long-term for impaired renal function and has specifically stated that she is not interested in dialysis. She has a history of a prior left ankle injury and fracture. She notes minimal right ankle pain and substantial left knee pain. [facility] Medical History Parathyroid abnormality Hypothyroidism (acquired) Social History Smoking Status: Never smoker Meds Home Medications and Allergies Home Medications Medication Instructions Recorded Confirmed Type fluoxetine 10 mg capsule (Prozac) 10 mg PO QPM ##0 05/06/10 History [GLUCOSAMINE/CHONDROI] PO BID ##0 11/27/17 History acetaminophen 500 mg tablet 500 mg PO PRN PRN ##0 11/27/17 History calcium carbonate 500 mg-vitamin PO QDAY ##0 11/27/17 History D3 5 mcg (200 unit) tablet (Oyster Shell Calcium-Vitamin D3) cyanocobalamin (vitamin B-12) 1,000 mcg PO QDAY ##0 11/27/17 History 1,000 mcg tablet,extended release docusate sodium 100 mg capsule 100 mg PO BID ##0 11/27/17 History levothyroxine 112 mcg tablet 0.112 mg PO QAM ##0 11/27/17 History loratadine 10 mg tablet 10 mg PO QDAY ##0 11/27/17 History multivitamin (Multiple Vitamins 1 tab PO QDAY ##0 11/27/17 History tablet) primidone 250 mg tablet PO SEE INSTRUCTIONS ##0 11/27/17 History psyllium husk 0.52 gram capsule 0.52 gm PO QID ##0 11/27/17 History (Metamucil) sennosides 8.6 mg-docusate sodium 1 tab PO BIDP PRN ##0 11/27/17 History 50 mg tablet (Senna with Docusate Sodium) triamcinolone acetonide 55 mcg ##0 11/27/17 History nasal spray aerosol (Nasacort) vit C,Z-Od-lovxvo-lutein-zeaxan 60 1 cap PO QPM ##0 11/27/17 History mg-13.5 mg-15 mg-2 mg-6 mg capsule (Ocuvite Lutein and Zeaxanthin) carvedilol 25 mg tablet (Coreg) 25 mg PO BID 30 days #0 tabs 11/29/17 Rx gabapentin 300 mg capsule 300 mg PO HS 30 days #0 caps 11/29/17 Rx (Neurontin) prednisone 10 mg tablet 10 mg PO AMCC #20 tabs 11/29/17 Rx diphenhydramine HCl 25 mg tablet 25 mg PO QPM ##0 12/02/17 History (Benadryl Allergy) sulfamethoxazole 800 1 tab PO Q12H #20 tabs 07/08/23 Rx mg-trimethoprim 160 mg tablet (Bactrim DS) Allergies Allergy/AdvReac Type Severity Reaction Status Date / Time ampicillin [AMPICILLIN] Allergy Unknown Swelling Verified 11/01/23 10:30 of Lip/Tongue/Throat adhesive tape Allergy Hives Verified 11/01/23 10:30 latex Allergy Hives Verified 11/01/23 10:30 lactose AdvReac Diarrhea Verified 11/01/23 10:30 NSAIDS (Non-Steroidal AdvReac Verified 11/01/23 10:30 Anti-Inflamma Review of Systems Review of Systems Narrative: She did not notice any cardiac problems was not lightheaded short of breath or have other symptoms prior to the fall. She does have some bilateral lower extremity numbness which is chronic. Exam Vital Signs (past 8 hours): - 12/08/23 11:48 12/08/23 11:49 12/08/23 11:49 Temperature Pulse Rate 87 86 Respiratory Rate Blood Pressure 163/79 H Pulse Oximetry 97 96 Oxygen Delivery Method 12/08/23 11:52 12/08/23 12:00 12/08/23 12:00 Temperature 97.6 F Pulse Rate 83 80 Respiratory Rate 18 Blood Pressure 163/79 H 148/72 H Pulse Oximetry 97 93 Oxygen Delivery Method Room Air 12/08/23 12:30 12/08/23 12:30 Temperature Pulse Rate 83 Respiratory Rate Blood Pressure 152/75 H Pulse Oximetry 98 Oxygen Delivery Method Oxygen Delivery Method Room Air Narrative Exam Narrative: She is resting comfortably in bed she is alert she is oriented incompletely appropriate with discussion, core regular rate and rhythm, lungs clear, abdomen obese, left lower extremity position of external rotation some shortening of the left femur, minimal abrasion on the anterior knee, well-healed bilateral knee incisions, mild numbness in bilateral lower extremities able to fire toe flexors and extensors Objective Labs 12/08/23 13:35 12/08/23 13:35 Labs: Laboratory Results - last 24 hr 12/08/23 13:35 WBC 11.3 H RBC 3.00 L Hgb 10.3 L Hct 30.9 L MCV 102.7 H MCH 34.2 H MCHC 33.3 RDW 14.2 Plt Count 219 Neut % (Auto) 84.7 H Lymph % (Auto) 7.4 L [place] % (Auto) 5.9 Eos % (Auto) 1.4 L Baso % (Auto) 0.6 Neut # (Auto) 9500 H Lymph # (Auto) 800 L [place] # (Auto) 700 Eos # (Auto) 200 Baso # (Auto) 100 Sodium 137 Potassium 4.0 Chloride 104 Carbon Dioxide 26 BUN 56 H Creatinine 2.09 H Estimated GFR 23 L BUN/Creatinine Ratio 26.8 H Glucose 119 H Calcium 11.2 H x-rays show a left periprosthetic femur fracture in the supracondylar region left total knee arthroplasty no evidence of loosening, prosthesis is cruciate retaining. Fracture is displaced and slightly comminuted and a fairly distal fracture. Assessment & Plan Assessment and plan (1) Fracture, femur, distal: Status: Acute (2) History of total left knee replacement: Status: Acute (3) Closed fracture of distal end of left femur: Status: Acute (4) Renal failure syndrome: Status: Acute Assessment & Plan narrative: She has a comminuted left distal femur fracture. My recommendation is that she consider and/or proceed with open reduction internal fixation likely with a retrograde nail. She does have impaired kidney function. She has multiple medical problems. She is alert oriented and appropriate. She attempted to call her daughters to discuss further with them her current situation. She also ask my thoughts about conservative treatment and/or hospice. I told her that I think it is extremely unlikely that we will be able to adequately stabilize her left leg with any nonoperative management that would allow her comfortable bed mobility and/or transfer out of bed to a wheelchair. I explained to her that potentially we could get her on the surgery schedule for tomorrow with Dr. Banks at about 1pm. She is going to be admitted to the medical service and we will discuss her medical status more with Dr. Lobato. We will plan to keep her NPO past midnight. A tentative surgery scheduling sheet was filled out and given to the charge nurse posted in the operating room.
[2023-12-08] MEDS: SODIUM CHLORIDE 0.9% 1,000 ML 75 ML IV (16:11)
[2023-12-08] MEDS: OXYCODONE IR 5 MG TABLET PO ×2 (16:17→21:03)
[2023-12-08] MEDS: ACETAMINOPHEN 325 MG TABLET 650 MG PO (16:18)
--- NOTE | 2023-12-08 17:26 | P.HP_ITS ---
History of Present Illness History of Present Illness Date Patient Seen: 12/08/23 Time Patient Seen: 17:26 Chief complaint: Fall Narrative: This is an 83 year old female, resident of [facility], who presented after a ground level fall from her living facility. She has a PMH of breast cancer, ? thyroid cancer, hyperparathyroidism, HTN, bipolar disorder, and rheumatoid arthritis. She was found to have a distal left femur fracture on evaluation in the ER. She denies any recent chest pain, shortness of breath, nausea, vomiting, fever or chills. She denies any dizziness prior to her fall. She cannot stand much longer than a minute at baseline, she was in the restroom getting cleaned after a bowel movement when she became exhausted and fell to her knees. She has been in the process of discussing hospice with her family, due to her declining function over the recent years and poor quality of life. Orthopedics plans to provide operative interventions tomorrow, admitted to medicine for further ongoing management. [facility] Medical History Rheumatoid arthritis Parathyroid abnormality Hypothyroidism (acquired) Surgical History H/O parathyroidectomy Social History household members: none Smoking Status: Never smoker Meds Home Medications and Allergies Home Medications Medication Instructions Recorded Confirmed Type acetaminophen 500 mg tablet 1,000 mg PO Q8H PRN Pain (Scale 11/27/17 12/08/23 History Score 4-6) ##0 docusate sodium 100 mg capsule 100 mg PO BID ##0 11/27/17 12/08/23 History loratadine 10 mg tablet 10 mg PO QDAY ##0 11/27/17 12/08/23 History triamcinolone acetonide 55 mcg 1 spray intranasal QAM ##0 11/27/17 12/08/23 History nasal spray aerosol (Nasacort) anastrozole 1 mg tablet 1 mg PO QAM 12/08/23 12/08/23 History artificial tears solution eye drops 1 drp ophthalmic (eye) QID 12/08/23 12/08/23 History ascorbic acid (vitamin C) 250 mg 250 mg PO 3XW 12/08/23 12/08/23 History tablet biotin 10 mg tablet 10 mg PO DAILY 12/08/23 12/08/23 History calcium carb-vit D3-minerals 600 1 tab PO BID 12/08/23 12/08/23 History mg calcium-400 unit tablet cholecalciferol (vitamin D3) 125 5,000 unit QAM 12/08/23 12/08/23 History mcg (5,000 unit) capsule d-mannose 500 mg capsule 500 mg PO QAM 12/08/23 12/08/23 History docusate sodium 100 mg tablet 100 mg PO BID 12/08/23 12/08/23 History ferrous gluconate 324 mg (38 mg 324 mg PO USEASDIRECTD 12/08/23 12/08/23 History iron) tablet furosemide 20 mg tablet 40 mg PO DAILY 12/08/23 12/08/23 History gabapentin 100 mg capsule 200 mg PO BID 12/08/23 12/08/23 History hydralazine 25 mg tablet 25 mg PO 4XD 12/08/23 12/08/23 History ketoconazole 2 % shampoo 1 applic topical QMWF 12/08/23 12/08/23 History lactase 5,000 unit/mL oral drops 3 unit PO TID 12/08/23 12/08/23 History levothyroxine 112 mcg tablet 125 mcg PO DAILY 12/08/23 12/08/23 History melatonin 3 mg capsule 3 mg PO BEDTIME PRN Insomnia 12/08/23 12/08/23 History mupirocin 2 % topical ointment 1 applic topical QAM PRN Skin 12/08/23 12/08/23 History Irritation nifedipine 30 mg tablet,extended 90 mg PO QAM 12/08/23 12/08/23 History release 24 hr oxycodone 5 mg tablet 5 mg PO Q4HR PRN Pain (Scale Score 12/08/23 12/08/23 History 4-6) phenazopyridine 95 mg tablet 95 mg PO TID PRN burning 12/08/23 12/08/23 History polyethylene glycol 3350 17 gram 17 g PO QAM 12/08/23 12/08/23 History oral powder packet (Miralax) primidone 250 mg tablet 375 mg PO QPM 12/08/23 12/08/23 History sennosides 8.6 mg tablet (senna) 8.6 mg PO BID 12/08/23 12/08/23 History sodium chloride 0.65 % nasal spray 1 spray intranasal QAM PRN Dry 12/08/23 12/08/23 History aerosol (Saline Nasal) Nasal Passages Allergies Allergy/AdvReac Type Severity Reaction Status Date / Time ampicillin [AMPICILLIN] Allergy Unknown Swelling Verified 11/01/23 10:30 of Lip/Tongue/Throat adhesive tape Allergy Hives Verified 11/01/23 10:30 latex Allergy Hives Verified 11/01/23 10:30 baclofen AdvReac Confusion Verified 12/08/23 18:01 lactose AdvReac Diarrhea Verified 11/01/23 10:30 NSAIDS (Non-Steroidal AdvReac Verified 11/01/23 10:30 Anti-Inflamma Review of Systems Review of Systems Narrative: All other systems reviewed with the patient and are negative unless otherwise stated. Exam Vital Signs (past 8 hours): - 12/08/23 11:48 12/08/23 11:49 12/08/23 11:49 Temperature Pulse Rate 87 86 Respiratory Rate Blood Pressure 163/79 H Pulse Oximetry 97 96 Oxygen Delivery Method Oxygen Flow Rate 12/08/23 11:52 12/08/23 12:00 12/08/23 12:00 Temperature 97.6 F Pulse Rate 83 80 Respiratory Rate 18 Blood Pressure 163/79 H 148/72 H Pulse Oximetry 97 93 Oxygen Delivery Method Room Air Oxygen Flow Rate 12/08/23 12:30 12/08/23 12:30 12/08/23 14:21 Temperature 97.6 F Pulse Rate 83 79 Respiratory Rate 16 Blood Pressure 152/75 H 157/65 H Pulse Oximetry 98 94 Oxygen Delivery Method Room Air Oxygen Flow Rate 12/08/23 15:00 Temperature 96.9 F L Pulse Rate 78 Respiratory Rate 16 Blood Pressure 153/71 H Pulse Oximetry 96 Oxygen Delivery Method Oxygen Flow Rate 0 Oxygen Delivery Method Room Air Oxygen Flow Rate 0 Narrative Exam Narrative: General:? Patient is well developed, obese with BMI 38.9. in no distress at this time though mild discomfort due to apparent pain. Chest:? Normal AP diameter and contour without kyphoscoliosis, no tachypnea, equal chest rise bilaterally. Lungs:? CTA b/l no wheezing rhonchi or rales. Cardio:?RRR no m/r/g. Abdomen: S NT ND. Neuro:? Alert and orientated x3,? sensation to touch intact in all extremities, no gross deficits noted of cranial nerves. Psych:? Patient has a well-kept appearance, appropriate affect, mental status attitude thought context and judgment are appropriate for age. Objective Labs 12/08/23 13:35 12/08/23 13:35 Labs: Laboratory Results - last 24 hr 12/08/23 13:35 WBC 11.3 H RBC 3.00 L Hgb 10.3 L Hct 30.9 L MCV 102.7 H MCH 34.2 H MCHC 33.3 RDW 14.2 Plt Count 219 Neut % (Auto) 84.7 H Lymph % (Auto) 7.4 L [place] % (Auto) 5.9 Eos % (Auto) 1.4 L Baso % (Auto) 0.6 Neut # (Auto) 9500 H Lymph # (Auto) 800 L [place] # (Auto) 700 Eos # (Auto) 200 Baso # (Auto) 100 Sodium 137 Potassium 4.0 Chloride 104 Carbon Dioxide 26 BUN 56 H Creatinine 2.09 H Estimated GFR 23 L BUN/Creatinine Ratio 26.8 H Glucose 119 H Calcium 11.2 H Assessment & Plan Assessment & Plan narrative: 1. Acute pathologic left distal femur fracture - management per orthopedic surgery, plan for operative interventions tomorrow. - discussed post - operative management with patient. Her main goals are to focus on comfort. She does not wish to go through the pain of rehabilitation for a chance at resuming to her already diminished quality of life. -discusssed above with orthopedics provider, plan would be for operative management for pain / comfort and then plan for discharge with hospice. - pain control with as needed tylenol and opiate therapies. 2. hypercalcemia - mild, will check PTH level given her history. May be slightly dehydrated as well so will continue light IV fluids. 3. hypothyroidism - check TSH - continue home levothyroixine 4. HTN - continue home medications including furosemide and nifedipine and hydralazine. 5. CKD stage IV - appears near baseline creatinine likely around 2.1. Was as high as 2.3 a few weeks ago. 6. Bipolar disorder - continue home primidone without change Code: DNR, surrogate is patient's daughter Dispo: Admitted inpatient, anticipate discharge back to [facility] on hospice. I have utilized all available immediate resources to obtain, update, or review the patient's current medications. Discussed with ER provider and orthopedics provider Dr. Negron for additional history and assistance with assessment and plan. I have reviewed patient's presenting imaging, prior and current available labs and documentation. I spent 20 minutes involved in the advanced care planning of this patient. Ideally patient would like to have fracture managed operatively for pain control purposes, then proceed to set up hospice at [facility].
[2023-12-08] MEDS: MELATONIN 3 MG TABLET PO (21:05)
[2023-12-08] MEDS: HYDRALAZINE 25 MG TABLET PO (21:06)
[2023-12-08] MEDS: DOCUSATE 100 MG CAPSULE PO (21:06)
[2023-12-08] MEDS: GABAPENTIN 100 MG CAPSULE 200 MG PO (21:06)
[2023-12-08] MEDS: SENNOSIDES 8.6 MG TABLET PO (21:06)
[2023-12-08] MEDS: PRIMIDONE 50 MG TABLET 375 MG PO (21:11)
[2023-12-09] VITALS (27 sets, daily range): BP systolic 91–159; BP diastolic 45–93; PULSE 67–105; RESP 10–18; TEMP 35.5–36.7; O2SAT 92–98; BMI 38.9
--- NOTE | 2023-12-09 | DI.RAD.S_ITS ---
PROCEDURE: XR FEMUR LT MIN 2V INDICATIONS: LT FEMUR ORIF TECHNIQUE: 14 intraoperative fluoroscopic images of the femur were acquired. COMPARISON: [facility], CR, XR FEMUR LT MIN 2V, 12/08/2023, 12:43. FINDINGS: Intraoperative fluoroscopic images shows internal fixation of previously noted distal femoral shaft fracture with intramedullary dora and surgical screws in place. IMPRESSION: Fluoro guidance was provided intraoperatively for ORIF of distal left femur. Dictated by: Andrew Logan M.D. on 12/10/2023 at 10:52 Approved by: Andrew Logan M.D. on 12/10/2023 at 11:01
[2023-12-09] MEDS: MORPHINE 4 MG/ML INJ IV ×3 (01:02→08:57)
[2023-12-09] MEDS: polyethylene glycoL 3350 17 GM POWD.PACK PO (01:02)
[2023-12-09] MEDS: SODIUM CHLORIDE 0.9% 1,000 ML 75 ML IV (04:33)
[2023-12-09 05:10] LABS: Add Manual Diff / Slide Review NO; Basophils Absolute Auto 100 /uL (0-100); Basophils Percent Auto 0.8 % (0-2); Eosinophils Absolute Auto 200 /uL (0-450); Eosinophils Percent Auto 2.4 % (2-4); Hematocrit 26.7 % (36-46); Lymphocytes Absolute Auto 1000 /uL (1100-4500); Lymphocytes Percent Auto 12.3 % (25-40); Mean Corpuscular HGB Conc 33.8 % (30-36); Mean Corpuscular Hemoglobin 34.7 PG (26-34); Mean Corpuscular Volume 102.8 fL (80-100); Monocytes Absolute Auto 800 /uL (0-900); Neutrophils Absolute Auto 6000 /uL (1500-7000); Neutrophils Percent Auto 74.5 % (50-75); Platelet Count 220 X10^3/uL (150-400); Red Cell Distribution Width 14.2 % (11.6-14.8); White Blood Cell Count 8.1 X10^3/uL (4.5-11.0)
[2023-12-09 05:16] LABS: BUN Creatinine Ratio 25.2 (6-22); Blood Urea Nitrogen 56 mg/dL (7-17); Calcium 10.2 mg/dL (8.4-10.2); Carbon Dioxide 26 mmol/L (22-32); Chloride 103 mmol/L (98-107); Estimated Glomerular Filt Rate 21 mL/min (>60); Glucose 101 mg/dL (80-110); HEMOLYSIS < 15 (0-50); Magnesium 1.7 mg/dL (1.6-2.3); Potassium 4.1 mmol/L (3.4-5.1); Sodium 135 mmol/L (137-145)
[2023-12-09 05:50] LABS: TSH w/ Reflex to FT4 0.25 uIU/mL (0.47-4.68)
[2023-12-09] MEDS: LEVOTHYROXINE 125 MCG TABLET PO (06:09)
[2023-12-09 06:25] LABS: Free T4, Direct Thyroxine 1.06 ng/dL (0.78-2.19)
--- NOTE | 2023-12-09 06:42 | PC.NURSE ---
Pt has been c/o bilater leg pain 6-07/14, declining to be woken up for vitals tonights, v/s did get done during the night but not at a every 4 hours interval. pt refusing to have her compression socks off. she also is concerned that there might be something wrong with her left ankles as she states she forgot to mentioned that to the doctor. pt normally uses a cpap at night which is still at her facility, pt tried using the hospital cpad but wasn't able to tolerate it. Pt was placed on 2L NC. b/p this am lower, pt has been receiving Morphine IVP frequently throughout the night.
[2023-12-09] MEDS: NIFEdipine 30 MG TAB ER 90 MG PO (08:55)
[2023-12-09] MEDS: DOCUSATE 100 MG CAPSULE PO ×2 (08:56→22:14)
[2023-12-09] MEDS: LORATADINE 10 MG TABLET PO (08:56)
[2023-12-09] MEDS: SENNOSIDES 8.6 MG TABLET PO (08:56)
[2023-12-09] MEDS: PRIMIDONE 50 MG TABLET 250 MG PO (08:56)
[2023-12-09] MEDS: HYDRALAZINE 25 MG TABLET PO (08:56)
[2023-12-09] MEDS: GABAPENTIN 100 MG CAPSULE 200 MG PO ×2 (08:56→22:14)
[2023-12-09] MEDS: FUROSEMIDE 20 MG TABLET 40 MG PO (08:56)
[2023-12-09] MEDS: POLYVINYL ALCOHOL DROPS 1 DROPS EYE-BOTH (10:31)
[2023-12-09] MEDS: MAGNESIUM CHLORIDE 64 MG TABLET 128 MG PO (10:32)
--- NOTE | 2023-12-09 10:32 | PM.PN.1 ---
Subjective Subjective Interval history: 83 F with distal femur fracture. Pending operative interventions today. Her pain control is better this morning, but does make her a bit foggy. Exam Vital Signs (past 8 hours): - 12/09/23 03:00 12/09/23 05:00 12/09/23 07:38 Temperature 97.1 F L Pulse Rate 79 Respiratory Rate 12 Blood Pressure 103/56 L Pulse Oximetry 94 97 97 Oxygen Delivery Method Nasal Cannula Nasal Cannula Oxygen Flow Rate 1 1 Fraction of Inspired Oxygen 24 12/09/23 08:00 12/09/23 08:41 12/09/23 08:56 Temperature 97.2 F L Pulse Rate 84 84 Respiratory Rate 18 Blood Pressure 122/93 H 122/93 H Pulse Oximetry 96 96 Oxygen Delivery Method Room Air Oxygen Flow Rate 0 Fraction of Inspired Oxygen Fraction of Inspired Oxygen 24 SaO2/FiO2 Ratio 404 Oxygen Delivery Method Room Air Oxygen Flow Rate 0 Narrative Exam Narrative: General:? Patient is well developed, obese with BMI 38.9. in no distress at this time though mild discomfort due to apparent pain. Chest:? Normal AP diameter and contour without kyphoscoliosis, no tachypnea, equal chest rise bilaterally. Lungs:? CTA b/l no wheezing rhonchi or rales. Cardio:?RRR no m/r/g. Abdomen: S NT ND. Neuro:? Alert and orientated x3,? sensation to touch intact in all extremities, no gross deficits noted of cranial nerves. Psych:? Patient has a well-kept appearance, appropriate affect, mental status attitude thought context and judgment are appropriate for age. Objective Labs 12/09/23 04:35 12/09/23 04:35 Labs: Laboratory Results - last 24 hr 12/08/23 12/09/23 13:35 04:35 WBC 11.3 H 8.1 RBC 3.00 L 2.60 L Hgb 10.3 L 9.0 L Hct 30.9 L 26.7 L MCV 102.7 H 102.8 H MCH 34.2 H 34.7 H MCHC 33.3 33.8 RDW 14.2 14.2 Plt Count 219 220 Neut % (Auto) 84.7 H 74.5 Lymph % (Auto) 7.4 L 12.3 L [place] % (Auto) 5.9 10.0 Eos % (Auto) 1.4 L 2.4 Baso % (Auto) 0.6 0.8 Neut # (Auto) 9500 H 6000 Lymph # (Auto) 800 L 1000 L [place] # (Auto) 700 800 Eos # (Auto) 200 200 Baso # (Auto) 100 100 Sodium 137 135 L Potassium 4.0 4.1 Chloride 104 103 Carbon Dioxide 26 26 BUN 56 H 56 H Creatinine 2.09 H 2.22 H Estimated GFR 23 L 21 L BUN/Creatinine Ratio 26.8 H 25.2 H Glucose 119 H 101 Calcium 11.2 H 10.2 Magnesium 1.7 TSH 0.25 L Free T4 1.06 PFSH Medical History Rheumatoid arthritis Parathyroid abnormality Hypothyroidism (acquired) Surgical History H/O parathyroidectomy Social History household members: none Smoking Status: Never smoker Assessment & Plan Assessment & Plan narrative: 1. Acute pathologic left distal femur fracture - management per orthopedic surgery, plan for operative interventions today - discussed post - operative management with patient. Her main goals are to focus on comfort. She does not wish to go through the pain of rehabilitation for a chance at resuming to her already diminished quality of life. -discusssed above with orthopedics provider, plan would be for operative management for pain / comfort and then plan for discharge with hospice. - pain control with as needed tylenol and opiate therapies. 2. hypercalcemia - mild, improved with fluids today. May be slightly dehydrated as well so will continue light IV fluids. 3. hypothyroidism - check TSH - continue home levothyroixine 4. HTN - continue home medications including furosemide and nifedipine and hydralazine. 5. CKD stage IV - appears near baseline creatinine likely around 2.1. Was as high as 2.3 a few weeks ago. 2.2 today. 6. Bipolar disorder - continue home primidone without change Code: DNR, surrogate is patient's daughter Dispo: Admitted inpatient, anticipate discharge back to [facility] on hospice. I have utilized all available immediate resources to obtain, update, or review the patient's current medications.
[2023-12-09] MEDS: HYDROMORPHONE 0.5 MG INJ IV (10:39)
--- NOTE | 2023-12-09 10:56 | PM.HP.1 ---
History of Present Illness History of Present Illness Chief complaint: Fall Narrative: 83-year-old female seen along with her son in evaluation for left femur fracture. She had a fall at her facility. She has impaired mobility at baseline. There were discussions already about transitioning to hospice and this episode will unfortunately make that a necessity. Her and her son are much more concerned about pain control then they are about any sort of rehabilitation potential with this fracture. She reports pain in the left thigh. It has been present since the time of injury. It is worsened by any movement and partially alleviated by rest. She denies pain elsewhere COUNT INCLUDES THE [facility] Medical History Rheumatoid arthritis Parathyroid abnormality Hypothyroidism (acquired) Surgical History H/O parathyroidectomy Social History household members: none Smoking Status: Never smoker Meds Home Medications and Allergies Home Medications Medication Instructions Recorded Confirmed Type acetaminophen 500 mg tablet 1,000 mg PO Q8H PRN Pain (Scale 11/27/17 12/08/23 History Score 4-6) ##0 docusate sodium 100 mg capsule 100 mg PO BID ##0 11/27/17 12/08/23 History loratadine 10 mg tablet 10 mg PO QDAY ##0 11/27/17 12/08/23 History triamcinolone acetonide 55 mcg 1 spray intranasal QAM ##0 11/27/17 12/08/23 History nasal spray aerosol (Nasacort) anastrozole 1 mg tablet 1 mg PO QAM 12/08/23 12/08/23 History artificial tears solution eye drops 1 drp ophthalmic (eye) QID 12/08/23 12/08/23 History ascorbic acid (vitamin C) 250 mg 250 mg PO 3XW 12/08/23 12/08/23 History tablet biotin 10 mg tablet 10 mg PO DAILY 12/08/23 12/08/23 History calcium carb-vit D3-minerals 600 1 tab PO BID 12/08/23 12/08/23 History mg calcium-400 unit tablet cholecalciferol (vitamin D3) 125 5,000 unit QAM 12/08/23 12/08/23 History mcg (5,000 unit) capsule d-mannose 500 mg capsule 500 mg PO QAM 12/08/23 12/08/23 History docusate sodium 100 mg tablet 100 mg PO BID 12/08/23 12/08/23 History ferrous gluconate 324 mg (38 mg 324 mg PO USEASDIRECTD 12/08/23 12/08/23 History iron) tablet furosemide 20 mg tablet 40 mg PO DAILY 12/08/23 12/08/23 History gabapentin 100 mg capsule 200 mg PO BID 12/08/23 12/08/23 History hydralazine 25 mg tablet 25 mg PO 4XD 12/08/23 12/08/23 History ketoconazole 2 % shampoo 1 applic topical QMWF 12/08/23 12/08/23 History lactase 5,000 unit/mL oral drops 3 unit PO TID 12/08/23 12/08/23 History levothyroxine 112 mcg tablet 125 mcg PO DAILY 12/08/23 12/08/23 History melatonin 3 mg capsule 3 mg PO BEDTIME PRN Insomnia 12/08/23 12/08/23 History mupirocin 2 % topical ointment 1 applic topical QAM PRN Skin 12/08/23 12/08/23 History Irritation nifedipine 30 mg tablet,extended 90 mg PO QAM 12/08/23 12/08/23 History release 24 hr oxycodone 5 mg tablet 5 mg PO Q4HR PRN Pain (Scale Score 12/08/23 12/08/23 History 4-6) phenazopyridine 95 mg tablet 95 mg PO TID PRN burning 12/08/23 12/08/23 History polyethylene glycol 3350 17 gram 17 g PO QAM 12/08/23 12/08/23 History oral powder packet (Miralax) primidone 250 mg tablet 375 mg PO QPM 12/08/23 12/08/23 History sennosides 8.6 mg tablet (senna) 8.6 mg PO BID 12/08/23 12/08/23 History sodium chloride 0.65 % nasal spray 1 spray intranasal QAM PRN Dry 12/08/23 12/08/23 History aerosol (Saline Nasal) Nasal Passages Allergies Allergy/AdvReac Type Severity Reaction Status Date / Time ampicillin [AMPICILLIN] Allergy Unknown Swelling Verified 11/01/23 10:30 of Lip/Tongue/Throat adhesive tape Allergy Hives Verified 11/01/23 10:30 latex Allergy Hives Verified 11/01/23 10:30 baclofen AdvReac Confusion Verified 12/08/23 18:01 lactose AdvReac Diarrhea Verified 11/01/23 10:30 NSAIDS (Non-Steroidal AdvReac Verified 11/01/23 10:30 Anti-Inflamma Review of Systems Review of Systems ROS: Yes All systems reviewed with the patient and are negative except as otherwise documented Exam Vital Signs (past 8 hours): - 12/09/23 03:00 12/09/23 05:00 12/09/23 07:38 Temperature 97.1 F L Pulse Rate 79 Respiratory Rate 12 Blood Pressure 103/56 L Pulse Oximetry 94 97 97 Oxygen Delivery Method Nasal Cannula Nasal Cannula Oxygen Flow Rate 1 1 Fraction of Inspired Oxygen 24 12/09/23 08:00 12/09/23 08:41 12/09/23 08:56 Temperature 97.2 F L Pulse Rate 84 84 Respiratory Rate 18 Blood Pressure 122/93 H 122/93 H Pulse Oximetry 96 96 Oxygen Delivery Method Room Air Oxygen Flow Rate 0 Fraction of Inspired Oxygen Fraction of Inspired Oxygen 24 SaO2/FiO2 Ratio 404 Oxygen Delivery Method Room Air Oxygen Flow Rate 0 Narrative Exam Narrative: Left lower extremity: Sensation intact to light touch in L2 through S1 nerve distributions. Flexes and extends toes. Knee immobilizer in place Const General: cooperative Orientation: alert and awake HENNV Head: normal to inspection Ears: hearing grossly normal bilaterally Eyes General: appearance normal, both eyes and all related structures Neck Neck: normal visual inspection Resp Effort & Inspection: normal respiratory effort and able to speak in complete sentences Cardio Pulses: other (peripheral pulses present) Skin Lesions: no lesions Rashes: no rashes Neuro General: patient alert, patient awake and moves all extremities Psych Appearance: grossly normal Objective Imaging Left femur: My impression: Displaced periprosthetic femur fracture above prior total knee arthroplasty with what appears to be a cruciate retaining femoral component and a well-fixed femoral component Labs 12/09/23 04:35 12/09/23 04:35 Labs: Laboratory Results - last 24 hr 12/08/23 12/09/23 13:35 04:35 WBC 11.3 H 8.1 RBC 3.00 L 2.60 L Hgb 10.3 L 9.0 L Hct 30.9 L 26.7 L MCV 102.7 H 102.8 H MCH 34.2 H 34.7 H MCHC 33.3 33.8 RDW 14.2 14.2 Plt Count 219 220 Neut % (Auto) 84.7 H 74.5 Lymph % (Auto) 7.4 L 12.3 L [place] % (Auto) 5.9 10.0 Eos % (Auto) 1.4 L 2.4 Baso % (Auto) 0.6 0.8 Neut # (Auto) 9500 H 6000 Lymph # (Auto) 800 L 1000 L [place] # (Auto) 700 800 Eos # (Auto) 200 200 Baso # (Auto) 100 100 Sodium 137 135 L Potassium 4.0 4.1 Chloride 104 103 Carbon Dioxide 26 26 BUN 56 H 56 H Creatinine 2.09 H 2.22 H Estimated GFR 23 L 21 L BUN/Creatinine Ratio 26.8 H 25.2 H Glucose 119 H 101 Calcium 11.2 H 10.2 Magnesium 1.7 TSH 0.25 L Free T4 1.06 Assessment & Plan Assessment and plan (1) History of total left knee replacement: Status: Acute (2) Closed fracture of distal end of left femur: Status: Acute Plan Patient's operative extremity was marked. Discussed planned procedure with son and patient. All questions were answered. Plan for intramedullary nailing with supplementary plate fixation of distal femur. Patient will return to her preoperative facility after surgery. She will transitioned to hospice care. We will use local anesthetic for pain control around the fracture site. Also discussed likely necessity of opioid therapy for pain control during her hospice stay. This will require striking a balanced between minimizing her sedation and keeping her as comfortable as possible with the time that she has left.
--- NOTE | 2023-12-09 13:41 | CM.DANOTE ---
Patient is an 83 yo female who was admitted on 12/08/23 for GLF/Hip Fx. Pt has [facility] and [facility] and [facility] for insurance and her PCP is Landen Diamond. EMR was reviewed. Per MD, pt with hx of breast CA and kidney disease and had a GLF at SNF with Femur Fx and plan is Ortho Surgery today around 1400 for comfort and then likely Hospice. SW spoke to [facility] admissions and confirmed pt is a LTC resident at their facility and SW updated on above and they confirm they can accept pt back at d/c and appreciative of Hospice coordination. SW met bedside with pt and her adult son Uri and pt A&O x4 and confirms she resides at [facility] for at least the past year and her health and quality of life have steadily declined over the past couple years and pt states she watched her go through dialysis with his kidney disease and pt refuses to pursue dialysis and states her mobility was very limited at baseline and she does not wish to pursue SNF Rehab for strengthening at this time and preference is [facility] which currently is the only hospice agency serving [facility]. Pt's DPOA on file and pt confirms 1)Dtr Becca 2) Dtr Tayla 3) son Uri and her POLST confirms [facility]. SW discussed process of making Hospice referral, Hospice Info Visit and then confirming they are willing to sign consents for Start of Care. Pt states she has watched to process of hospice with LTC SNF residents and has a good idea of Hospice services but very agreeable to Hospice Info Visit likely tomorrow post surgery with her family on speaker phone. SW made [facility] referral and included POLST and DPOA pwk and faxed and Elmer at Hospice will call family later today to schedule for Info Visit tomorrow post surgery. Plan: SW to follow tomorrow after pt's femur surgery this afternoon to determine if PT/OT needed for bed mobility teaching and completion of Hospice Info Visit to confirm plan of pt return to [facility] with [facility] to start. NADINE Marte Discharge Planning/Care Management CM Discharge Assessment Start: 12/09/23 13:35 Freq: Status: Active Protocol: Document 12/09/23 13:36 BF (Rec: 12/09/23 13:41 BF [id number]) Discharge Planning Assessment Assigned [employer] NADINE Abreu DPOA/Assigned Designee Name Dtkaterin Hudson and Dtkaterin Bourne Contact Information [phone] Advance Directives? Yes Advance Directives on File Yes History Provided By Patient,Medical Record Has Patient been admitted in last 30 No days? Prior Living Arrangements Skilled Nurse Facility Household Members none Type of transporation used prior to Relies on Others admit Facility Name Admitted From: [facility] Willing to Return to Facility? Yes Independent with ADL's No Is patient alert and oriented? Yes Needs Assistance With Meal Prep,Managing Medications ,Home Chores / Shopping Caregiver for Another No DME Already Rented / Owned Wheelchair,FWW / Walker Patient/Family Preference Nursing Home Facility Comment Return to [facility] with [facility] referral Barriers to Discharge No Discharge Plan Hospice Transportation Arrangement Facility van if pt can tolerate w/c after surgery Referrals Initiated Nursing Home,Other Additional Comment [facility] referral made If patient plan is SNF: Has PASSR been No: Return to SNF, no PASRR completed? needed Medicare Choice List Provided Yes Medicare choice list reviewed on patient,family electronic tablet with SNF/HH Preference [facility] Has Agency SNF been contacted Yes Whiteboard Updated in Patient Room with Yes name and ext. # of [facility] [employer] [facility] Review Status In Process Please Provide Date Initial DC 12/09/23 Assessment Was Performed Next Review Type Continued Stay Review
[2023-12-09] MEDS: LACTATED RINGERS 1,000 ML 42 ML IV (13:43)
[2023-12-09] MEDS: CEFAZOLIN 2 GM/100 ML PREMIX 100 ML IV (14:30)
[2023-12-09] MEDS: ROPIVACAINE/EPI/CLONIDINE/KET 50 ML SYRINGE INJ (15:14)
[2023-12-09] MEDS: TRANEXAMIC ACID 1,000 MG in SODIUM CHLORIDE 0.9% 100 ML 200 MG IV (15:16)
--- NOTE | 2023-12-09 15:26 | SUR.OPER ---
Supine on padded OR bed, head on pillow, arms secured on padded arm boards at <90 degrees abduction, legs uncrossed, safety belt at abdomen, tape over blanket over lower right leg.
--- NOTE | 2023-12-09 16:11 | PM.OP.1 ---
Operative Date/Time/Diagnoses Date of procedure: 12/09/23 Pre-op diagnosis: Periprosthetic left femur fracture Post-op diagnosis: same Procedure & Clinicians Procedure: Intramedullary nailing of left femur fracture Open reduction internal fixation left femur fracture Same procedure as scheduled: Yes Surgeon: Ulises Banks Tassel Clipper: Rupert Guzman Anesthesia Type: General Operative Notes Estimated Blood Loss (mL): 250 Procedure in detail: This 83-year-old female patient is a senior care resident. She has been considering transitioning to hospice care due to multiple medical comorbidities and minimal anticipated longevity. She was standing with assistance when she sustained a periprosthetic left femur fracture. She was brought to the emergency department and evaluated. She was admitted to the hospitalist service. They cleared her for surgery. I met her the day of surgery in her hospital room and discussed the risks and benefits of surgery with her. Specifically the risk of perioperative mortality was discussed. The patient has a DNR order it did not wish this to be lifted during the procedure. The patient was very much in good mental condition and able to understand fully the implications of her injury. I also discussed at length with her son. I answered all of their questions. I marked the operative site. I signed informed consent. The patient's son was very clear that his goals for her surgery were palliative in nature. He did not anticipate her making any functional recovery and hope that something could be done which would allow her to have less discomfort. I discussed this with him in detail and explained that I would prioritize expediency with the procedure to limit her blood loss and risk of any perioperative complications as well as prioritizing maximization of fixation rigidity to minimize any motion through her fracture site. The patient was brought back to the operating room and placed supine on the operating table. She was prepped and draped in the usual sterile fashion. A time-out procedure was performed. The skilled assistance of a physician assistant store manager sales was required throughout the surgery for holding the reduction, room set up, wound closure, and soft tissue retraction. Without his assistance the surgery would have been more challenging. Tranexamic acid and Ancef were administered I utilized the patient's old total knee incision. I did not need to extend it proximally or distally. Upon dissecting down through the superficial tissues I noted that the anterior fragment of her fracture had protruded through her quadriceps tendon. There was a large defect in her quadriceps tendon. I freed this up. I performed a lateral parapatellar arthrotomy. I extended this down to the tibial base plate. This allowed me good access to the femoral component. I noted that the femoral component remained well fixed to bone. I inserted a guidewire down the open box of the implant which appeared to be a cruciate retaining implant. I noted that this did not have very rigid stability. I could manipulate it in really any direction I desired. I did attempt to position it on AP and lateral radiographs however it was entirely seated was then cancellous bone and therefore I could not get it to maintain in any particular position. I therefore used the opening Reamer to open up the bone proximal to the open box of the femoral component. I inserted a reduction finger through that hole. I was able to feel the finger in the wound proximally. I passed the finger into the proximal femur and passed it up near the lesser trochanter. I then passed a ball-tip guidewire which I passed up to the piriformis fossa. I removed the finger and measured off of the ball-tipped guidewire. It measured approximately 390 mm. I therefore selected a 380 mm nail. I reamed with an 11.5 mm Reamer for a 10 mm nail. I verified that the nail was appropriately seated in the instrumentation jig and passed it over the guidewire up to the proximal femur. I obtained AP and lateral fluoroscopic images demonstrating that it appropriately crossed the fracture line. At this point in time the fracture was short. I planned to address this later. I obtained images of the joint line to evaluate the AP and lateral positioning of the nail at the joint line. I was satisfied with these. I therefore oriented the jig perpendicular to the axis of the femur and placed the interlocks through the jig. The Synthes system allows a locking plate to be placed laterally allowing interlocks to pass through the plate and then through the nail. I placed 2 5.0 mm interlocks in this fashion and locked them into the locking attachment washer. I additionally placed an oblique interlock. I tried to place the lateral oblique interlock however it ran into the corner of the femoral component. I placed supplementary 3.5 mm locking screws through the locking attachment washer laterally. I verified the position of all of the screws fluoroscopically on AP and lateral images before moving forward. I then adjusted the radiolucent triangle to provide additional traction. I pulled length and held it in place with a stack of towels. My assistant store manager sales held this position in place and I then moved proximally. I obtained a perfect [place] image of the proximal interlock. I manipulated the drill until it was in the center of the interlock. I drilled through and verified appropriate positioning through the interlock fluoroscopically. I measured it on a lateral radiograph. I then placed that screw, which was a 36 mm screw. In similar fashion I drilled the more proximal interlock. I placed a 38 mm screw through that 1. I returned to the fracture site and again assessed fluoroscopically the quality of the reduction. I noted that alignment was appropriate. It was somewhat splayed apart at the fracture site. I was able to manually improved this working through the wound. I placed a cerclage cable to attempt to hold this. Unfortunately when tensioning this introduced slight comminution in the intercalary piece. The cable maintained good fixation however so I left it in place. The intercalary piece was slightly displaced but I elected not to place additional cerclage cables due to concerns that I would further fragment the piece. I removed the radiolucent triangle and obtained final fluoroscopic images. I was satisfied with the overall length alignment and rotation of the fracture. All of the hardware was appropriately positioned. I had good stable fixation. I manipulated the femur to assess the fixation and noted that it moved as a unit appropriately. I copiously irrigated the wound. I closed the lateral parapatellar arthrotomy as well as the traumatic defect in the quadriceps tendon where fracture fragments had protruded anteriorly using 1. Vicryl. I backed this up with Stratafix through that area. The wound was closed using a combination of 2-0 Vicryl and sean. The proximal interlock wound was likewise closed with 2-0 Vicryl and sean. Post-operative Plan for aftercare: 1. Patient will be weight-bearing as tolerated. She will not actually likely ambulate much given her poor preoperative function so she will self limit 2. Sean to remain in place for 3 weeks. Can be pulled at patient's facility 3. Follow up in 2-3 weeks for wound check with [facility]. If patient does not desire to leave her facility for follow up it would be appropriate to skip this visit although I would request that her facility send us a photograph of the wound so we can see how it is healing 4. I would typically obtain follow up radiographs to monitor healing of this fracture. I will be happy to see the patient back in clinic at any time for repeat imaging. If it is burden some for the patient to come to clinic, heroic efforts do not need to be made to get her back for repeat x-rays 5. Overall my only real concern for this patient is doing everything we can with the time she has a left to minimize her pain. A multimodal regimen will be essential. Additionally Opiate therapy will likely be appropriate for the remainder of her life
[2023-12-09] MEDS: ONDANSETRON 4 MG ODT PO (17:48)
[2023-12-09] MEDS: PRIMIDONE 50 MG TABLET 125 MG PO (18:14)
[2023-12-09] MEDS: SODIUM CHLORIDE NASAL SPRAY 1 SPRAY NASAL (18:15)
--- NOTE | 2023-12-09 18:52 | PC.NURSE ---
Day shift: Notified MD Lobato of patient's low urine output (approximately 150cc this shift). Asked if fluids should be given. MD Lobato said not at this time.
[2023-12-09] MEDS: ASPIRIN EC 81 MG TABLET PO (22:14)
[2023-12-09] MEDS: SENNOSIDES 8.6 MG TABLET 17.2 MG PO (22:15)
[2023-12-09] MEDS: CEFAZOLIN VIAL 1 GM in SODIUM CHLORIDE 0.9% 100 ML IV (22:16)
--- NOTE | 2023-12-09 22:55 | PC.NURSE ---
Patient has been more sedated since the surgery today, Hypotensive and low urine output. Per alejandro HALL, Dr. Lobato on day shift, pt's son and social services analyst the plan is for pt to go on hospice care. shift foreman MD Dr. Russ awared and no new orders received. I spoke to the patient son before he went home to make sure that the plan of care was to go on hospice, son stated My mom doesn't want CPR or any heroic things done to her, she just want to . Pt also stated she's tire and wants to . No bp meds given tonight as well as narcotics so far. Pt able to take her bowel medications, aspirin and gabapentin.
[2023-12-10] VITALS (15 sets, daily range): BP systolic 101–136; BP diastolic 45–75; PULSE 73–84; RESP 16–20; TEMP 35.7–36.2; O2SAT 94–99
[2023-12-10] MEDS: CEFAZOLIN VIAL 1 GM in SODIUM CHLORIDE 0.9% 100 ML IV (06:04)
[2023-12-10] MEDS: SODIUM CHLORIDE 0.9% FLUSH 10 ML IV ×3 (06:04→20:24)
[2023-12-10 06:34] LABS: Add Manual Diff / Slide Review NO; Basophils Absolute Auto 0 /uL (0-100); Basophils Percent Auto 0.4 % (0-2); Eosinophils Absolute Auto 0 /uL (0-450); Eosinophils Percent Auto 0.2 % (2-4); Lymphocytes Absolute Auto 500 /uL (1100-4500); Lymphocytes Percent Auto 4.8 % (25-40); Mean Corpuscular HGB Conc 33.9 % (30-36); Mean Corpuscular Hemoglobin 35.9 PG (26-34); Mean Corpuscular Volume 105.7 fL (80-100); Monocytes Absolute Auto 1000 /uL (0-900); Monocytes Percent Auto 9.3 % (3-14); Neutrophils Absolute Auto 9300 /uL (1500-7000); Neutrophils Percent Auto 85.3 % (50-75); Platelet Count 190 X10^3/uL (150-400); Red Blood Cell Count 1.96 X10^6/uL (4.0-5.2); Red Cell Distribution Width 14.4 % (11.6-14.8); White Blood Cell Count 10.9 X10^3/uL (4.5-11.0)
[2023-12-10 06:42] LABS: Hematocrit 20.7 % (36-46)
[2023-12-10 07:03] LABS: BUN Creatinine Ratio 23.2 (6-22); Blood Urea Nitrogen 65 mg/dL (7-17); Calcium 9.5 mg/dL (8.4-10.2); Carbon Dioxide 22 mmol/L (22-32); Chloride 101 mmol/L (98-107); Estimated Glomerular Filt Rate 16 mL/min (>60); Glucose 108 mg/dL (80-110); HEMOLYSIS < 15 (0-50); Magnesium 1.8 mg/dL (1.6-2.3); Potassium 5.3 mmol/L (3.4-5.1); Sodium 132 mmol/L (137-145)
[2023-12-10] MEDS: ACETAMINOPHEN 325 MG TABLET 650 MG PO ×2 (08:36→17:35)
[2023-12-10] MEDS: polyethylene glycoL 3350 17 GM POWD.PACK PO (08:36)
[2023-12-10] MEDS: OXYCODONE IR 5 MG TABLET PO (08:36)
[2023-12-10] MEDS: DOCUSATE 100 MG CAPSULE PO ×2 (08:37→20:23)
[2023-12-10] MEDS: LORATADINE 10 MG TABLET PO (08:37)
[2023-12-10] MEDS: GABAPENTIN 100 MG CAPSULE 200 MG PO ×2 (08:37→20:22)
[2023-12-10] MEDS: ASPIRIN EC 81 MG TABLET PO ×2 (08:37→20:22)
[2023-12-10] MEDS: PRIMIDONE 50 MG TABLET 250 MG PO (08:37)
[2023-12-10] MEDS: LEVOTHYROXINE 125 MCG TABLET PO (08:38)
--- NOTE | 2023-12-10 10:30 | P.PN_ITS ---
Subjective Subjective Interval history: 83 F with distal femur fracture. Feels tired today, no complaints of pain this morning. Has an ELVIA this morning, Hg 7 on labs likely due to blood loss from surgery yesterday. Ordered 1U PRBC after goals discussion this morning with patient. Exam Vital Signs (past 8 hours): - 12/10/23 03:41 12/10/23 04:00 12/10/23 05:00 Temperature 96.7 F L Pulse Rate 84 Respiratory Rate 17 Blood Pressure 128/59 L Pulse Oximetry 96 99 Oxygen Delivery Method CPAP Nasal Cannula Oxygen Flow Rate 2 2 0 12/10/23 08:00 12/10/23 09:25 Temperature 96.6 F L Pulse Rate 80 Respiratory Rate 18 Blood Pressure 103/45 L Pulse Oximetry 94 98 Oxygen Delivery Method Room Air Oxygen Flow Rate 2 0 Fraction of Inspired Oxygen 28 SaO2/FiO2 Ratio 339 Oxygen Delivery Method Room Air Oxygen Flow Rate 0 Narrative Exam Narrative: General:? Patient is well developed, obese with BMI 38.9. pale Chest:? Normal AP diameter and contour without kyphoscoliosis, no tachypnea, equal chest rise bilaterally. Lungs:? CTA b/l no wheezing rhonchi or rales. Cardio:?RRR no m/r/g. Abdomen: S NT ND. Neuro:? Alert and orientated x3 though a bit groggy after pain medication,? sensation to touch intact in all extremities, no gross deficits noted of cranial nerves. Psych:? Patient has a well-kept appearance, appropriate affect, mental status attitude thought context and judgment are appropriate for age. Objective Labs 12/10/23 06:25 12/10/23 06:25 Labs: Laboratory Results - last 24 hr 12/09/23 12/10/23 12:55 06:25 WBC 10.9 RBC 1.96 L Hgb 7.0 L Hct 20.7 L* MCV 105.7 H MCH 35.9 H MCHC 33.9 RDW 14.4 Plt Count 190 Neut % (Auto) 85.3 H Lymph % (Auto) 4.8 L [place] % (Auto) 9.3 Eos % (Auto) 0.2 L Baso % (Auto) 0.4 Neut # (Auto) 9300 H Lymph # (Auto) 500 L [place] # (Auto) 1000 H Eos # (Auto) 0 Baso # (Auto) 0 Sodium 132 L Potassium 5.3 H D Chloride 101 Carbon Dioxide 22 BUN 65 H Creatinine 2.80 H Estimated GFR 16 L BUN/Creatinine Ratio 23.2 H Glucose 108 Calcium 9.5 Magnesium 1.8 Blood Type O Positive Antibody Screen Negative Crossmatch See Detail [facility] Medical History Rheumatoid arthritis Parathyroid abnormality Hypothyroidism (acquired) Surgical History H/O parathyroidectomy Social History household members: none Smoking Status: Never smoker Assessment & Plan Assessment & Plan narrative: 1. Acute pathologic left distal femur fracture - s/p ORIF with IM nail on 12/09. - PT evaluation ordered for bed mobility primarily, will see tomorrow, held PT today given anemia and transfusion. - plan is to return to [facility] on hospice 2. Acute blood loss anemia - likely secondary to operative interventions. - transfuse 1U PRBC today. 3. hypercalcemia, resolved - mild, improved with fluids. Now resolved. PTH sent given prior history but result still pending. 3. hypothyroidism - TSH borderline low with normal free t4. - continue home levothyroixine 125 mcg. Recommend repeat TSH in 4-6 weeks with PCP if within goals of care to see if dose adjustment is needed. 4. HTN - continue home medications including furosemide and nifedipine and hydralazine. 5. ELVIA on CKD stage IV - likely ELVIA due to acute blood loss anemia, Cr up to 2.8 today from baseline 2.1-2.3. 6. Bipolar disorder - continue home primidone without change Code: DNR, surrogate is patient's daughter Dispo: Admitted inpatient, anticipate discharge back to [facility] on hospice. I have utilized all available immediate resources to obtain, update, or review the patient's current medications. Discussed with case management and PT staff today to inform and coordinate the above assessment and plan.
--- NOTE | 2023-12-10 13:21 | CM.DPC ---
DCP Ongoing Comfort Planning: Per MD, pt has low H&H after surgery yesterday afternoon and pt to get a unit of blood transfused today and not medically stable to discharge yet and anticipate possible d/c in 2-3 days on or Sat likely. PT ordered and pending for tomorrow to help support pt with bed mobility and help determine if pt can safely transport via w/c. CODEY spoke to NETTIE Payne and she will complete Hospice Info Visit with pt and family this morning around 0900. CODEY met bedside with pt and she confirms that she will contact Dtr now and pt has her cell phone in hand to be prepared for the Info Visit call shortly and pt confirms her preference is still to d/c back to [facility]. CODEY received a call from Elmer at [facility] stating family is agreeable with Hospice and they have openings this week and will put pt on their schedule for 12/13 between [id number] at [facility] since pt might not d/c until Th or Fri. CODEY updated [facility] and they are agreeable to accept pt back or Sat as long as Hospice can open within a day or so of discharge. CODEY met bedside with pt and she states she did not receive a call from Hospice for Info Visit and pt drowsy from administered medication but confirming she would like to be involved in discussion. CODEY called Elmer at [facility] and updated and she apologized as family had told her they were not sure pt would be A&O enough for discussion. Emler confirms she will call pt and discuss today. CODEY updated RN and MD. Plan: CODEY to follow closely for plan of d/c to [facility] when medically stable and [facility] to open Saturday this 12/13/23 between [id number]. SW to help determine closer to d/c if pt can safely transport via w/c at d/c, if BLS needed then POLST and DPOA pwk on file. Lois Corrales MSW
--- NOTE | 2023-12-10 13:46 | PT-IP ANOTE ---
PT eval received and EMR reviewed. pt with Hgb of 7 and Hct of 20.7. talked with nurse to inform regarding putting pt on hold for today due to low H&H and pt needing blood transfusion. also informed regarding clarification with use of knee immobilizer and walking boot as well as weight bearing on RLE. per hospitalist during round meeting: agreed to have pt on hold for today. hospitalist stated that he does not know anything regarding pt's knee immobilizer and walking boot. nurse agreed to call ortho MD for clarifications. will f/u on pt tomorrow.
--- NOTE | 2023-12-10 15:55 | P.PN_ITS ---
Subjective Subjective Date Patient Seen: 12/10/23 Time Patient Seen: 13:00 Interval history: Patient states she is rather tired this morning. Denies left leg pain at rest. She notes any movement left leg she does have [id number] discomfort though. Exam Vital Signs (past 8 hours): - 12/10/23 08:00 12/10/23 09:25 12/10/23 11:17 Temperature 96.6 F L 96.3 F L Pulse Rate 80 75 Respiratory Rate 18 16 Blood Pressure 103/45 L 101/60 Pulse Oximetry 94 98 Oxygen Delivery Method Room Air Oxygen Flow Rate 2 0 12/10/23 11:35 12/10/23 12:00 Temperature 97.0 F L 97 F L Pulse Rate 77 77 Respiratory Rate 18 18 Blood Pressure 123/48 L 123/48 L Pulse Oximetry 95 Oxygen Delivery Method Oxygen Flow Rate 2 Fraction of Inspired Oxygen 28 SaO2/FiO2 Ratio 339 Oxygen Delivery Method Room Air Oxygen Flow Rate 2 Narrative Exam Narrative: 83-year-old female resting comfortably in bed no apparent distress. Knee immobilizer in place on the left. Dressing is clean, dry and intact. She is able to waiver ankle. Minimal movement of her left toes. Her left foot is warm and dry. Good capillary refill. Sensation grossly intact to light touch. Right leg/lower extremity is in a walking boot. Const General: comfortable Orientation: alert Objective Labs 12/10/23 06:25 12/10/23 06:25 Labs: Laboratory Results - last 24 hr 12/09/23 12/10/23 12:55 06:25 WBC 10.9 RBC 1.96 L Hgb 7.0 L Hct 20.7 L* MCV 105.7 H MCH 35.9 H MCHC 33.9 RDW 14.4 Plt Count 190 Neut % (Auto) 85.3 H Lymph % (Auto) 4.8 L [place] % (Auto) 9.3 Eos % (Auto) 0.2 L Baso % (Auto) 0.4 Neut # (Auto) 9300 H Lymph # (Auto) 500 L [place] # (Auto) 1000 H Eos # (Auto) 0 Baso # (Auto) 0 Sodium 132 L Potassium 5.3 H D Chloride 101 Carbon Dioxide 22 BUN 65 H Creatinine 2.80 H Estimated GFR 16 L BUN/Creatinine Ratio 23.2 H Glucose 108 Calcium 9.5 Magnesium 1.8 Blood Type O Positive Antibody Screen Negative Crossmatch See Detail [facility] Medical History Rheumatoid arthritis Parathyroid abnormality Hypothyroidism (acquired) Surgical History H/O parathyroidectomy Social History household members: none Smoking Status: Never smoker Assessment & Plan Post-op Postoperative Procedures: Procedures Operation Date: 12/09/23 13:45 Actual Procedure Side Surgeon p Intramedullary Nailing Femur and ORIF distal femur Left Ulises Banks MD Postoperative day: 1 Postoperative status narrative: Stable, anemia due to acute blood loss during surgery hospitalist ordered 1 unit packed red blood cells to be given today. Postoperative plan narrative: Status post intramedullary nailing of the left femur fracture, open reduction internal fixation left femur fracture. Weight-bearing as tolerated Hamill to remain in place for 3 weeks. Hamill can be pulled at patient's facility if needed. Follow up in 2-3 weeks for wound check outpatient orthopedic clinic. If patient does not desire to leave her facility for follow-up it would be appropriate to skip this visit although I would request that her facility Saturday say photograph of the wound so that we can see how it is healing. I would typically obtain follow up radiographs to monitor healing of this fracture. I will be happy to see the patient back in clinic at any time for repeat imaging. If it is burden some for the patient to come to clinic, heroic efforts do not need to be made to get her back for repeat x-rays Overall my only real concern for this patient is doing everything we can with the time she has a left to minimize her pain. A multimodal regimen will be essential. Additionally Opiate therapy will likely be appropriate for the remainder of her life
[2023-12-10] MEDS: PRIMIDONE 50 MG TABLET 125 MG PO (17:34)
[2023-12-10] MEDS: HYDRALAZINE 25 MG TABLET PO (17:34)
[2023-12-10] MEDS: MELATONIN 3 MG TABLET PO (20:22)
[2023-12-11] VITALS (18 sets, daily range): BP systolic 111–137; BP diastolic 34–61; PULSE 73–98; RESP 15–20; TEMP 36.2–36.4; O2SAT 92–98
[2023-12-11 06:34] LABS: Add Manual Diff / Slide Review NO; Basophils Absolute Auto 0 /uL (0-100); Basophils Percent Auto 0.4 % (0-2); Eosinophils Absolute Auto 200 /uL (0-450); Hematocrit 21.4 % (36-46); Hemoglobin 7.3 g/dL (12.0-16.0); Lymphocytes Absolute Auto 400 /uL (1100-4500); Lymphocytes Percent Auto 5.2 % (25-40); Mean Corpuscular HGB Conc 34.2 % (30-36); Mean Corpuscular Hemoglobin 34.8 PG (26-34); Mean Corpuscular Volume 101.6 fL (80-100); Monocytes Absolute Auto 700 /uL (0-900); Monocytes Percent Auto 8.8 % (3-14); Neutrophils Absolute Auto 6800 /uL (1500-7000); Neutrophils Percent Auto 83.6 % (50-75); Platelet Count 140 X10^3/uL (150-400); Red Blood Cell Count 2.11 X10^6/uL (4.0-5.2); Red Cell Distribution Width 17.2 % (11.6-14.8); White Blood Cell Count 8.2 X10^3/uL (4.5-11.0)
[2023-12-11 06:52] LABS: BUN Creatinine Ratio 21.4 (6-22); Blood Urea Nitrogen 74 mg/dL (7-17); Carbon Dioxide 21 mmol/L (22-32); Chloride 100 mmol/L (98-107); Estimated Glomerular Filt Rate 13 mL/min (>60); Glucose 97 mg/dL (80-110); HEMOLYSIS < 15 (0-50); Magnesium 1.9 mg/dL (1.6-2.3); Potassium 5.6 mmol/L (3.4-5.1); Sodium 131 mmol/L (137-145)
[2023-12-11] MEDS: DOCUSATE 100 MG CAPSULE PO ×2 (08:36→20:14)
[2023-12-11] MEDS: ASPIRIN EC 81 MG TABLET PO ×2 (08:36→20:13)
[2023-12-11] MEDS: LEVOTHYROXINE 125 MCG TABLET PO (08:37)
[2023-12-11] MEDS: PRIMIDONE 50 MG TABLET 250 MG PO (08:38)
[2023-12-11] MEDS: ACETAMINOPHEN 325 MG TABLET 650 MG PO (08:41)
[2023-12-11] MEDS: LORATADINE 10 MG TABLET PO (08:42)
[2023-12-11] MEDS: OXYCODONE IR 5 MG TABLET PO (08:42)
[2023-12-11] MEDS: HYDRALAZINE 25 MG TABLET PO ×3 (08:44→20:12)
[2023-12-11] MEDS: GABAPENTIN 100 MG CAPSULE 200 MG PO ×2 (08:44→20:14)
[2023-12-11] MEDS: NIFEdipine 30 MG TAB ER 90 MG PO (08:57)
[2023-12-11] MEDS: polyethylene glycoL 3350 17 GM POWD.PACK PO (09:00)
[2023-12-11] MEDS: SODIUM ZIRCONIUM CYCLOSILICATE 10 GM POWD.PACK PO ×3 (09:05→20:16)
--- NOTE | 2023-12-11 13:25 | PT-IP ANOTE ---
per hospitalist during rounds meeting: d/c PT eval order. pt is going to hospice care and back to [facility].
--- NOTE | 2023-12-11 13:51 | P.PN_ITS ---
Subjective Subjective Interval history: Mary is a 83 year old female who is POD#2 Intramedullary nailing of left femur fracture, open reduction internal fixation left femur fracture by Dr. Banks. Patient is coming in and out of consciousness during our interview today. Son is present at the bedside (for the second half of the interview) who is patients medical POA and serves as an additional source of information. Admits to having hallucinations during our interview which son states is not new. Son reports fall occurred at her senior living which she was livivng at after using the restroom with a two person assist. Patient reports she feels comfortable, mild-no pain. She is not very mobile baseline, is usually in a wheelchair. Son reports they plan to d/c from hospital to hospice once medically stable. Patient seems to agree with this plan as well. Denies chest pain, SOB, nausea, vomiting, fever, chills. Exam Vital Signs (past 8 hours): - 12/11/23 07:40 12/11/23 07:40 12/11/23 08:00 Temperature 97.4 F L Pulse Rate 82 Respiratory Rate 16 Blood Pressure 123/48 L Pulse Oximetry 94 97 Oxygen Delivery Method Room Air Nasal Cannula Room Air Oxygen Flow Rate 2 12/11/23 08:44 12/11/23 09:30 12/11/23 12:00 Temperature 97.3 F L Pulse Rate 82 80 Respiratory Rate 16 Blood Pressure 123/48 L 114/55 L Pulse Oximetry 98 92 Oxygen Delivery Method Nasal Cannula Oxygen Flow Rate 2 0 Fraction of Inspired Oxygen 28 SaO2/FiO2 Ratio 339 Oxygen Delivery Method Nasal Cannula Oxygen Flow Rate 0 Narrative Exam Narrative: resting comfortably in bed no apparent distress Const General: comfortable Resp Effort & Inspection: able to speak in complete sentences Cardio Rate: regular rate Neuro Other: Sensation grossly intact to the lower extremities. Extrem Other: Knee immobilizer in place on the left. Left knee dressing is clean, dry and intact. Aqucel dressing over the anterior hip with moderate amount of bloody discharge. Her left foot is warm and dry. Good capillary refill. Sensation grossly intact to light touch. Right leg/lower extremity is in a walking boot. Calf compressible and non-tender. Exam limited by patients inability to stay alert during exam. Psych Mental Status: other Mood: other Thought Content: hallucinations visual Objective Labs 12/11/23 05:15 12/11/23 05:15 Labs: Laboratory Results - last 24 hr 12/09/23 12/11/23 12:55 05:15 WBC 8.2 RBC 2.11 L Hgb 7.3 L Hct 21.4 L MCV 101.6 H D MCH 34.8 H MCHC 34.2 RDW 17.2 H Plt Count 140 L Neut % (Auto) 83.6 H Lymph % (Auto) 5.2 L [place] % (Auto) 8.8 Eos % (Auto) 2.0 Baso % (Auto) 0.4 Neut # (Auto) 6800 Lymph # (Auto) 400 L [place] # (Auto) 700 Eos # (Auto) 200 Baso # (Auto) 0 Sodium 131 L Potassium 5.6 H Chloride 100 Carbon Dioxide 21 L BUN 74 H Creatinine 3.45 H Estimated GFR 13 L BUN/Creatinine Ratio 21.4 Glucose 97 Calcium 9.0 Magnesium 1.9 Crossmatch See Detail [facility] Medical History Rheumatoid arthritis Parathyroid abnormality Hypothyroidism (acquired) Surgical History H/O parathyroidectomy Social History household members: none Smoking Status: Never smoker Assessment & Plan Assessment and plan (1) Fracture, femur, distal: Qualifiers: Encounter type: subsequent encounter Fracture type: closed Fracture morphology: unspecified fracture morphology Laterality: left Fracture healing: with routine healing Qualified Code(s): S72.402D - Unspecified fracture of lower end of left femur, subsequent encounter for closed fracture with routine healing Status: Acute (2) History of total left knee replacement: Status: Acute (3) Fracture of fibula, distal, right, closed: Qualifiers: Encounter type: subsequent encounter Fracture morphology: unspecified fracture morphology Fracture healing: with routine healing Qualified Code(s): S82.831D - Other fracture of upper and lower end of right fibula, subsequent encounter for closed fracture with routine healing Status: Acute Assessment & Plan narrative: Patient will be weight-bearing as tolerated. She will not actually likely ambulate much given her poor preoperative function so she will self limit. She does not need to remain in the walking boot if she is not ambulating. 2. [place] to remain in place for 3 weeks. Can be pulled at patient's facility 3. Follow up in 2-3 weeks for wound check with [facility]. If patient does not desire to leave her facility for follow up it would be appropriate to skip this visit although I would request that her facility send us a photograph of the wound so we can see how it is healing 4. I would typically obtain follow up radiographs to monitor healing of this fracture. I will be happy to see the patient back in clinic at any time for repeat imaging. If it is burden some for the patient to come to clinic, heroic efforts do not need to be made to get her back for repeat x-rays 5. Overall my only real concern for this patient is doing everything we can with the time she has a left to minimize her pain. A multimodal regimen will be essential. Additionally Opiate therapy will likely be appropriate for the remainder of her life
--- NOTE | 2023-12-11 13:59 | DIET.CONS ---
Dietary Consultation Note Admission Date: 12/08/2023 14:06 Assessment: RD consulted for obesity. Rec OP MNT to address weight management. Ht: 167.64 cm Wt: 109.316 kg BMI: 38.9 Last BM: () MNA: 7 Hugo Score: 17 Diet: 12/10/23 Breakfast General (Regular) Diet Diet Modifications: Food Texture: Level 7 - Regular Liquid Consistency: Level 0 - Thin Electronically Signed by: Jaimie Cannon 12/11/23 13:59 Clinical Dietitian [address] [address]
--- NOTE | 2023-12-11 14:06 | CM.DPNOTE ---
DCP Cont Plan: Discharge anticipated Saturday, back to [facility] to open services Saturday afternoon between 2-3pm, transport via BLS. Planned confirmed with Elmer at [facility] and with son Uri at bedside. CM team following closely for coordination of discharge plan. YURY
[2023-12-11 14:22] LABS: BUN Creatinine Ratio 20.2 (6-22); Blood Urea Nitrogen 76 mg/dL (7-17); Calcium 8.5 mg/dL (8.4-10.2); Carbon Dioxide 21 mmol/L (22-32); Chloride 98 mmol/L (98-107); Estimated Glomerular Filt Rate 11 mL/min (>60); Glucose 112 mg/dL (80-110); HEMOLYSIS < 15 (0-50); Potassium 5.4 mmol/L (3.4-5.1); Sodium 128 mmol/L (137-145)
--- NOTE | 2023-12-11 16:10 | PM.PN.1 ---
Subjective Subjective Interval history: Patient complaining of cough. Would like a suppressant. Hospice arranged for saturday. Exam Vital Signs (past 8 hours): - 12/11/23 08:44 12/11/23 09:30 12/11/23 12:00 Temperature 97.3 F L Pulse Rate 82 80 Respiratory Rate 16 Blood Pressure 123/48 L 114/55 L Pulse Oximetry 98 92 Oxygen Delivery Method Nasal Cannula Oxygen Flow Rate 2 0 12/11/23 14:35 12/11/23 15:00 Temperature Pulse Rate 73 Respiratory Rate Blood Pressure 137/40 L Pulse Oximetry 93 Oxygen Delivery Method Nasal Cannula Oxygen Flow Rate 1 Fraction of Inspired Oxygen 28 SaO2/FiO2 Ratio 339 Oxygen Delivery Method Nasal Cannula Oxygen Flow Rate 1 Narrative Exam Narrative: resting comfortably in bed no apparent distress, intermittent coughing Const General: comfortable Resp Effort & Inspection: able to speak in complete sentences Cardio Rate: regular rate Neuro Other: Sensation grossly intact to the lower extremities. Extrem Other: Knee immobilizer in place on the left. Left knee dressing is clean, dry and intact. Aqucel dressing over the anterior hip with moderate amount of bloody discharge. Her left foot is warm and dry. Good capillary refill. Sensation grossly intact to light touch. Right leg/lower extremity is in a walking boot. Calf compressible and non-tender. Psych Mental Status: other Mood: other Thought Content: hallucinations visual Objective Labs 12/11/23 05:15 12/11/23 14:05 Labs: Laboratory Results - last 24 hr 12/09/23 12/11/23 12/11/23 12:55 05:15 14:05 WBC 8.2 RBC 2.11 L Hgb 7.3 L Hct 21.4 L MCV 101.6 H D MCH 34.8 H MCHC 34.2 RDW 17.2 H Plt Count 140 L Neut % (Auto) 83.6 H Lymph % (Auto) 5.2 L [place] % (Auto) 8.8 Eos % (Auto) 2.0 Baso % (Auto) 0.4 Neut # (Auto) 6800 Lymph # (Auto) 400 L [place] # (Auto) 700 Eos # (Auto) 200 Baso # (Auto) 0 Sodium 131 L 128 L Potassium 5.6 H 5.4 H Chloride 100 98 Carbon Dioxide 21 L 21 L BUN 74 H 76 H Creatinine 3.45 H 3.76 H Estimated GFR 13 L 11 L BUN/Creatinine Ratio 21.4 20.2 Glucose 97 112 H Calcium 9.0 8.5 Magnesium 1.9 Crossmatch See Detail [facility] Medical History Rheumatoid arthritis Parathyroid abnormality Hypothyroidism (acquired) Surgical History H/O parathyroidectomy Social History household members: none Smoking Status: Never smoker Assessment & Plan Assessment & Plan narrative: 1. Acute pathologic left distal femur fracture - s/p ORIF with IM nail on 12/09. - plan is to return to [facility] on hospice on 12/13 - patient understands she will likely be bedbound from here on out 2. Acute blood loss anemia - likely secondary to operative interventions. - transfused 1U PRBC 3. hypercalcemia, resolved - mild, improved with fluids. Now resolved. PTH sent given prior history but result still pending. 3. hypothyroidism - TSH borderline low with normal free t4. - continue home levothyroixine 125 mcg. 4. HTN - continue home medications including furosemide and nifedipine and hydralazine. 5. ELVIA on CKD stage IV, hyperkalemia - likely ELVIA due to acute blood loss anemia vs hypotension in surgery - K up to 5.6 - started lokelma - patient has said she would not want dialysis as her on it - continue to monitor 6. Bipolar disorder - continue home primidone without change Code: DNR, surrogate is patient's daughter Dispo: Admitted inpatient, anticipate discharge back to [facility] on hospice on 12/13.
--- NOTE | 2023-12-11 19:55 | PC.NURSE ---
Change in condition: Pt awake this am and at lunch. Did eat small amt and taking fluids. Able to take meds. Pt is globally disoriented. (Baseline) Was having hallucinations, thought she saw a person in a yellow sweater. She would close her eyes and then they would be gone. Please see labs. at about 1730 when it was time for dinner pt could only open her eyes say a word or two and then her head would fall back on the bed. Unable to eat or swallow medications. MD made aware. (was already aware of mentation changes) Dtrs Becca and Tayla as well as son Uri called and notified that their mother had a change in her condition. That she was close to being unresponsive. Their only concern is to keep their mother comfortable, the plan had been to discharge home with hospice. Report given to [place] COTO and made aware of pt's concern for comfort and possible need for a fentanyl patch for comfort since she has been taking pain medications post surgery. She will make doctor fuel distribution system operator nick aware. The family has picked [facility] in [place] if their mother should tonight.
[2023-12-11] MEDS: MELATONIN 3 MG TABLET PO (20:13)
[2023-12-11] MEDS: SENNOSIDES 8.6 MG TABLET 17.2 MG PO (20:14)
[2023-12-11] MEDS: POLYVINYL ALCOHOL DROPS 1 DROPS EYE-BOTH (20:15)
[2023-12-11] MEDS: SODIUM CHLORIDE 0.9% FLUSH 10 ML IV (22:31)
[2023-12-11] MEDS: SCOPOLAMINE 1 PATCH TOP (22:34)
[2023-12-11] MEDS: fentaNYL 25 MCG/PATCH TOP (22:35)
[2023-12-12 00:44] VITALS: BP 137/54; PULSE 86; RESP 15; TEMP 36.4; O2SAT 94
[2023-12-12 04:00] VITALS: BP 150/49; PULSE 102; RESP 13; TEMP 36.7; O2SAT 95
[2023-12-12 05:30] LABS: Add Manual Diff / Slide Review NO; Basophils Absolute Auto 0 /uL (0-100); Basophils Percent Auto 0.6 % (0-2); Eosinophils Absolute Auto 200 /uL (0-450); Eosinophils Percent Auto 2.3 % (2-4); Lymphocytes Absolute Auto 300 /uL (1100-4500); Lymphocytes Percent Auto 4.6 % (25-40); Mean Corpuscular HGB Conc 34.2 % (30-36); Mean Corpuscular Hemoglobin 34.6 PG (26-34); Monocytes Absolute Auto 600 /uL (0-900); Monocytes Percent Auto 9.1 % (3-14); Neutrophils Absolute Auto 5800 /uL (1500-7000); Neutrophils Percent Auto 83.4 % (50-75); Platelet Count 154 X10^3/uL (150-400); Red Blood Cell Count 1.96 X10^6/uL (4.0-5.2); Red Cell Distribution Width 16.3 % (11.6-14.8); White Blood Cell Count 6.9 X10^3/uL (4.5-11.0)
[2023-12-12 05:34] LABS: Hematocrit 19.8 % (36-46); Hemoglobin 6.8 g/dL (12.0-16.0)
[2023-12-12 05:37] LABS: BUN Creatinine Ratio 20.2 (6-22); Blood Urea Nitrogen 78 mg/dL (7-17); Calcium 8.3 mg/dL (8.4-10.2); Carbon Dioxide 21 mmol/L (22-32); Chloride 97 mmol/L (98-107); Estimated Glomerular Filt Rate 11 mL/min (>60); Glucose 101 mg/dL (80-110); HEMOLYSIS < 15 (0-50); Potassium 5.2 mmol/L (3.4-5.1); Sodium 129 mmol/L (137-145)
[2023-12-12 07:13] LABS: Calcium 9.8 mg/dL (8.7-10.3); Parathyroid Hormone, Intact 29 pg/mL (15-65)
[2023-12-12 08:00] VITALS: BP 122/49; PULSE 89; RESP 18; TEMP 36.9; O2SAT 92
[2023-12-12 08:44] VITALS: O2SAT 94
[2023-12-12] MEDS: MORPHINE 10 MG/0.5 ML ORAL SYRINGE PO ×2 (11:33→13:39)
--- NOTE | 2023-12-12 13:46 | PM.PN.1 ---
Subjective Subjective Interval history: Patient obtunded today. Family ok with full comfort care. Labs showed worsening Cr, K and anemia. Most orders discontinued and po morphine and ativan ordered. Exam Vital Signs (past 8 hours): - 12/12/23 08:00 12/12/23 08:44 Temperature 98.5 F Pulse Rate 89 Respiratory Rate 18 Blood Pressure 122/49 L Pulse Oximetry 92 94 Oxygen Delivery Method Nasal Cannula Oxygen Flow Rate 2 Fraction of Inspired Oxygen 28 SaO2/FiO2 Ratio 339 Oxygen Delivery Method Nasal Cannula Oxygen Flow Rate 2 Narrative Exam Narrative: Obtunded Objective Labs 12/12/23 04:15 12/12/23 04:15 Labs: Laboratory Results - last 24 hr 12/09/23 12/11/23 12/12/23 04:35 14:05 04:15 WBC 6.9 RBC 1.96 L Hgb 6.8 L* Hct 19.8 L* MCV 101.0 H MCH 34.6 H MCHC 34.2 RDW 16.3 H Plt Count 154 Neut % (Auto) 83.4 H Lymph % (Auto) 4.6 L [place] % (Auto) 9.1 Eos % (Auto) 2.3 Baso % (Auto) 0.6 Neut # (Auto) 5800 Lymph # (Auto) 300 L [place] # (Auto) 600 Eos # (Auto) 200 Baso # (Auto) 0 Sodium 128 L 129 L Potassium 5.4 H 5.2 H Chloride 98 97 L Carbon Dioxide 21 L 21 L BUN 76 H 78 H Creatinine 3.76 H 3.86 H Estimated GFR 11 L 11 L BUN/Creatinine Ratio 20.2 20.2 Glucose 112 H 101 Calcium 8.5 8.3 L PTH Intact 29 Calcium (PTH Intact) 9.8 PTH Intact Intraop Comment [facility] Medical History Rheumatoid arthritis Parathyroid abnormality Hypothyroidism (acquired) Surgical History H/O parathyroidectomy Social History household members: none Smoking Status: Never smoker Assessment & Plan Assessment & Plan narrative: Patient transitioned to full comfort care on 12/12. Family aware and ok with it. 1. Acute pathologic left distal femur fracture - s/p ORIF with IM nail on 12/09. 2. Acute blood loss anemia - likely secondary to operative interventions. - transfused 1U PRBC - Hgb worsening to 6.8 3. hypercalcemia, resolved - mild, improved with fluids. Now resolved. PTH sent given prior history but result still pending. 3. hypothyroidism - TSH borderline low with normal free t4. - stopped home levothyroixine 125 mcg due to comfort 4. HTN - continue home medications including furosemide and nifedipine and hydralazine. 5. ELVIA on CKD stage IV, hyperkalemia - likely ELVIA due to acute blood loss anemia vs hypotension in surgery - K up to 5.6 - started lokelma, then stopped due to comfort measures only - patient has said she would not want dialysis as her on it - Cr worsening with GFR 11 6. Bipolar disorder - stopped primidone Code: DNR, surrogate is patient's daughter Dispo: Will likely pass in the hospital in next 48 hours vs go to SNF on hospice.
[2023-12-13 08:00] VITALS: BP 179/73; PULSE 99; RESP 16; TEMP 37.3; O2SAT 93
--- NOTE | 2023-12-13 08:47 | P.DS_ITS ---
History of Present Illness History of Present Illness Chief complaint: Fall Narrative: This is an 83 year old female, resident of [facility], who presented after a ground level fall from her living facility. She has a PMH of breast cancer, ? thyroid cancer, hyperparathyroidism, HTN, bipolar disorder, and rheumatoid arthritis. She was found to have a distal left femur fracture on evaluation in the ER. She denies any recent chest pain, shortness of breath, nausea, vomiting, fever or chills. She denies any dizziness prior to her fall. She cannot stand much longer than a minute at baseline, she was in the restroom getting cleaned after a bowel movement when she became exhausted and fell to her knees. She has been in the process of discussing hospice with her family, due to her declining function over the recent years and poor quality of life. Orthopedics plans to provide operative interventions tomorrow, admitted to medicine for further ongoing management. Discharge Providers Provider Date of admission: 12/08/23 14:06 Discharge Date: 12/13/23 Primary care physician: REYNALDO Harris Consults: 12/08/23 12:51 Consult to Orthopedic Surgery Stat Comment: Consulting Provider: Kareen Negron Reason for consultation: femur fracture Has provider been notified: Yes 12/08/23 16:27 Consult to Pastoral Services Routine Comment: per patient request 12/08/23 17:43 Consult to Dietitian, Adult Routine Comment: Reason For Exam: obesity Consult to Pastoral Services Routine Comment: patient request 12/09/23 17:34 Consult to Discharge Planning Routine Comment: Consult to Physical Therapy Evaluate & Treat Comment: May be weight-bearing as tolerated bilateral lower Physician Instructions: Evaluate and Treat, left knee immobilizer optional Discharge provider: Jaime Pryor DO Summary Hospital Course Discharge Diagnosis: 1. Acute pathologic left distal femur fracture - s/p ORIF with IM nail on 12/09. 2. Acute blood loss anemia - likely secondary to operative interventions. - transfused 1U PRBC - Hgb worsening to 6.8 3. hypercalcemia, resolved - mild, improved with fluids. Now resolved. PTH sent given prior history but result still pending. 3. hypothyroidism - TSH borderline low with normal free t4. - stopped home levothyroixine 125 mcg due to comfort 4. HTN - continue home medications including furosemide and nifedipine and hydralazine. 5. ELVIA on CKD stage IV, hyperkalemia - likely ELVIA due to acute blood loss anemia vs hypotension in surgery - K up to 5.6 - started lokelma, then stopped due to comfort measures only - patient has said she would not want dialysis as her on it - Cr worsening with GFR 11 6. Bipolar disorder - stopped primidone Hospital Course: Admitted for L femur fracture which was repaired on 12/09. Had postop anemia and ELVIA. Patient electing for hospice, but then her mental status worsened so she is now full comfort care. Will return to SNF on hospice and likely pass in next few days to week. Exam Vital Signs (past 8 hours): Fraction of Inspired Oxygen 28 SaO2/FiO2 Ratio 339 Oxygen Delivery Method Nasal Cannula Oxygen Flow Rate 2 Narrative Exam Narrative: Obtunded Objective Labs 12/12/23 04:15 12/12/23 04:15 PFSH Medical History Rheumatoid arthritis Parathyroid abnormality Hypothyroidism (acquired) Surgical History H/O parathyroidectomy Social History household members: none Smoking Status: Never smoker Discharge Plan Discharge Plan Patient Disposition: SNF Under care of provider: Hospice Discharge orders & Medications Prescriptions: Discontinued acetaminophen 500 MG tablet 1,000 mg PO Q8H PRN (Reason: Pain (Scale Score 4-6)) Qty: 0 loratadine 10 MG tablet 10 mg PO QDAY Qty: 0 triamcinolone acetonide [Nasacort] 55 MCG/PUFF aerosol,spray 1 spray intranasal QAM Qty: 0 docusate sodium 100 MG capsule 100 mg PO BID Qty: 0 anastrozole 1 mg tablet 1 mg PO QAM nifedipine 30 mg tablet extended release 24hr 90 mg PO QAM Rx Instructions: hold for SBP <100 or HR < 60 biotin 10 mg Tablet 10 mg PO DAILY ketoconazole 2 % shampoo 1 applic topical QMWF Rx Instructions: R side of scalp polyethylene glycol 3350 [Miralax] 17 gram Powder In Packet 17 g PO QAM artificial tears solution Drops 1 drp OPHTHALMIC (EYE) QID hydralazine 25 mg tablet 25 mg PO 4XD Rx Instructions: Hold for SBP <100 or pulse <60 primidone 250 mg tablet 375 mg PO QPM phenazopyridine 95 mg Tablet 95 mg PO TID PRN (Reason: burning) mupirocin 2 % ointment 1 applic topical QAM PRN (Reason: Skin Irritation) Rx Instructions: L groin + medial buttock furosemide 20 mg tablet 40 mg PO DAILY gabapentin 100 mg capsule 200 mg PO BID docusate sodium 100 mg Tablet 100 mg PO BID levothyroxine 112 mcg tablet 125 mcg PO DAILY oxycodone 5 mg tablet 5 mg PO Q4HR PRN (Reason: Pain (Scale Score 4-6)) Lactaid 5,000 unit/mL Drops 3 unit PO TID Rx Instructions: with meals ferrous gluconate 324 mg (38 mg iron) Tablet 324 mg PO USEASDIRECTD Rx Instructions: every other day calcium carbonate-vit D3-min [Calcium-Vitamin D] 600 mg calcium- 400 unit Tablet 1 tab PO BID melatonin 3 mg Capsule 3 mg PO BEDTIME PRN (Reason: Insomnia) d-mannose 500 mg Capsule 500 mg PO QAM sennosides [senna] 8.6 mg Tablet 8.6 mg PO BID ascorbic acid (vitamin C) 250 mg Tablet 250 mg PO 3XW Rx Instructions: give every other day cholecalciferol (vitamin D3) 125 mcg (5,000 unit) Capsule 5,000 unit QAM Saline Nasal 0.65 % Aerosol,[place] 1 spray INTRANASAL QAM PRN (Reason: Dry Nasal Passages) Follow up/Referrals: Landen Field ARNP [Primary Care Provider] - Visit Report/Discharge Packet Stand Alone Forms: Patient Portal/API Discharge Data Primary Care Provider: Landen Field
[2023-12-13] MEDS: MORPHINE 10 MG/0.5 ML ORAL SYRINGE PO ×3 (09:02→11:55)
--- NOTE | 2023-12-13 10:43 | CM.DPNOTE ---
DC Note Discharge back to [facility] today as planned; BLS arranged for 1200 picker/puller, BLS form completed and signed by Dr Pryor and left for S crew with face sheet and POLST. Med list and DC Summary completed and then faxed to [facility]. Coordinated plan with RN, provider, Maria Guadalupe at [facility] and patient's son Uri. LM for daughter Becca. Updated Kallie at [facility] and faxed DC Summary. JW
--- NOTE | 2023-12-13 11:45 | PC.NURSE ---
Addendum entered by Miryam Mark R.N. 12/13/23 12:24: Packet for [facility], including hard script for morphine, given to BLS prior to transport. Original Note: Day shift: Pt continues to be minimally responsive. Bed bath given and turned Q2hrs. Sublingual morphine given. Called [facility] and gave report to Josefina. BLS arrived to transport. Report given to them. Patient's CPAP placed in patient bag and given to BLS. Patient's cell phone, home health provider, and glasses given to her daughter, Becca. No IVs/tele.
== END 2023-12-13 12:15 | DRG 480 ==
LOC: ED 13:24 → AC 14:07
PROVIDERS: Orthopaedic Surgery Adult Reconstructive Orthopaedic Surgery; Student in an Organized Health Care Education/Training Program; Admitting Provider Internal Medicine; Emergency Provider Emergency Medicine; Family Provider Registered Nurse; PCP Nurse Practitioner Family; Referring Provider Emergency Medicine; Visit Provider Internal Medicine
PROC: 0QS706Z Reposition Left Upper Femur with Intramedullary Internal Fixation Device, Open Approach (ICD-10-PCS; CPT 27245; principal; 2023-12-09 13:45)
DX: M84.452A Pathological fracture, left femur, initial encounter for fracture (principal); G93.41 Metabolic encephalopathy; M97.02XA Periprosthetic fracture around internal prosthetic left hip joint, initial encounter; N18.4 Chronic kidney disease, stage 4 (severe); D62 Acute posthemorrhagic anemia; N17.9 Acute kidney failure, unspecified; E83.52 Hypercalcemia; E03.9 Hypothyroidism, unspecified; I12.9 Hypertensive chronic kidney disease with stage 1 through stage 4 chronic kidney disease, or unspecified chronic kidney disease; S82.831D Other fracture of upper and lower end of right fibula, subsequent encounter for closed fracture with routine healing; F31.9 Bipolar disorder, unspecified; E87.5 Hyperkalemia; X58.XXXD Exposure to other specified factors, subsequent encounter; Z66 Do not resuscitate; Z51.5 Encounter for palliative care
CPT/HCPCS: 29505; 29515; 36415; 36430; 36592; 73552; 73562; 73610; 76000; 80048; 82310; 83735; 83970; 84439; 84443; 85025; 86850; 86900; 86901; 94760; 96374; 99284; 99285; C1776; P9016; J0690; J1170; J2270; J2704; J3010